=== PATIENT | female | born 1980 | race African-American/Black ===

== ENCOUNTER 2016-09-30 18:26 | Emergency (ER) | payer BC ==
[2016-09-30 18:30] VITALS: BP 129/83; BMI 35.6
--- NOTE | 2016-09-30 19:59 | DR.GENAD ---
HPI - PCP Primary Care Physician: LORI Cuenca HPI Comment HPI Comment: RIGHT 3RD MOLAR. PAIN WORSE TODAY. NO FEVER. - Complaint/Symptoms Chief Complaint Doctors Comments: TOOTH ACHE TIMES ONE DAY. Chief Complaint:: EAR AND TOOTHACHE THAT STARTED YESTERDAY - Nurses notes reviewed Nurses Notes Review: Yes - Source History Provided: Patient - Mode of Arrival Mode of Arrival: Ambulatory - Timing Onset of Chief Complaint: 09/29/16 Came on: Suddenly - Duration Duration: Constant Duration: Days - Severity Severity: Moderate PMH - PMH Past Medical History: Yes Past Medical History: Anemia, Diabetes, Hypertension Past Surgical History: Yes Surgical History: Cholecystectomy - Family History History of Family Medical Conditions: Yes Family Medical History: Diabetes Mellitus, Hypertension - Social History Does patient currently use any type of tobacco product: No Have you used tobacco products in the last 12 months: No Type of Tobacco Use: None Does any household member use tobacco: No Alcohol Use: None Do you use any recreational Drugs:: No Lives With: Family Lives Where: Home - infectious screening In the last 2 months have you had wt loss of >10#?: NO Have you had fever, night sweats or hemotysis?: No Have you traveled outside the country in the last 6 months?: No Isolation: Standard ROS - Review of Systems Constitutional: negative: Chills, Fever, Weakness, Fatigue Eyes: No Symptoms Reported. negative: Eye Pain, Discharge ENTM: Mouth Swelling. negative: Ear Pain, Nose Discharge, Nose Congestion, Loose Teeth (PAIN RIGHT LOWER 3RD MOLAR.), Throat Pain Respiratoy: No Symptoms Reported. negative: Productive Cough, Non-Productive Cough, Short of Breath, Wheezing, Hemoptysis Cardiovascular: No Symptoms Reported. negative: Chest Pain Gastrointestinal/Abdominal: negative: Nausea Genitourinary: No Symptoms Reported Neurological: No Symptoms Reported Musculoskeletal: Back Pain Integumentary: No Symptoms Reported Hematologic/Lymphatic: No Symptoms Reported Endocrine: No Symptoms Reported All Other Systems: Reviewed and Negative PE - Vital Signs Vitals: Temperature 98.0 F Pulse Rate 106 Respiratory Rate 20 Blood Pressure [Right Arm] 136/81 Blood Pressure [Left Arm] 147/83 Blood Pressure 129/83 O2 Sat by Pulse Oximetry 100 - General Limitations: No Limitations General Appearance: Alert - Head Head Exam: Normal Inspection - Eyes Eye exam: Normal Appearance - ENT ENT Exam: Normal External Ear Exam Mouth Exam: Normal Inspection (3RD LOWER MOLAR INFLAME.GUM SWOLLEN AND TENDER.) , Other Throat Exam: Normal Inspection - Neck Neck Exam: Normal Inspection - Chest Chest Inspection: Symmetric Chest Wall Rise - Respiratory Respiratory Exam: Bilateral Clear to Auscultation - Cardiovascular Cardiovascular Exam: Regular Rate, Normal Rhythm, Normal Heart Sounds - Abdominal Exam Abdominal Exam: Normal Inspection - Extremities Extremities Exam: Normal Inspection - Back Back Exam: Normal Inspection - Neurologic Neurological Exam: Alert, Oriented X3 - Psychiatric Psychiatric Exam: Normal Affect, Normal Mood - Skin Skin Exam: Normal Color MDM - Differential Diagnosis Differential Diagnosis: TOOTHACHE, GINGIVITIS Course - Education/Counseling Education/Counseling: Patient, Education Educated On: Diagnosis, Needs for Follow Up - Diagnosis Discharge Problem: Gingivitis, Pain, dental - Discharge Plan Disposition: 01 HOME, SELF-CARE Condition: Stable Prescriptions: Acetaminophen/Codeine Tab [TYLENOL w/CODEINE #3 (300 MG/30 MG) *] 1 tab PO Q4- 6H PRN #20 tab PRN Reason: Pain Amoxicillin [Amoxil 875 mg] 875 mg PO BID #20 tab Ibuprofen [MOTRIN TAB 600 MG *] 600 mg PO TID PRN #20 tab PRN Reason: Pain/Inflammation - Follow ups/Referrals Follow ups/Referrals: Cornelius SANDOVAL [Primary Care Provider] - 3 days - Instructions Instructions: Gingivitis, Dental Pain Additional Instructions: RETURN TO ED IF WORSE. SEE DENTIST OF YOUR CHOICE THIS WEEK.
[2016-09-30] MEDS ORDERED: AMOXIL CAP 500 MG PO ONE ×2 (20:05→20:10)
[2016-09-30] MEDS ORDERED: MOTRIN TAB 600 MG PO ONE ×2 (20:06→20:10)
[2016-09-30] MEDS ORDERED: TYLENOL #3 TAB (W/CODEINE) PO ONE ×2 (20:06→20:10)
== END 2016-09-30 20:16 | disposition home or self-care (01) ==
LOC: ER 18:34
DX: K05.10 Chronic gingivitis, plaque induced (principal); K08.89 Other specified disorders of teeth and supporting structures
CPT/HCPCS: 99282

== ENCOUNTER 2016-10-26 16:07 | Emergency (ER) | payer BC ==
[2016-10-26 16:11] VITALS: BP 130/82; BMI 38.0
--- NOTE | 2016-10-26 16:32 | DR.EXTPAIN ---
HPI - Time seen Time seen: 16:28 - PCP Primary Care Physician: LORI - HPI Comment HPI Comment: PATIENT HAVE PAIN AND SWELLING IN HER LEFT LEG FOR 5 DAYS. WORSE TODAY. NO FEVER. DENIES TRAUMA. - Complaint/Symptoms Chief Complaint Doctor Comments: PAIN LEFT LEG WITH SWELLING. Chief Complaint:: PT. C/O LEFT LEG PAIN AND SWELLING FROM FOOT UP TO KNEE. - Nurses notes reviewed Nurses Notes Review: Yes - Source History Provided: Patient - Mode of arrival Mode of Arrival: Ambulatory - Timing Onset of Chief Complaint: 10/21/16 - Context History of: None - Associated signs and symptoms Associated Signs and Symptoms: Pain, Swelling PMH - PMH Past Medical History: Yes Past Medical History: Anemia, Diabetes, Hypertension Past Surgical History: Yes Surgical History: Cholecystectomy - Family History History of Family Medical Conditions: Yes Family Medical History: Diabetes Mellitus, Hypertension - Social History Does patient currently use any type of tobacco product: No Have you used tobacco products in the last 12 months: No Type of Tobacco Use: None Does any household member use tobacco: No Alcohol Use: None Do you use any recreational Drugs:: No Lives With: Alone Lives Where: Home - infectious screening In the last 2 months have you had wt loss of >10#?: NO Have you had fever, night sweats or hemotysis?: No Have you traveled outside the country in the last 6 months?: No Isolation: Standard ROS - Review of Systems Constitutional: negative: Chills, Fever, Weakness, Fatigue, Loss of Appetite Eyes: No Symptoms Reported. negative: Eye Pain, Discharge ENTM: Nose Discharge, Nose Congestion. negative: Ear Pain, Throat Pain Respiratoy: No Symptoms Reported. negative: Productive Cough, Short of Breath, Wheezing, Hemoptysis Cardiovascular: Edema. negative: Chest Pain, Palpitations, Syncope Gastrointestinal/Abdominal: No Symptoms Reported. negative: Abdominal Pain, Constipation, Diarrhea, Nausea, Vomiting Genitourinary: No Symptoms Reported. negative: Discharge, Dysuria, Frequency, Hematuria Neurological: Headache. negative: Weakness, Dizziness Musculoskeletal: Back Pain, Left, Leg, Knee Integumentary: Other (SWELLING LEFT LEG.) Hematologic/Lymphatic: negative: Blood Clots, Swollen Glands, Lymphadenopathy Endocrine: No Symptoms Reported All Other Systems: Reviewed and Negative PE - Vital Signs Vitals: Temperature 98.8 F Pulse Rate 113 Respiratory Rate 17 Blood Pressure [Right Arm] 136/81 Blood Pressure [Left Arm] 147/83 Blood Pressure 130/82 O2 Sat by Pulse Oximetry 100 - General Limitations: No Limitations General Appearance: Alert - Head Head Exam: Normal Inspection - Eyes Eye exam: Normal Appearance - ENT ENT Exam: Normal External Ear Exam - Neck Neck Exam: Trachea Midline. negative: Tenderness, Meningismus, Lymphadenopathy - Chest Chest Inspection: Symmetric Chest Wall Rise - Respiratory Respiratory Exam: Normal Lung Sounds Bilat Respiratory Exam: Bilateral Clear to Auscultation - Cardiovascular Cardiovascular Exam: Regular Rate, Normal Rhythm, Normal Heart Sounds - Abdominal Exam Abdominal Exam: Normal Bowel Sounds, Soft. negative: Tenderness - Extremities Extremities Exam: Tenderness (LEFT LEG), Joint Swelling (LEFT KNEE) - Lower Extremities Gait Exam: Observed and Normal - Back Back Exam: Normal Inspection - Neurological Neurological Exam: Alert, Oriented X3 - Psychiatric Psychiatric Exam: Normal Affect, Normal Mood - Skin Skin Exam: Normal Color MDM - Differential Diagnosis Differential Diagnosis: Contusion, Fracture, Sprain, Other (NEUROPATHIC PAIN, MUSCLE STRAIN. KNEE PAIN,LEFT. DVT) Course - Treatment Treatment: SEE ORDERS. IM PAIN MED IN ED. - Reevaluation 1st: Improved - Education/Counseling Education/Counseling: Patient, Education Educated On: Treatment, Diagnosis, Needs for Follow Up ROR - Labs Reviewed Laboratory Results Reviewed?: Yes Laboratory: D-Dimer < 100 ng/mL (0-400) 10/26/16 17:48 - XRAY XRAY Interpreted by: Radiologist XRAY Findings: REPORT DISCUSS WITH PATIENT. - Diagnosis Discharge Problem: Neuropathic pain, Muscle strain Knee pain Qualifiers: Laterality: left Chronicity: acute Qualified Code(s): M25.562 - Pain in left knee - Discharge Plan Disposition: 01 HOME, SELF-CARE Condition: Stable Prescriptions: Acetaminophen W/ Codeine [Tylenol/Codeine #3 300-30 mg] 1 tab PO Q4-6H PRN #15 tab PRN Reason: Pain Ibuprofen [MOTRIN TAB 600 MG *] 600 mg PO TID PRN #20 tab PRN Reason: Pain/Inflammation - Follow ups/Referrals Follow ups/Referrals: Cornelius SANDOVAL [Primary Care Provider] - 3 days - Instructions Instructions: Knee Pain, Muscle Strain, [id number], Neuropathic Pain Additional Instructions: RETURN TO ED IF WORSE.
[2016-10-26] MEDS ORDERED: TORADOL 60 MG VIAL IM ONE (16:34)
[2016-10-26] MEDS ORDERED: TORADOL 60 MG VIAL ONE (16:53)
--- NOTE | 2016-10-26 18:10 | RAD ---
Three views of the left ankle Indication: Left ankle and knee pain without trauma. Findings: No fracture or dislocation within the left ankle. No localizing soft tissue swelling. Ankl e mortise is symmetric. No osteochondral abnormality within talar dome. Mild enthesopathic change of the plantar fascia. Impression: 1. No acute radiographic abnormality within the left ankle. 2. Mild plantar fascia enthesopathic change. Reported By:
--- NOTE | 2016-10-26 18:14 | RAD ---
HISTORY: Left knee and ankle pain. Swelling. Study: Left knee three views Comparison: None. Findings: There is no evidence for acute cortical disruption or dislocation. The medial and lateral tibiofemo ral compartments are unremarkable without significant joint space narrowing. The lateral radiograph fails to demonstrate significant joint effusion. Patellofemoral compartment is normal in appearanc e. IMPRESSION: 1. Negative exam. Reported By:
[2016-10-26] MEDS ORDERED: TYLENOL #3 TAB (W/CODEINE) PO ONE ×2 (18:47→18:53)
== END 2016-10-26 18:59 | disposition home or self-care (01) ==
LOC: ER 16:14
DX: S39.012A Strain of muscle, fascia and tendon of lower back, initial encounter (principal); M79.2 Neuralgia and neuritis, unspecified; M25.562 Pain in left knee; M72.2 Plantar fascial fibromatosis; Y33.XXXA Other specified events, undetermined intent, initial encounter; Y92.9 Unspecified place or not applicable
CPT/HCPCS: 36415; 73564; 73610; 85378; 96372; 99282; 99283; J1885

== ENCOUNTER 2016-11-02 13:48 | Emergency (ER) | payer BC ==
[2016-11-02 13:52] VITALS: BP 146/109; BMI 38.0
--- NOTE | 2016-11-02 15:17 | DR.GENAD ---
HPI - PCP Primary Care Physician: dr. sandoval - HPI Comment HPI Comment: PATIENT DENIES NICE. NO CHEST PAIN. HAVE COPD, TOOK NEB TREATMENT BEFORE COMING. SOB IS BETTER. - Complaint/Symptoms Chief Complaint Doctors Comments: LOWER EXTREMITY EDEMA WITH PAIN. Chief Complaint:: PATIENT STATED THAT HER FEET ARE SWELLING AND HURTING. - Nurses notes reviewed Nurses Notes Review: Yes - Source History Provided: Patient - Mode of Arrival Mode of Arrival: Ambulatory - Timing Onset of Chief Complaint: 10/26/16 Came on: Suddenly - Duration Duration: Constant Duration: Days - Severity Severity: Moderate PMH - PMH Past Medical History: Yes Past Medical History: Anemia, Diabetes, Hypertension Past Surgical History: Yes Surgical History: Cholecystectomy - Family History History of Family Medical Conditions: Yes Family Medical History: Diabetes Mellitus, Hypertension - Social History Does patient currently use any type of tobacco product: No Have you used tobacco products in the last 12 months: No Type of Tobacco Use: None Does any household member use tobacco: No Alcohol Use: None Do you use any recreational Drugs:: No Lives With: Family Lives Where: Home - infectious screening In the last 2 months have you had wt loss of >10#?: NO Have you had fever, night sweats or hemotysis?: No Have you traveled outside the country in the last 6 months?: No Isolation: Standard ROS - Review of Systems Constitutional: No Symptoms Reported Eyes: No Symptoms Reported. negative: Eye Pain, Discharge ENTM: Nose Congestion. negative: Ear Pain, Nose Discharge, Throat Pain Respiratoy: Non-Productive Cough. negative: Short of Breath, Wheezing, Hemoptysis Cardiovascular: Edema (ANKLE AND LEG). negative: Chest Pain Gastrointestinal/Abdominal: negative: Abdominal Pain, Constipation, Diarrhea, Nausea, Vomiting Genitourinary: No Symptoms Reported. negative: Dysuria, Frequency, Hematuria Neurological: No Symptoms Reported. negative: Headache, Weakness, Dizziness Musculoskeletal: Muscle Pain Integumentary: No Symptoms Reported Hematologic/Lymphatic: No Symptoms Reported Endocrine: No Symptoms Reported All Other Systems: Reviewed and Negative PE - Vital Signs Vitals: Temperature 97.4 F Pulse Rate 105 Respiratory Rate 20 Blood Pressure [Right Arm] 136/81 Blood Pressure [Left Arm] 147/83 Blood Pressure 146/109 O2 Sat by Pulse Oximetry 100 - General Limitations: No Limitations General Appearance: Alert - Head Head Exam: Normal Inspection - Eyes Eye exam: Normal Appearance - ENT ENT Exam: Normal External Ear Exam External Ear Exam: Normal External Inspection TM/Canal Exam: Bilateral Normal Nose Exam: Normal Nose Exam Mouth Exam: Normal Inspection Throat Exam: Normal Inspection - Neck Neck Exam: Trachea Midline. negative: Tenderness, Meningismus, Lymphadenopathy - Chest Chest Inspection: Symmetric Chest Wall Rise - Respiratory Respiratory Exam: Normal Lung Sounds Bilat Respiratory Exam: Bilateral Rhonchi, Lower Rhonchi - Cardiovascular Cardiovascular Exam: Regular Rate, Normal Rhythm, Normal Heart Sounds - Abdominal Exam Abdominal Exam: Normal Bowel Sounds, Soft. negative: Tenderness - Extremities Extremities Exam: Edema (LEG AND ANKLE) - Back Back Exam: Normal Inspection - Neurologic Neurological Exam: Alert, Oriented X3 - Psychiatric Psychiatric Exam: Normal Affect, Normal Mood - Skin Skin Exam: Normal Color MDM - Differential Diagnosis Differential Diagnosis: LOWER EXTREMITY EDEMA, ANKLE PAIN Course - Treatment Treatment: SEE ORDERS - Consultation Consultation Comments: DISCUSS PATIENT WITH DR. SANDOVAL, PCP. HE WANT PATIENT PRESCRIBE LASIX 20MG DAILY AND TO SEE HIM IN THE OFFICE THIS WEEK. - Education/Counseling Education/Counseling: Patient, Family, Education Educated On: Diagnosis, Needs for Follow Up ROR - Labs Reviewed Laboratory Results Reviewed?: Yes Result Diagrams: 11/02/16 15:26 11/02/16 15: Laboratory: WBC 5.4 X10^3/uL (3.6-10.0) 11/02/16 15: RBC 4.49 X10^6/uL (3.5-5.4) 11/02/16 15: Hgb 11.8 g/dL (12.0-16.0) L 11/02/16 15: Hct 36.4 % (36.0-47.0) 11/02/16 15: MCV 81.0 fL (80.0-100.0) 11/02/16 15: MCH 26.3 pg (27.0-34.0) L 11/02/16 15: MCHC 32.4 g/dL (33.0-35.0) L 11/02/16 15: RDW 16.1 % (11.6-16.5) 11/02/16 15: Plt Count 312 X10^3/uL (150.0-450.0) 11/02/16 15: MPV 8.5 fL (7.4-11.0) 11/02/16 15: Neut % 49.1 % (42.0-75.0) 11/02/16 15: Lymph % 37.8 % (21.0-51.0) 11/02/16 15:26 Leslie % 7.2 % (0.0-13.0) 11/02/16 15:26 Eos % 5.2 % (0.9-2.9) H 11/02/16 15:26 Baso % 0.7 % (0.2-1.0) 11/02/16 15: Neut # 2.7 x10^3/uL (2.2-4.8) 11/02/16 15: Lymph # 2.1 X10^3/uL (1.3-2.9) 11/02/16 15: Leslie # 0.4 x10^3/uL (0.3-0.8) 11/02/16 15: Eos # 0.3 x10^3/uL (0.0-0.2) H 11/02/16 15:26 Baso # 0.0 X10^3/uL (0.0-0.1) 11/02/16 15: Absolute Nucleated RBC 0.0 /100WBC 11/02/16 15:26 Sodium 141 mmol/L (136-145) 11/02/16 15:26 Corrected Sodium 143 mmol/L (136-145) 11/02/16 15:26 Potassium 4.3 mmol/L (3.5-5.1) 11/02/16 15:26 Chloride 106 mmol/L (98-107) 11/02/16 15:26 Carbon Dioxide 27.5 mmol/L (21-32) 11/02/16 15:26 BUN 9 mg/dL (7-18) 11/02/16 15:26 Creatinine 0.88 mg/dL (0.55-1.02) 11/02/16 15:26 Est GFR (MDRD) Af Amer > 60 (>60) 11/02/16 15:26 Est GFR (MDRD) Non-Af > 60 (>60) 11/02/16 15:26 Glucose 199 mg/dL (65-99) H 11/02/16 15:26 Calcium 8.7 mg/dL (8.5-10.1) 11/02/16 15:26 Corrected Calcium TNP 11/02/16 15:26 Total Bilirubin 0.20 mg/dL (0.2-1.0) 11/02/16 15:26 AST 16 Units/L (15-37) 11/02/16 15: ALT 32 Units/L (12-78) 11/02/16 15:26 Alkaline Phosphatase 74 Units/L (46-116) 11/02/16 15: Total Protein 7.6 g/dL (6.4-8.2) 11/02/16 15: Albumin 3.5 g/dL (3.4-5.0) 11/02/16 15: Globulin 4.1 g/dL (2.5-4.5) 11/02/16 15: Albumin/Globulin Ratio 0.9 Ratio (1.1-2.1) L 11/02/16 15:26 Specimen Type Clean catch urine 11/02/16 15:26 Urine Color Pale yellow (YELLOW) 11/02/16 15:26 Urine Appearance Clear (CLEAR) 11/02/16 15:26 Urine pH 6.0 (5.0 - 8.0) 11/02/16 15:26 Ur Specific Mays 1.010 (1.000-1.030) 11/02/16 15:26 Urine Protein Negative (NEGATIVE) 11/02/16 15:26 Urine Glucose (UA) 1+ (NEGATIVE) 11/02/16 15:26 Urine Ketones Negative (NEGATIVE) 11/02/16 15: Urine Occult Blood Negative (NEGATIVE) 11/02/16 15: Urine Nitrite Positive (NEGATIVE) 11/02/16 15:26 Urine Bilirubin Negative (NEGATIVE) 11/02/16 15:26 Urine Urobilinogen Normal (NORMAL) 11/02/16 15:26 Ur Leukocyte Esterase 2+ (NEGATIVE) 11/02/16 15:26 Urine RBC None seen /HPF (NEGATIVE) 11/02/16 15:26 Urine WBC 6-10 /HPF (NEGATIVE) 11/02/16 15:26 Ur Squamous Epith Cells Moderate /HPF (NEGATIVE) 11/02/16 15:26 Urine Bacteria 3+ /HPF (NEGATIVE) 11/02/16 15:26 Urine Trichomonas Few /HPF (NEGATIVE) 11/02/16 15:26 Ur Culture Indicated? Yes/culture set up 11/02/16 15:26 - XRAY XRAY Interpreted by: Radiologist XRAY Findings: REPORT DISCUSS WITH PATIENT. - Diagnosis Discharge Problem: Edema Qualifiers: Edema type: generalized Qualified Code(s): R60.1 - Generalized edema - Discharge Plan Disposition: HOME, SELF-CARE Condition: Stable Prescriptions: Furosemide [Lasix] 20 mg PO QAM #30 tab Sulfamethoxazole-Trimethoprim [BACTRIM DS TAB 800/160 MG *] 1 tab PO BID #20 tab - Follow ups/Referrals Follow ups/Referrals: Cornelius SANDOVAL [Primary Care Provider] - 3 days - Instructions Instructions: Edema, [id number], Urinary Tract Infection, [id number] Additional Instructions: RETURN TO ED IF WORSE.
[2016-11-02 15:37] LABS: BASOPHILS % (AUTO) 0.7 % (0.2-1.0); EOSINOPHILS # (AUTO) 0.3 x10^3/uL (0.0-0.2); EOSINOPHILS % (AUTO) 5.2 % (0.9-2.9); HEMATOCRIT 36.4 % (36.0-47.0); HEMOGLOBIN 11.8 g/dL (12.0-16.0); LYMPHOCYTES # (AUTO) 2.1 X10^3/uL (1.3-2.9); LYMPHOCYTES % (AUTO) 37.8 % (21.0-51.0); MEAN CORPUSCULAR HEMOGLOBIN 26.3 pg (27.0-34.0); MEAN CORPUSCULAR HGB CONC 32.4 g/dL (33.0-35.0); MEAN PLATELET VOLUME 8.5 fL (7.4-11.0); MONOCYTES # (AUTO) 0.4 x10^3/uL (0.3-0.8); MONOCYTES % (AUTO) 7.2 % (0.0-13.0); NEUTROPHILS # (AUTO) 2.7 x10^3/uL (2.2-4.8); NEUTROPHILS % (AUTO) 49.1 % (42.0-75.0); PLATELET COUNT 312 X10^3/uL (150.0-450.0); RED BLOOD COUNT 4.49 X10^6/uL (3.5-5.4); RED CELL DISTRIBUTION WIDTH 16.1 % (11.6-16.5); WHITE BLOOD COUNT 5.4 X10^3/uL (3.6-10.0)
--- NOTE | 2016-11-02 15:41 | RAD ---
HISTORY: Chest pain Study: Chest one view Comparison: July 28, 2016 Findings: The trachea is midline. The cardiac silhouette is unremarkable. The lungs are clear without focal infiltrate or effusion. The bony thorax is unremarkable. IMPRESSION: 1. No acute cardiopulmonary disease. Reported By:
[2016-11-02 15:47] LABS: ALANINE AMINOTRANSFERASE 32 Units/L (12-78); ALBUMIN 3.5 g/dL (3.4-5.0); ALKALINE PHOSPHATASE 74 Units/L (46-116); ASPARTATE AMINO TRANSFERASE 16 Units/L (15-37); BLOOD UREA NITROGEN 9 mg/dL (7-18); CALCIUM 8.7 mg/dL (8.5-10.1); CARBON DIOXIDE 27.5 mmol/L (21-32); CHLORIDE 106 mmol/L (98-107); COR NA(FOR HYPERGLY) 143 mmol/L (136-145); CREATININE 0.88 mg/dL (0.55-1.02); GLUCOSE 199 mg/dL (65-99); SODIUM 141 mmol/L (136-145); TOTAL PROTEIN 7.6 g/dL (6.4-8.2); eGFR BLACK RACES > 60 (>60); eGFR NON BLACK RACES > 60 (>60)
[2016-11-02 15:58] LABS: APPEARANCE,URINE CLEAR (CLEAR); BACTERIA,URINE 3+ /HPF (NEGATIVE); BILIRUBIN,URINE NEGATIVE (NEGATIVE); BLOOD/HEMOGLOBIN,URINE NEGATIVE (NEGATIVE); COLOR,URINE PALE YELLOW (YELLOW); GLUCOSE, URINE 1+ (NEGATIVE); KETONES,URINE NEGATIVE (NEGATIVE); LEUKOCYTE ESTERASE ,URINE 2+ (NEGATIVE); NITRITES,URINE POSITIVE (NEGATIVE); PROTEIN,URINE NEGATIVE (NEGATIVE); RBC,URINE NONE SEEN /HPF (NEGATIVE); SQUAMOUS EPITHELIAL CELL,UR MODERATE /HPF (NEGATIVE); TRICHOMONAS,URINE FEW /HPF (NEGATIVE); UROBILINOGEN,URINE NORMAL (NORMAL)
[2016-11-02] MEDS ORDERED: LASIX IVP ONE (16:25)
[2016-11-02] MEDS ORDERED: LASIX ONE (16:29)
[2016-11-03] MEDS ORDERED: LASIX PO ONE (16:28)
== END 2016-11-02 16:42 | disposition home or self-care (01) ==
LOC: ER 13:55
DX: R60.1 Generalized edema (principal); B96.29 Other Escherichia coli [E. coli] as the cause of diseases classified elsewhere
CPT/HCPCS: 36415; 71010; 80053; 81001; 85025; 87086; 87088; 87186; 99282; 99283

== ENCOUNTER 2017-01-20 13:31 | Emergency (ER) | payer BC ==
[2017-01-20 13:34] VITALS: BP 142/82; BMI 38.7
--- NOTE | 2017-01-20 14:18 | DR.GENAD ---
HPI - PCP Primary Care Physician: DR. SANDOVAL - HPI Comment HPI Comment: WORSE TODAY. NO FEVER, DYSURIA, NAUSEA OR VOMITING. - Complaint/Symptoms Chief Complaint Doctors Comments: LOWER ABDOMINAL PAIN, BACK PAIN TIMES ONE DAY. Chief Complaint:: PATIENT STATED HER STOMACH AND BACK IS BOTHING HER. - Nurses notes reviewed Nurses Notes Review: Yes - Source History Provided: Patient - Mode of Arrival Mode of Arrival: Ambulatory - Timing Onset of Chief Complaint: 01/19/17 Came on: Suddenly - Duration Duration: Constant Duration: Days - Severity Severity: Moderate PMH - PMH Past Medical History: Yes Past Medical History: Anemia, Diabetes, Hypertension Past Surgical History: Yes Surgical History: Cholecystectomy - Family History History of Family Medical Conditions: Yes Family Medical History: Diabetes Mellitus, Hypertension - Social History Does patient currently use any type of tobacco product: No Have you used tobacco products in the last 12 months: No Type of Tobacco Use: None Does any household member use tobacco: No Alcohol Use: None Do you use any recreational Drugs:: No Lives With: Family Lives Where: Home - infectious screening In the last 2 months have you had wt loss of >10#?: NO Have you had fever, night sweats or hemotysis?: No Have you traveled outside the country in the last 6 months?: No Isolation: Standard ROS - Review of Systems Constitutional: No Symptoms Reported. negative: Chills, Fever, Weakness, Fatigue Eyes: No Symptoms Reported. negative: Eye Pain, Discharge ENTM: No Symptoms Reported. negative: Ear Pain, Nose Discharge, Nose Congestion , Throat Pain Respiratoy: No Symptoms Reported. negative: Productive Cough, Non-Productive Cough, Short of Breath, Wheezing, Hemoptysis Cardiovascular: negative: Chest Pain, Edema, Palpitations Gastrointestinal/Abdominal: Abdominal Pain, Nausea. negative: Diarrhea, Vomiting Genitourinary: No Symptoms Reported. negative: Dysuria, Frequency, Hematuria Neurological: negative: Headache, Weakness, Dizziness Musculoskeletal: Back Pain, Muscle Pain Integumentary: No Symptoms Reported Hematologic/Lymphatic: No Symptoms Reported Endocrine: No Symptoms Reported All Other Systems: Reviewed and Negative PE - Vital Signs Vitals: Pulse Rate 100 Respiratory Rate 20 Blood Pressure [Right Arm] 136/81 Blood Pressure [Left Arm] 147/83 Blood Pressure 142/82 O2 Sat by Pulse Oximetry 100 - General Limitations: No Limitations General Appearance: Alert - Head Head Exam: Normal Inspection - Eyes Eye exam: Normal Appearance - ENT ENT Exam: Normal External Ear Exam TM/Canal Exam: Bilateral Normal Nose Exam: Normal Nose Exam Mouth Exam: Normal Inspection Throat Exam: Normal Inspection - Neck Neck Exam: Trachea Midline - Chest Chest Inspection: Symmetric Chest Wall Rise - Respiratory Respiratory Exam: Normal Lung Sounds Bilat Respiratory Exam: Bilateral Clear to Auscultation - Cardiovascular Cardiovascular Exam: Regular Rate, Normal Rhythm, Normal Heart Sounds - Abdominal Exam Abdominal Exam: Normal Bowel Sounds, Soft, Tenderness Abdominal Tenderness: Diffuse, Moderate - Extremities Extremities Exam: Normal Inspection - Back Back Exam: Normal Inspection, Paraspinal Tenderness - Neurologic Neurological Exam: Alert, Oriented X3, CN II-XII Intact - Psychiatric Psychiatric Exam: Normal Affect, Normal Mood - Skin Skin Exam: Normal Color MDM - Differential Diagnosis Differential Diagnosis: ABDOMINAL PAIN, BACK PAIN Course - Treatment Treatment: SEE ORDERS - Education/Counseling Education/Counseling: Patient, Education Educated On: Diagnosis ROR - Labs Reviewed Laboratory Results Reviewed?: Yes Result Diagrams: 01/20/17 14:51 01/20/17 14:51 Laboratory: WBC 5.7 X10^3/uL (3.6-10.0) 01/20/17 14:51 RBC 4.47 X10^6/uL (3.5-5.4) 01/20/17 14:51 Hgb 11.8 g/dL (12.0-16.0) L 01/20/17 14:51 Hct 36.2 % (36.0-47.0) 01/20/17 14:51 MCV 81.0 fL (80.0-100.0) 01/20/17 14:51 MCH 26.4 pg (27.0-34.0) L 01/20/17 14:51 MCHC 32.6 g/dL (33.0-35.0) L 01/20/17 14:51 RDW 16.2 % (11.6-16.5) 01/20/17 14:51 Plt Count 322 X10^3/uL (150.0-450.0) 01/20/17 14:51 MPV 8.8 fL (7.4-11.0) 01/20/17 14:51 Neut % 44.8 % (42.0-75.0) 01/20/17 14:51 Lymph % 33.5 % (21.0-51.0) 01/20/17 14:51 [place] % 9.4 % (0.0-13.0) 01/20/17 14:51 Eos % 10.5 % (0.9-2.9) H 01/20/17 14:51 Baso % 1.8 % (0.2-1.0) H 01/20/17 14:51 Neut # 2.6 x10^3/uL (2.2-4.8) 01/20/17 14:51 Lymph # 1.9 X10^3/uL (1.3-2.9) 01/20/17 14:51 [place] # 0.5 x10^3/uL (0.3-0.8) 01/20/17 14:51 Eos # 0.6 x10^3/uL (0.0-0.2) H 01/20/17 14:51 Baso # 0.1 X10^3/uL (0.0-0.1) 01/20/17 14:51 Absolute Nucleated RBC 0.0 /100WBC 01/20/17 14:51 Sodium 142 mmol/L (136-145) 01/20/17 14:51 Corrected Sodium 143 mmol/L (136-145) 01/20/17 14:51 Potassium 3.2 mmol/L (3.5-5.1) L 01/20/17 14:51 Chloride 105 mmol/L (98-107) 01/20/17 14:51 Carbon Dioxide 33.8 mmol/L (21-32) H 01/20/17 14:51 BUN 3 mg/dL (7-18) L 01/20/17 14:51 Creatinine 0.85 mg/dL (0.55-1.02) 01/20/17 14:51 Est GFR (MDRD) Af Amer > 60 (>60) 01/20/17 14:51 Est GFR (MDRD) Non-Af > 60 (>60) 01/20/17 14:51 Glucose 153 mg/dL (65-99) H 01/20/17 14:51 Calcium 8.6 mg/dL (8.5-10.1) 01/20/17 14:51 Corrected Calcium TNP 01/20/17 14:51 Total Bilirubin 0.30 mg/dL (0.2-1.0) 01/20/17 14:51 AST 24 Units/L (15-37) 01/20/17 14:51 ALT 38 Units/L (12-78) 01/20/17 14:51 Alkaline Phosphatase 79 Units/L (46-116) 01/20/17 14:51 Total Protein 8.1 g/dL (6.4-8.2) 01/20/17 14:51 Albumin 3.7 g/dL (3.4-5.0) 01/20/17 14:51 Globulin 4.4 g/dL (2.5-4.5) 01/20/17 14:51 Albumin/Globulin Ratio 0.8 Ratio (1.1-2.1) L 01/20/17 14:51 Specimen Type Clean catch urine 01/20/17 15:12 Urine Color Yellow (YELLOW) 01/20/17 15:12 Urine Appearance Cloudy (CLEAR) 01/20/17 15:12 Urine pH 6.5 (5.0 - 8.0) 01/20/17 15:12 Ur Specific [place] 1.010 (1.000-1.030) 01/20/17 15:12 Urine Protein Negative (NEGATIVE) 01/20/17 15:12 Urine Glucose (UA) Negative (NEGATIVE) 01/20/17 15:12 Urine Ketones Negative (NEGATIVE) 01/20/17 15:12 Urine Occult Blood Negative (NEGATIVE) 01/20/17 15:12 Urine Nitrite Negative (NEGATIVE) 01/20/17 15:12 Urine Bilirubin Negative (NEGATIVE) 01/20/17 15:12 Urine Urobilinogen Normal (NORMAL) 01/20/17 15:12 Ur Leukocyte Esterase 3+ (NEGATIVE) 01/20/17 15:12 Urine RBC 0-1 /HPF (NEGATIVE) 01/20/17 15:12 Urine WBC 3-4 /HPF (NEGATIVE) 01/20/17 15:12 Ur Squamous Epith Cells Many /HPF (NEGATIVE) 01/20/17 15:12 Urine Bacteria 1+ /HPF (NEGATIVE) 01/20/17 15:12 Urine Trichomonas Moderate /HPF (NEGATIVE) 01/20/17 15:12 Ur Culture Indicated? No/not indicated 01/20/17 15:12 - XRAY XRAY Interpreted by: Radiologist - Diagnosis Discharge Problem: Abdominal pain, Back pain, Trichomoniasis - Discharge Plan Disposition: 01 HOME, SELF-CARE Condition: Stable Prescriptions: Ketorolac Tromethamine [Toradol Tab] 10 mg PO BID PRN #15 tab PRN Reason: Pain Metronidazole [Flagyl Tab 500 mg] 500 mg PO TID #21 tab Ranitidine HCl [ZANTAC TAB 150 MG *] 150 mg PO BID #30 tab - Follow ups/Referrals Follow ups/Referrals: Cornelius SANDOVAL [Primary Care Provider] - 2 days - Instructions Instructions: Abdominal Pain, Adult, [id number], Back Pain, Adult, Easy-to- Read, Trichomoniasis Additional Instructions: RETURN TO ED IF WORSE.
[2017-01-20 14:58] LABS: BASOPHILS # (AUTO) 0.1 X10^3/uL (0.0-0.1); BASOPHILS % (AUTO) 1.8 % (0.2-1.0); EOSINOPHILS # (AUTO) 0.6 x10^3/uL (0.0-0.2); EOSINOPHILS % (AUTO) 10.5 % (0.9-2.9); HEMATOCRIT 36.2 % (36.0-47.0); HEMOGLOBIN 11.8 g/dL (12.0-16.0); LYMPHOCYTES # (AUTO) 1.9 X10^3/uL (1.3-2.9); LYMPHOCYTES % (AUTO) 33.5 % (21.0-51.0); MEAN CORPUSCULAR HEMOGLOBIN 26.4 pg (27.0-34.0); MEAN CORPUSCULAR HGB CONC 32.6 g/dL (33.0-35.0); MEAN PLATELET VOLUME 8.8 fL (7.4-11.0); MONOCYTES # (AUTO) 0.5 x10^3/uL (0.3-0.8); MONOCYTES % (AUTO) 9.4 % (0.0-13.0); NEUTROPHILS # (AUTO) 2.6 x10^3/uL (2.2-4.8); NEUTROPHILS % (AUTO) 44.8 % (42.0-75.0); PLATELET COUNT 322 X10^3/uL (150.0-450.0); RED BLOOD COUNT 4.47 X10^6/uL (3.5-5.4); RED CELL DISTRIBUTION WIDTH 16.2 % (11.6-16.5); WHITE BLOOD COUNT 5.7 X10^3/uL (3.6-10.0)
[2017-01-20 15:17] LABS: ALANINE AMINOTRANSFERASE 38 Units/L (12-78); ALBUMIN 3.7 g/dL (3.4-5.0); ALKALINE PHOSPHATASE 79 Units/L (46-116); ASPARTATE AMINO TRANSFERASE 24 Units/L (15-37); BLOOD UREA NITROGEN 3 mg/dL (7-18); CALCIUM 8.6 mg/dL (8.5-10.1); CARBON DIOXIDE 33.8 mmol/L (21-32); CHLORIDE 105 mmol/L (98-107); COR NA(FOR HYPERGLY) 143 mmol/L (136-145); CREATININE 0.85 mg/dL (0.55-1.02); GLUCOSE 153 mg/dL (65-99); SODIUM 142 mmol/L (136-145); TOTAL PROTEIN 8.1 g/dL (6.4-8.2); eGFR BLACK RACES > 60 (>60); eGFR NON BLACK RACES > 60 (>60)
[2017-01-20 15:50] LABS: BILIRUBIN,URINE NEGATIVE (NEGATIVE); BLOOD/HEMOGLOBIN,URINE NEGATIVE (NEGATIVE); GLUCOSE, URINE NEGATIVE (NEGATIVE); KETONES,URINE NEGATIVE (NEGATIVE); LEUKOCYTE ESTERASE ,URINE 3+ (NEGATIVE); NITRITES,URINE NEGATIVE (NEGATIVE); PH,URINE 6.5 (5.0 - 8.0); PROTEIN,URINE NEGATIVE (NEGATIVE); UROBILINOGEN,URINE NORMAL (NORMAL)
[2017-01-20 16:16] LABS: APPEARANCE,URINE CLOUDY (CLEAR); COLOR,URINE YELLOW (YELLOW); RBC,URINE 0-1 /HPF (NEGATIVE); SQUAMOUS EPITHELIAL CELL,UR MANY /HPF (NEGATIVE)
[2017-01-20 16:17] LABS: BACTERIA,URINE 1+ /HPF (NEGATIVE); TRICHOMONAS,URINE MODERATE /HPF (NEGATIVE)
[2017-01-20] MEDS ORDERED: POTASSIUM CHLORIDE LIQ 20 MEQ UDC PO ONE (16:31)
[2017-01-20] MEDS ORDERED: POTASSIUM CHLORIDE LIQ 20 MEQ UDC ONE (17:00)
== END 2017-01-20 17:04 | disposition home or self-care (01) ==
LOC: ER 13:46
DX: R10.84 Generalized abdominal pain (principal); M54.89 Other dorsalgia; A59.9 Trichomoniasis, unspecified
CPT/HCPCS: 36415; 80053; 81001; 85025; 99282; 99283

== ENCOUNTER 2017-05-07 11:24 | Emergency (ER) | payer BC ==
[2017-05-07 11:28] VITALS: BP 142/85; BMI 39.2
--- NOTE | 2017-05-07 11:44 | DR.GENAD ---
HPI - PCP Primary Care Physician: dorothea BAJWA Comment HPI Comment: PAIN WORSE TODAY. WAS UPSET WITH FAMILY ALSO. - Complaint/Symptoms Chief Complaint Doctors Comments: HEADACHE, CHEST PAIN TIMES ONE DAY. Chief Complaint:: patient stated she has been upset since yesterday and it has caused her head and chest to hurt - Nurses notes reviewed Nurses Notes Review: Yes - Source History Provided: Patient - Mode of Arrival Mode of Arrival: Ambulatory - Timing Onset of Chief Complaint: 05/06/17 Came on: Suddenly - Duration Duration: Constant Duration: Days - Severity Severity: Severe PMH - PMH Past Medical History: Yes Past Medical History: Anemia, Diabetes, Hypertension Past Surgical History: Yes Surgical History: Cholecystectomy - Family History History of Family Medical Conditions: Yes Family Medical History: Diabetes Mellitus, Hypertension - Social History Does patient currently use any type of tobacco product: No Have you used tobacco products in the last 12 months: No Type of Tobacco Use: None Does any household member use tobacco: No Alcohol Use: None Do you use any recreational Drugs:: No Lives With: Family Lives Where: Home - infectious screening In the last 2 months have you had wt loss of >10#?: NO Have you had fever, night sweats or hemotysis?: No Have you traveled outside the country in the last 6 months?: No Isolation: Standard ROS - Review of Systems Constitutional: No Symptoms Reported Eyes: No Symptoms Reported ENTM: No Symptoms Reported Respiratoy: No Symptoms Reported Gastrointestinal/Abdominal: No Symptoms Reported Genitourinary: No Symptoms Reported Neurological: Headache Musculoskeletal: No Symptoms Reported Integumentary: No Symptoms Reported Hematologic/Lymphatic: No Symptoms Reported All Other Systems: Reviewed and Negative PE - Vital Signs Vitals: Temperature 98.9 F Pulse Rate 101 Respiratory Rate 18 Blood Pressure [Right Arm] 136/81 Blood Pressure [Left Arm] 147/83 Blood Pressure 142/85 O2 Sat by Pulse Oximetry 99 - General Limitations: No Limitations General Appearance: Alert - Head Head Exam: Normal Inspection - Eyes Eye exam: Normal Appearance - ENT ENT Exam: Normal External Ear Exam External Ear Exam: Normal External Inspection TM/Canal Exam: Bilateral Normal Nose Exam: Normal Nose Exam Mouth Exam: Normal Inspection Throat Exam: Normal Inspection - Neck Neck Exam: Normal Inspection - Chest Chest Inspection: Symmetric Chest Wall Rise - Respiratory Respiratory Exam: Normal Lung Sounds Bilat Respiratory Exam: Bilateral Clear to Auscultation - Cardiovascular Cardiovascular Exam: Regular Rate, Normal Rhythm, Normal Heart Sounds - Abdominal Exam Abdominal Exam: Normal Bowel Sounds, Soft. negative: Tenderness - Extremities Extremities Exam: Normal Inspection - Back Back Exam: Normal Inspection - Neurologic Neurological Exam: Alert, Oriented X3, CN II-XII Intact, Normal Gait, Reflexes Normal. negative: Motor Sensory Deficit - Skin Skin Exam: Normal Color MDM - Differential Diagnosis Differential Diagnosis: HEADACHE, CHEST PAIN Course - Treatment Treatment: SEE ORDERS. IM TORADOL IN ED, PAIN IMPROVING - Education/Counseling Education/Counseling: Patient, Education Educated On: Treatment, Diagnosis, Needs for Follow Up ROR - XRAY XRAY Interpreted by: Radiologist XRAY Findings: REPORT DISCUSS WITH PATIENT. - Diagnosis Discharge Problem: Head ache Qualifiers: Headache type: tension-type Headache chronicity pattern: acute headache Intractability: intractable Qualified Code(s): G44.201 - Tension-type headache, unspecified, intractable Chest pain Qualifiers: Chest pain type: intercostal pain Qualified Code(s): R07.82 - Intercostal pain - Discharge Plan Disposition: 01 HOME, SELF-CARE Condition: Stable Prescriptions: Butalb/Acetaminophen/Caffeine [Fioricet 50-300-40 mg] 1 cap PO Q8H PRN #30 cap PRN Reason: Migraine Headache Hydroxyzine Pamoate [Vistaril] 25 mg PO TID PRN #15 cap PRN Reason: - Follow ups/Referrals Follow ups/Referrals: Cornelius SANDOVAL [Primary Care Provider] - 3 days - Instructions Instructions: Headache and Arthritis Additional Instructions: RETURN TO ED IF WORSE.
[2017-05-07] MEDS ORDERED: TORADOL 60 MG VIAL IM ONE (11:52)
[2017-05-07] MEDS ORDERED: TORADOL 60 MG VIAL ONE (12:01)
--- NOTE | 2017-05-07 12:46 | RAD ---
Examination: AP chest History: Headache and chest pain Comparison reference: 11/02/2016 Findings: Continued normal heart size with clear lungs and pleural spaces. Impression: No change; no acute disease. Reported By:
--- NOTE | 2017-05-07 12:48 | CT ---
HISTORY: Headache. Study: CT brain without contrast Comparison: None. Technique: Multiple axial images of the brain were obtained from the skull base to the vertex without administra tion of IV contrast. Findings: No acute intraparenchymal hemorrhage or mass can be identified. No extra-axial fluid collections are seen. No alteration in the attenuation of the brain parenchyma can be identified to suggest acute o r subacute ischemic change. Should the patient's clinical signs persist, then follow-up MRI outpatien t imaging of the brain is recommended. The ventricular system is symmetric and nondilated. The extra cranial structures are grossly unremarkable. IMPRESSION: No acute intracranial process can be identified. Reported By:
== END 2017-05-07 13:00 | disposition home or self-care (01) ==
LOC: ER 11:24
DX: R07.82 Intercostal pain (principal); G44.201 Tension-type headache, unspecified, intractable
CPT/HCPCS: 70450; 71010; 96372; 99282; J1885

== ENCOUNTER → 2017-05-11 | Outpatient (CLI) | payer BC ==
--- NOTE | 2017-05-11 16:16 | US ---
HISTORY: Six-month follow-up right breast nodule, chronic clear nipple discharge Right breast digital diagnostic mammography with CAD and right breast ultrasound. Comparison: October and April 2016 FINDINGS: Mammogram: CC and MLO projections of the right breast were obtained. Heterogeneously dense fibroglan dular tissue is seen to be present without significant interval change. No new or developing suspici ous architectural distortion, mass or clustered microcalcifications can be observed to suggest malign jusitn. There are stable regions of nodularity and focal asymmetry. No skin thickening or nipple retra ction is appreciated. No pathological lymphadenopathy can be identified. Benign-appearing calcifica tions are noted. Ultrasound: Multiple grayscale and color Doppler images of the 12 o'clock and subareolar right breast were obtained. At 12 o'clock approximately 2 cm from the nipple, there has been slight interval decr eased size of a horizontally oriented macro lobulated but smoothly marginated and well circumscribed 1.2 cm hypoechoic nodule with posterior acoustical enhancement and no internal Doppler flow which pre viously measured 1.4 cm most compatible with a benign fibroadenoma or complex cyst. Subareolar ductal ectasia is noted without intraluminal filling defect. No suspicious cystic or solid nodules are seen to warrant biopsy. IMPRESSION: NO RADIOGRAPHIC EVIDENCE OF MALIGNANCY. ACR CATEGORY 2 - benign findings. FOLLOW-UP EXAM 1 YEAR. Diagnostic CAD was utilized and reviewed. * 0 (ZERO) - ASSESSMENT INCOMPLETE; ADDITIONAL IMAGING IS NEEDED. * 1/ (ONE) - NEGATIVE. * 2/II (TWO) - BENIGN FINDINGS. * 3/III (THREE) - PROBABLY BENIGN FINDING; SHORT INTERVAL FOLLOW-UP SUGGESTED. * 4/IV (FOUR) - SUSPICIOUS ABNORMALITY; BIOPSY SHOULD BE CONSIDERED. * 5/V - HIGHLY SUSPICIOUS OF MALIGNANCY; BIOPSY SHOULD BE PERFORMED. A NEGATIVE X-RAY REPORT SHOULD NOT DELAY BIOPSY IF A DOMINANT OR CLINICALLY SUSPICIOUS MASS IS PRESENT; 4 TO 8 PERCENT OF CANCERS ARE NOT IDENTIFIED BY X-RAY. A NEGA TIVE REPORT MAY REINFORCE THE CLINICAL IMPRESSION. ADENOSIS AND DENSE BREASTS MAY OBSCURE AN UNDERLY ING NEOPLASM. Reported By:
== END ==
LOC: RAD 13:49
PROVIDERS: ATTEND Specialist
DX: N63.0 Unspecified lump in unspecified breast (principal)
CPT/HCPCS: 76642; 77065

== ENCOUNTER 2017-05-13 19:51 | Emergency (ER) | payer BC ==
[2017-05-13 19:58] VITALS: BMI 40.2
[2017-05-13 20:33] LABS: BILIRUBIN,URINE NEGATIVE (NEGATIVE); BLOOD/HEMOGLOBIN,URINE NEGATIVE (NEGATIVE); GLUCOSE, URINE NEGATIVE (NEGATIVE); KETONES,URINE NEGATIVE (NEGATIVE); LEUKOCYTE ESTERASE ,URINE 3+ (NEGATIVE); NITRITES,URINE NEGATIVE (NEGATIVE); PROTEIN,URINE 1+ (NEGATIVE); UROBILINOGEN,URINE NORMAL (NORMAL)
[2017-05-13 20:48] LABS: APPEARANCE,URINE SLIGHTLY HAZY (CLEAR); BACTERIA,URINE TRACE /HPF (NEGATIVE); COLOR,URINE YELLOW (YELLOW); SQUAMOUS EPITHELIAL CELL,UR NUMEROUS /HPF (NEGATIVE); YEAST,URINE FEW /HPF (NEGATIVE)
[2017-05-13] MEDS ORDERED: ANTIVERT TAB 25 MG PO ONE (20:52)
[2017-05-13] MEDS ORDERED: ANTIVERT TAB 25 MG ONE (20:58)
--- NOTE | 2017-05-13 20:58 | DR.GENAD ---
HPI - Complaint/Symptoms Chief Complaint Doctors Comments: A 36 y/o female presenting with compplain of not feeling good generally. I have been feeling light headed and my gait is off. These symptoms have been ongoing x 3 days. There is no nausea. Further conversations revealed BS ranging between 60 and low eighties in past few days which is unusual for her. She used to be mostly in the 10s. She takes Metformin 850 mg BID + Glyburide. Admittedly, she has been eating only 1 meal per day in last few days due to poor appetite but yet taking scheduled OHAs. Chief Complaint:: PT STATES THAT HER BS WAS 66 LAST NIGHT WHEN SHE CHECKED IT AND SHE HAS BEEN FEELING LIGHT HEADED AND DIZZY ALL DAY AND HAS BEEN STUMBLING AND FALLING. STATES HER BS WAS 75 TODAY ABOUT 10 MINUTES AGO. Self Treatment fo Chief Complaint: PT STATES SHE ATE SOME PEANUT BUTTER AND GINGERALE EARLIER - Nurses notes reviewed Nurses Notes Review: Yes - Source History Provided: Patient - Mode of Arrival Mode of Arrival: Ambulatory - Timing Onset of Chief Complaint: 05/13/17 Came on: Gradually - Severity Severity: Moderate - Associated Signs and Symptoms Associated Signs and Symptoms: none PMH - PMH Past Medical History: Yes Past Medical History: Anemia, Diabetes, Hypertension Past Surgical History: Yes Surgical History: Cholecystectomy - Family History History of Family Medical Conditions: Yes Family Medical History: Diabetes Mellitus, Hypertension - Social History Do you use any recreational Drugs:: No - infectious screening Have you traveled outside the country in the last 6 months?: No ROS - Review of Systems Constitutional: No Symptoms Reported Eyes: No Symptoms Reported ENTM: No Symptoms Reported Respiratoy: No Symptoms Reported Cardiovascular: No Symptoms Reported Gastrointestinal/Abdominal: No Symptoms Reported Genitourinary: No Symptoms Reported Neurological: Dizziness Musculoskeletal: No Symptoms Reported Integumentary: No Symptoms Reported Hematologic/Lymphatic: No Symptoms Reported Endocrine: Decreased Appetite Psychiatric: No Symptoms Reported All Other Systems: Reviewed and Negative PE - Vital Signs Vitals: Temperature 98.6 F Pulse Rate 108 Respiratory Rate 18 Blood Pressure [Right Arm] 136/81 Blood Pressure [Left Arm] 147/83 Blood Pressure 151/91 O2 Sat by Pulse Oximetry 98 - General Limitations: No Limitations General Appearance: Alert, In No Apparent Distress - Head Head Exam: Normal Inspection - Eyes Eye exam: Normal Appearance, PERRL, EOMI - ENT ENT Exam: Normal Exam, Normal Oropharynx, Normal External Ear Exam, Mucous Membranes Moist, TM's Normal Bilaterally Throat Exam: Normal Inspection - Neck Neck Exam: Normal Inspection, Full ROM, Trachea Midline - Chest Chest Inspection: Normal Inspection, Symmetric Chest Wall Rise - Respiratory Respiratory Exam: Normal Lung Sounds Bilat - Cardiovascular Cardiovascular Exam: Regular Rate, Normal Rhythm - Abdominal Exam Abdominal Exam: Normal Inspection, Normal Bowel Sounds, Soft - Extremities Extremities Exam: Normal Inspection, Full ROM - Back Back Exam: Normal Inspection - Neurologic Neurological Exam: Alert, Oriented X3, CN II-XII Intact - Psychiatric Psychiatric Exam: Normal Affect, Normal Mood - Skin Skin Exam: Warm, Dry, Intact, Normal Color Course - Reevaluation 1st: Improved 2nd: Improved - Education/Counseling Education/Counseling: Patient, Education (need to eat her 2 or 3 meals per day while on OHAs Cont. to monito FBS.), Counseling Educated On: Treatment, Diagnosis, Prognosis, Needs for Follow Up ROR - Labs Reviewed Result Diagrams: 05/13/17 21:00 05/13/17 21:00 Laboratory: WBC 7.4 X10^3/uL (3.6-10.0) 05/13/17 21:00 RBC 4.40 X10^6/uL (3.5-5.4) 05/13/17 21:00 Hgb 11.8 g/dL (12.0-16.0) L 05/13/17 21:00 Hct 35.5 % (36.0-47.0) L 05/13/17 21:00 MCV 80.6 fL (80.0-100.0) 05/13/17 21:00 MCH 26.8 pg (27.0-34.0) L 05/13/17 21:00 MCHC 33.2 g/dL (33.0-35.0) 05/13/17 21:00 RDW 16.1 % (11.6-16.5) 05/13/17 21:00 Plt Count 286 X10^3/uL (150.0-450.0) 05/13/17 21:00 MPV 8.9 fL (7.4-11.0) 05/13/17 21:00 Neut % 53.5 % (42.0-75.0) 05/13/17 21:00 Lymph % 31.4 % (21.0-51.0) 05/13/17 21:00 [place] % 7.4 % (0.0-13.0) 05/13/17 21:00 Eos % 7.1 % (0.9-2.9) H 05/13/17 21:00 Baso % 0.6 % (0.2-1.0) 05/13/17 21:00 Neut # 3.9 x10^3/uL (2.2-4.8) 05/13/17 21:00 Lymph # 2.3 X10^3/uL (1.3-2.9) 05/13/17 21:00 [place] # 0.5 x10^3/uL (0.3-0.8) 05/13/17 21:00 Eos # 0.5 x10^3/uL (0.0-0.2) H 05/13/17 21:00 Baso # 0.0 X10^3/uL (0.0-0.1) 05/13/17 21:00 Absolute Nucleated RBC 0.1 /100WBC 05/13/17 21:00 Sodium 141 mmol/L (136-145) 05/13/17 21:00 Corrected Sodium TNP 05/13/17 21:00 Potassium 4.0 mmol/L (3.5-5.1) 05/13/17 21:00 Chloride 106 mmol/L (98-107) 05/13/17 21:00 Carbon Dioxide 26.7 mmol/L (21-32) 05/13/17 21:00 BUN 6 mg/dL (7-18) L 05/13/17 21:00 Creatinine 0.86 mg/dL (0.55-1.02) 05/13/17 21:00 Est GFR (MDRD) Af Amer > 60 (>60) 05/13/17 21:00 Est GFR (MDRD) Non-Af > 60 (>60) 05/13/17 21:00 Glucose 110 mg/dL (65-99) H 05/13/17 21:00 POC Glucose (mg/dL) 110 mg/dL (65-99) H 05/13/17 20:24 Calcium 9.0 mg/dL (8.5-10.1) 05/13/17 21:00 Specimen Type Clean catch urine 05/13/17 20:23 Urine Color Yellow (YELLOW) 05/13/17 20:23 Urine Appearance Slightly hazy (CLEAR) 05/13/17 20:23 Urine pH 6.0 (5.0 - 8.0) 05/13/17 20:23 Ur Specific [place] 1.015 (1.000-1.030) 05/13/17 20:23 Urine Protein 1+ (NEGATIVE) 05/13/17 20:23 Urine Glucose (UA) Negative (NEGATIVE) 05/13/17 20: Urine Ketones Negative (NEGATIVE) 05/13/17 20:23 Urine Occult Blood Negative (NEGATIVE) 05/13/17 20: Urine Nitrite Negative (NEGATIVE) 05/13/17 20: Urine Bilirubin Negative (NEGATIVE) 05/13/17 20:23 Urine Urobilinogen Normal (NORMAL) 05/13/17 20:23 Ur Leukocyte Esterase 3+ (NEGATIVE) 05/13/17 20:23 Urine RBC 3-5 /HPF (NEGATIVE) 05/13/17 20:23 Urine WBC 2-4 /HPF (NEGATIVE) 05/13/17 20:23 Ur Squamous Epith Cells Numerous /HPF (NEGATIVE) 05/13/17 20:23 Urine Bacteria Trace /HPF (NEGATIVE) 05/13/17 20:23 Urine Yeast Few /HPF (NEGATIVE) 05/13/17 20:23 Ur Culture Indicated? No/not indicated 05/13/17 20:23 - Diagnosis Discharge Problem: Hypoglycemia, Light headedness, UTI (urinary tract infection) - Discharge Plan Condition: Stable - Follow ups/Referrals Follow ups/Referrals: Cornelius SANDOVAL [Primary Care Provider] - 3 days - Instructions
[2017-05-13 21:24] LABS: BLOOD UREA NITROGEN 6 mg/dL (7-18); CARBON DIOXIDE 26.7 mmol/L (21-32); CHLORIDE 106 mmol/L (98-107); CREATININE 0.86 mg/dL (0.55-1.02); SODIUM 141 mmol/L (136-145); eGFR BLACK RACES > 60 (>60); eGFR NON BLACK RACES > 60 (>60)
[2017-05-13 21:30] LABS: BASOPHILS % (AUTO) 0.6 % (0.2-1.0); EOSINOPHILS # (AUTO) 0.5 x10^3/uL (0.0-0.2); EOSINOPHILS % (AUTO) 7.1 % (0.9-2.9); HEMATOCRIT 35.5 % (36.0-47.0); HEMOGLOBIN 11.8 g/dL (12.0-16.0); LYMPHOCYTES # (AUTO) 2.3 X10^3/uL (1.3-2.9); LYMPHOCYTES % (AUTO) 31.4 % (21.0-51.0); MEAN CORPUSCULAR HEMOGLOBIN 26.8 pg (27.0-34.0); MEAN CORPUSCULAR HGB CONC 33.2 g/dL (33.0-35.0); MEAN CORPUSCULAR VOLUME 80.6 fL (80.0-100.0); MEAN PLATELET VOLUME 8.9 fL (7.4-11.0); MONOCYTES # (AUTO) 0.5 x10^3/uL (0.3-0.8); MONOCYTES % (AUTO) 7.4 % (0.0-13.0); NEUTROPHILS # (AUTO) 3.9 x10^3/uL (2.2-4.8); NEUTROPHILS % (AUTO) 53.5 % (42.0-75.0); PLATELET COUNT 286 X10^3/uL (150.0-450.0); RED CELL DISTRIBUTION WIDTH 16.1 % (11.6-16.5); WHITE BLOOD COUNT 7.4 X10^3/uL (3.6-10.0)
[2017-05-13] MEDS ORDERED: AMOXIL CAP 500 MG PO ONE ×2 (21:39→21:40)
[2017-05-13 21:52] VITALS: BP 148/90
== END 2017-05-13 21:48 | disposition home or self-care (01) ==
LOC: ER 19:54
DX: E16.2 Hypoglycemia, unspecified (principal); R42 Dizziness and giddiness; N39.0 Urinary tract infection, site not specified
CPT/HCPCS: 36415; 80048; 81001; 85025; 99282

== ENCOUNTER 2017-05-31 00:11 | Emergency (ER) | payer BC ==
--- NOTE | 2017-05-31 00:33 | DR.GENAD ---
HPI - HPI Comment HPI Comment: PATIENT SAID SHE GOT SCARED WHEN SHE RECOVER. THEN HER CHEST STARTED TO HURT. NO SOB, NAUSEA OR RADIATION OF PAIN. HAVE TACHYCARDIA AND FEEL WEAK. NO FEVER. SLIGHT CONGESTION PRESENT. - Complaint/Symptoms Chief Complaint Doctors Comments: SYNCOPAL EPISODE AT HOME. WITNESS BY AUNT. - Nurses notes reviewed Nurses Notes Review: Yes - Source History Provided: Patient - Mode of Arrival Mode of Arrival: Stretcher - Timing Came on: Suddenly - Duration Duration: Since Onset Duration: Hours - Severity Severity: Moderate PMH - PMH Past Medical History: Anemia, Diabetes, Hypertension Past Surgical History: Yes Surgical History: Cholecystectomy - Family History Family Medical History: Diabetes Mellitus, Hypertension - Social History Do you use any recreational Drugs:: No ROS - Review of Systems Constitutional: No Symptoms Reported. negative: Chills, Fever, Weakness, Fatigue, Loss of Appetite Eyes: No Symptoms Reported. negative: Eye Pain, Discharge ENTM: Nose Congestion. negative: Ear Pain, Nose Discharge, Throat Pain Respiratoy: Non-Productive Cough, Short of Breath. negative: Productive Cough, Wheezing, Hemoptysis Cardiovascular: Chest Pain. negative: Edema, Palpitations Gastrointestinal/Abdominal: negative: Abdominal Pain, Diarrhea, Nausea, Vomiting Genitourinary: negative: Dysuria, Frequency, Hematuria Neurological: No Symptoms Reported, Anxiety, Headache, Weakness, Dizziness Musculoskeletal: No Symptoms Reported Integumentary: No Symptoms Reported Hematologic/Lymphatic: No Symptoms Reported Endocrine: No Symptoms Reported All Other Systems: Reviewed and Negative PE - Vital Signs Vitals: Temperature 98.4 F Pulse Rate [Left] 112 Pulse Rate 127 Respiratory Rate 20 Blood Pressure [Right Arm] 148/90 Blood Pressure [Left Arm] 146/92 Blood Pressure 193/79 O2 Sat by Pulse Oximetry 100 - General Limitations: No Limitations General Appearance: Alert - Head Head Exam: Normal Inspection - Eyes Eye exam: Normal Appearance - ENT ENT Exam: Normal External Ear Exam External Ear Exam: Normal External Inspection TM/Canal Exam: Bilateral Normal Nose Exam: Normal Nose Exam Mouth Exam: Normal Inspection Throat Exam: Normal Inspection - Neck Neck Exam: Trachea Midline - Chest Chest Inspection: Symmetric Chest Wall Rise - Respiratory Respiratory Exam: Normal Lung Sounds Bilat Respiratory Exam: Bilateral Clear to Auscultation - Cardiovascular Cardiovascular Exam: Regular Rate, Normal Rhythm, Normal Heart Sounds - Abdominal Exam Abdominal Exam: Normal Bowel Sounds, Soft. negative: Tenderness - Extremities Extremities Exam: Normal Inspection - Back Back Exam: Normal Inspection - Neurologic Neurological Exam: Alert, Oriented X3, CN II-XII Intact. negative: Motor Sensory Deficit - Psychiatric Psychiatric Exam: Anxious - Skin Skin Exam: Normal Color MDM - Additional Information Additional Information Obtained From: Family - Differential Diagnosis Differential Diagnosis: SYNCOPAL EPISODE, CHEST PAIN, Course - Treatment Treatment: SEE ORDERS - Education/Counseling Education/Counseling: Patient, Family, Education Educated On: Diagnosis, Needs for Follow Up ROR - Labs Reviewed Laboratory Results Reviewed?: Yes Result Diagrams: 05/31/17 00:43 05/31/17 00:43 Laboratory: WBC 6.7 X10^3/uL (3.6-10.0) 05/31/17 00:43 RBC 4.80 X10^6/uL (3.5-5.4) 05/31/17 00:43 Hgb 12.9 g/dL (12.0-16.0) 05/31/17 00:43 Hct 38.7 % (36.0-47.0) 05/31/17 00:43 MCV 80.6 fL (80.0-100.0) 05/31/17 00:43 MCH 26.8 pg (27.0-34.0) L 05/31/17 00:43 MCHC 33.3 g/dL (33.0-35.0) 05/31/17 00:43 RDW 15.6 % (11.6-16.5) 05/31/17 00:43 Plt Count 342 X10^3/uL (150.0-450.0) 05/31/17 00:43 MPV 8.8 fL (7.4-11.0) 05/31/17 00:43 Neut % 45.2 % (42.0-75.0) 05/31/17 00:43 Lymph % 44.2 % (21.0-51.0) 05/31/17 00:43 Cameron % 5.6 % (0.0-13.0) 05/31/17 00:43 Eos % 4.1 % (0.9-2.9) H 05/31/17 00:43 Baso % 0.9 % (0.2-1.0) 05/31/17 00:43 Neut # 3.0 x10^3/uL (2.2-4.8) 05/31/17 00:43 Lymph # 3.0 X10^3/uL (1.3-2.9) H 05/31/17 00:43 Cameron # 0.4 x10^3/uL (0.3-0.8) 05/31/17 00:43 Eos # 0.3 x10^3/uL (0.0-0.2) H 05/31/17 00:43 Baso # 0.1 X10^3/uL (0.0-0.1) 05/31/17 00:43 Absolute Nucleated RBC 0.1 /100WBC 05/31/17 00:43 Sodium 142 mmol/L (136-145) 05/31/17 00:43 Corrected Sodium TNP 05/31/17 00:43 Potassium 3.8 mmol/L (3.5-5.1) 05/31/17 00:43 Chloride 104 mmol/L (98-107) 05/31/17 00:43 Carbon Dioxide 26.7 mmol/L (21-32) 05/31/17 00:43 BUN 11 mg/dL (7-18) 05/31/17 00:43 Creatinine 0.82 mg/dL (0.55-1.02) 05/31/17 00:43 Est GFR (MDRD) Af Amer > 60 (>60) 05/31/17 00:43 Est GFR (MDRD) Non-Af > 60 (>60) 05/31/17 00:43 Glucose 105 mg/dL (65-99) H 05/31/17 00:43 Calcium 9.6 mg/dL (8.5-10.1) 05/31/17 00:43 Corrected Calcium TNP 05/31/17 00:43 Total Bilirubin 0.30 mg/dL (0.2-1.0) 05/31/17 00:43 AST 17 Units/L (15-37) 05/31/17 00:43 ALT 32 Units/L (12-78) 05/31/17 00:43 Alkaline Phosphatase 74 Units/L (46-116) 05/31/17 00:43 Creatine Kinase 116 Units/L (26-192) 05/31/17 00:43 CK-MB (CK-2) < 1.0 ng/mL (0-4.0) 05/31/17 00:43 CK/CKMB % Calc 0.9 % (<4) 05/31/17 00:43 Troponin I < 0.02 ng/mL (0-1.5) 05/31/17 00:43 Total Protein 8.2 g/dL (6.4-8.2) 05/31/17 00:43 Albumin 4.1 g/dL (3.4-5.0) 05/31/17 00:43 Globulin 4.1 g/dL (2.5-4.5) 05/31/17 00:43 Albumin/Globulin Ratio 1.0 Ratio (1.1-2.1) L 05/31/17 00:43 - XRAY XRAY Interpreted by: Radiologist XRAY Findings: REPORT DISCUSS WITH PATIENT. - EKG Rhythm: NSR - Diagnosis Discharge Problem: Episode of syncope Qualifiers: Syncope type: unspecified Qualified Code(s): R55 - Syncope and collapse Chest pain Qualifiers: Chest pain type: precordial pain Qualified Code(s): R07.2 - Precordial pain - Discharge Plan Disposition: 01 HOME, SELF-CARE Condition: Stable - Follow ups/Referrals Follow ups/Referrals: DANIELLE WINSTON [Primary Care Provider] - 06/01/17 - Instructions Instructions: Chest Pain Observation, Syncope, [id number] Additional Instructions: RETURN TO ED IF WORSE.
[2017-05-31 00:53] VITALS: BMI 35.7
[2017-05-31 00:55] LABS: BASOPHILS # (AUTO) 0.1 X10^3/uL (0.0-0.1); BASOPHILS % (AUTO) 0.9 % (0.2-1.0); EOSINOPHILS # (AUTO) 0.3 x10^3/uL (0.0-0.2); EOSINOPHILS % (AUTO) 4.1 % (0.9-2.9); HEMATOCRIT 38.7 % (36.0-47.0); HEMOGLOBIN 12.9 g/dL (12.0-16.0); LYMPHOCYTES % (AUTO) 44.2 % (21.0-51.0); MEAN CORPUSCULAR HEMOGLOBIN 26.8 pg (27.0-34.0); MEAN CORPUSCULAR HGB CONC 33.3 g/dL (33.0-35.0); MEAN CORPUSCULAR VOLUME 80.6 fL (80.0-100.0); MEAN PLATELET VOLUME 8.8 fL (7.4-11.0); MONOCYTES # (AUTO) 0.4 x10^3/uL (0.3-0.8); MONOCYTES % (AUTO) 5.6 % (0.0-13.0); NEUTROPHILS % (AUTO) 45.2 % (42.0-75.0); PLATELET COUNT 342 X10^3/uL (150.0-450.0); RED CELL DISTRIBUTION WIDTH 15.6 % (11.6-16.5); WHITE BLOOD COUNT 6.7 X10^3/uL (3.6-10.0)
--- NOTE | 2017-05-31 01:04 | CT ---
CT brain without contrast Indication: Anxiety with difficulty breathing Comparison: None available Technique: Multiple axial images of the brain were obtained from the skull base to the vertex without administra tion of IV contrast. Findings: No acute intraparenchymal hemorrhage or mass can be identified. No extra-axial fluid collections are seen. No alteration in the attenuation of the brain parenchyma can be identified to suggest acute o r subacute ischemic change. The ventricular system is symmetric and nondilated. The extracranial st ructures are grossly unremarkable. IMPRESSION: 1. No acute intracranial process is identified. Reported By:
[2017-05-31 01:08] LABS: BLOOD UREA NITROGEN 11 mg/dL (7-18); CALCIUM 9.6 mg/dL (8.5-10.1); CARBON DIOXIDE 26.7 mmol/L (21-32); CHLORIDE 104 mmol/L (98-107); CREATININE 0.82 mg/dL (0.55-1.02); SODIUM 142 mmol/L (136-145); TROPONIN I < 0.02 ng/mL (0-1.5); eGFR BLACK RACES > 60 (>60); eGFR NON BLACK RACES > 60 (>60)
[2017-05-31 01:14] LABS: ALANINE AMINOTRANSFERASE 32 Units/L (12-78); ALBUMIN 4.1 g/dL (3.4-5.0); ALKALINE PHOSPHATASE 74 Units/L (46-116); ASPARTATE AMINO TRANSFERASE 17 Units/L (15-37); CKMB % 0.9 % (<4); CREATINE KINASE 116 Units/L (26-192); CREATINE KINASE MB < 1.0 ng/mL (0-4.0); TOTAL PROTEIN 8.2 g/dL (6.4-8.2)
[2017-05-31] MEDS ORDERED: MORPHINE SULFATE INJ 4 MG IM ONE (02:03)
[2017-05-31] MEDS ORDERED: ZOFRAN INJ 4 MG VIAL IM ONE (02:03)
[2017-05-31] MEDS ORDERED: ZOFRAN INJ 4 MG VIAL ONE (02:07)
[2017-05-31] MEDS ORDERED: MORPHINE SULFATE INJ 4 MG ONE (02:08)
[2017-05-31 03:30] VITALS: BP 146/92
== END 2017-05-31 02:55 | disposition home or self-care (01) ==
LOC: ER 00:11
DX: R55 Syncope and collapse (principal); R07.2 Precordial pain
CPT/HCPCS: 36415; 70450; 71010; 80053; 82550; 82553; 84484; 85025; 93005; 93010; 96372; 99283; J2270; J2405

== ENCOUNTER 2017-07-08 08:23 | Emergency (ER) | payer BC ==
[2017-07-08 08:26] VITALS: BMI 39.9
[2017-07-08 08:32] VITALS: BP 135/79
--- NOTE | 2017-07-08 08:52 | DR.URIAD ---
HPI - Time Seen Time seen: 08:45 - PCP Primary Care Physician: LORI - HPI Comment HPI Comment: WORSE TODAY. - Complaint Chief Complaint Doctors Comments: BODYACHE, CHILLS, COUGH AND CONGESTIONS TIMES 2 DAYS. Chief Complaint:: PT. C/O BODY ACHES, CHILLS, COUGH, CHEST PAIN WHEN COUGHING, HEADACHE. - Reviewed Nurses Notes Reviewed: Yes - Source History Provided: Patient - Mode of Arrival Mode of Arrival: Ambulatory - Timing Onset of Chief Complaint: 07/06/17 - Context Recent Treated Infections: None History of Respiratory: None - Quality Quality of Cough: Productive, Yellow Rhinorrhea: Brown Shortness of Breath: Moderate - Associated Signs and Symptoms Other Signs and Symptoms: Chills, Cough, Myalgias, Sore Throat PMH - PMH Past Medical History: Yes Past Medical History: Anemia, Diabetes, Hypertension Past Surgical History: Yes Surgical History: Cholecystectomy - Family History History of Family Medical Conditions: Yes Family Medical History: Diabetes Mellitus, Hypertension - Social History Does patient currently use any type of tobacco product: No Have you used tobacco products in the last 12 months: No Type of Tobacco Use: None Does any household member use tobacco: No Alcohol Use: None Do you use any recreational Drugs:: No Lives With: Alone Lives Where: Home - infectious screening In the last 2 months have you had wt loss of >10#?: NO Have you had fever, night sweats or hemotysis?: No Have you traveled outside the country in the last 6 months?: No Isolation: Standard ROS - Review of Systems Constitutional: Chills, Weakness, Fatigue Eyes: negative: Eye Pain, Discharge ENTM: Nose Discharge, Nose Congestion, Throat Pain. negative: Ear Pain Respiratoy: Productive Cough. negative: Short of Breath, Wheezing, Hemoptysis Cardiovascular: No Symptoms Reported Gastrointestinal/Abdominal: No Symptoms Reported Genitourinary: No Symptoms Reported Neurological: Headache Musculoskeletal: Muscle Pain Integumentary: No Symptoms Reported Hematologic/Lymphatic: No Symptoms Reported Endocrine: No Symptoms Reported All Other Systems: Reviewed and Negative PE - Vital Signs Vitals: Temperature 98 F Pulse Rate 112 Respiratory Rate 18 Blood Pressure [Right Arm] 148/90 Blood Pressure [Left Arm] 146/92 Blood Pressure 135/79 O2 Sat by Pulse Oximetry 100 - General General Appearance: Alert - Head Head Exam: Normal Inspection - Eyes Eye exam: Normal Appearance - ENT ENT Exam: Normal External Ear Exam TM/Canal Exam: Bilateral Normal Nose Exam: Normal Nose Exam Mouth Exam: Normal Inspection Throat Exam: Normal Inspection, Tonsillar Erythema - Neck Neck Exam: Normal Inspection - Chest Chest Inspection: Symmetric Chest Wall Rise - Respiratory Respiratory Exam: Normal Lung Sounds Bilat Respiratory Exam: Bilateral Clear to Auscultation - Cardiovascular Cardiovascular Exam: Regular Rate, Normal Rhythm, Normal Heart Sounds - Abdominal Exam Abdominal Exam: Normal Bowel Sounds, Soft. negative: Tenderness - Extremeties Extremities Exam: Normal Inspection - Back Back Exam: Normal Inspection - Neurologic Neurological Exam: Alert, Oriented X3 - Psychiatric Psychiatric Exam: Normal Affect, Normal Mood - Skin Skin Exam: Normal Color MDM - Differential Diagnosis Differential Diagnosis: Influenza A, Influenza B, Streptococcal pharyngitis, Viral pharyngitis, Pneumonia, Sinsusitis, URI Course - Treatment Treatment: SEE ORDERS. IM TORADOL IN ED. - Reevaluation 1st: Improved (PAIN IMPROVING.) - Education/Counseling Education/Counseling: Patient, Education Educated On: Treatment, Diagnosis, Needs for Follow Up ROR - Labs Reviewed Laboratory Results Reviewed?: Yes Laboratory: Influenza Type A (PCR) Negative (NEGATIVE) 07/08/17 08:38 Influenza Type B (PCR) Positive (NEGATIVE) A 07/08/17 08:38 - Diagnosis Discharge Problem: Influenza, Bronchitis - Discharge Plan Condition: Stable Prescriptions: Acetaminophen with Codeine [Tylenol/Codeine #3 300-30 mg] 1 tab PO Q6H PRN #15 tab PRN Reason: Pain Benzonatate [TESSALON PERLES *] 200 mg PO TID PRN #30 cap PRN Reason: Cough Oseltamivir Phosphate [Tamiflu] 75 mg PO BID #10 cap - Follow ups/Referrals Follow ups/Referrals: Cornelius SANDOVAL [Primary Care Provider] - 3 days - Instructions Instructions: Influenza, Adult, [id number], Acute Bronchitis, [id number] Additional Instructions: RETURN TO ED ED IF WORSE. CONTINUE ZITHROMAX YOU HAVE AT HOME FROM DR. SANDOVAL.
[2017-07-08] MEDS ORDERED: TORADOL 60 MG VIAL IM ONE (09:04)
[2017-07-08] MEDS ORDERED: TORADOL 60 MG VIAL ONE (09:06)
== END 2017-07-08 09:58 | disposition home or self-care (01) ==
LOC: ER 08:34
DX: J11.1 Influenza due to unidentified influenza virus with other respiratory manifestations (principal); J40 Bronchitis, not specified as acute or chronic
CPT/HCPCS: 87502; 96372; 99282; J1885

== ENCOUNTER 2017-07-24 09:58 | Emergency (ER) | payer BC ==
[2017-07-24 10:05] VITALS: BP 140/90; BMI 41.5
[2017-07-24] MEDS ORDERED: ASPIRIN PO ONE (11:36)
[2017-07-24] MEDS ORDERED: LEVSIN/MAALOX/LIDOC VISC PO ONE (11:37)
[2017-07-24] MEDS ORDERED: LEVSIN/MAALOX/LIDOC VISC ONE (11:40)
[2017-07-24] MEDS ORDERED: ASPIRIN ONE (11:40)
--- NOTE | 2017-07-24 11:42 | DR.CP ---
HPI - Time Seen Time seen: 11:36 - PCP Primary Care Physician: LORI - Complaint Chief Complaint Doctor Comments: Patient is complaining of epigastric and xiphoid chest pain for the past 11 hours getting worst today. States she is having epigastric pain with the pain being 9 of 10. States she has not had any aspirins but had a prevacid earlier today. Patient told nurse onset of pain after eating rice. States she is a patient of Dr. Gonzales. she denies alcohol or tobacco usage. She denies dysuria or hematuria or diarrhea. Chief Complaint:: CHEST PAIN BABY, HURTS REALLY BAD SHARP PAIN FROM THROAT TO EPIGASTRIC Self Treatment fo Chief Complaint: ACID REFLUX PILL FROM PHARMACY - Reviewed Nurses Notes Review: Yes - Source History Provided: Patient - Mode of Arrival Mode of Arrival: Ambulatory - Timing Onset of Chief Complaint: 07/23/17 Came on: Gradually Pain: Present Now - Duration Duration: Intermittent How lon Duration: Hours - Location Location of Chest Pain: Chest Chest Pain Radiation Location: None - Context Onset: At rest Cardiac Risk Factors: HTN, Diabetes PE Risk Factors: None History of: Similar pain in the past. denies: None, VA, Angina, Angioplasty, Cardiomyopathy, Aortic Disease, Valve Disease, DVT/PE, Viagra (or similar) use, Aspirin in last 24 hours, Other Prehospital Care: None - Quality Quality: Sharp. denies: Stabbing, Squeezing, Pressure like, Heavy, Crushing, Burning, Aching, Pleuritic, Other - Severity Severity: Mild - Modifying Factors Worsens: Nothing, Exertion, Coughing, Movement Impoves: Nothing - Associated Signs and Symptoms Associated Signs and Symptoms: Abdominal Pain PMH - PMH Past Medical History: Yes Past Medical History: Anxiety, Diabetes, Hypertension Past Surgical History: Yes Surgical History: Cholecystectomy - Family History History of Family Medical Conditions: Yes Family Medical History: Diabetes Mellitus, Hypertension - Social History Does patient currently use any type of tobacco product: No Have you used tobacco products in the last 12 months: No Type of Tobacco Use: None Does any household member use tobacco: No Alcohol Use: None Do you use any recreational Drugs:: No Lives With: Family Lives Where: Home - infectious screening In the last 2 months have you had wt loss of >10#?: NO Have you had fever, night sweats or hemotysis?: No Have you traveled outside the country in the last 6 months?: No Isolation: Standard ROS - Review of Systems Constitutional: No Symptoms Reported Eyes: No Symptoms Reported ENTM: No Symptoms Reported Respiratoy: No Symptoms Reported Cardiovascular: No Symptoms Reported, Chest Pain Gastrointestinal/Abdominal: Abdominal Pain Genitourinary: No Symptoms Reported, See HPI. negative: Discharge, Dysuria, Frequency, Hematuria, Pain, Bleeding, Other Neurological: No Symptoms Reported Musculoskeletal: No Symptoms Reported Integumentary: No Symptoms Reported Hematologic/Lymphatic: No Symptoms Reported Endocrine: No Symptoms Reported. negative: See HPI, Excessive Sweating, Flushing, Intolerance to Cold, Intolerance to Heat, Increased Hunger, Increased Thirst, Increased Urine, Unexplained Weight Gain, Unexplained Weight Loss, Failure to Thrive, Decreased Appetite, Other Psychiatric: No Symptoms Reported PE - Vitals Vitals: Temperature 97.8 F Pulse Rate 109 Respiratory Rate 22 Blood Pressure [Right Arm] 148/90 Blood Pressure [Left Arm] 146/92 Blood Pressure 140/90 O2 Sat by Pulse Oximetry 100 - General Limitations: No Limitations General Appearance: Alert, In Distress (slight), Obese - Head Head Exam: Normal Inspection, Atraumatic, Normocephalic - Eyes Eye exam: Normal Appearance, PERRL, EOMI. negative: Scleral Icterus, Conjunctival Injection, Nystagmus, Miosis, Mydrasis, Periorbital Swelling, Periorbital Tenderness, Other - ENT ENT Exam: Normal Exam, Normal Oropharynx, Normal External Ear Exam, Mucous Membranes Moist, TM's Normal Bilaterally - Chest Chest Inspection: Normal Inspection, Symmetric Chest Wall Rise - Respiratory Respiratory Exam: Normal Lung Sounds Bilat Respiratory Exam: Bilateral Clear to Auscultation - Cardiovascular Cardiovascular Exam: Regular Rate, Normal Rhythm, Normal Heart Sounds Pulse: Normal Edema: Normal - Abdominal Exam Abdominal Exam: Normal Inspection, Normal Bowel Sounds, Soft, Tenderness ( epigastric tenderness), Guarding, Dimnished Bowel Sounds Abdominal Tenderness: LUQ, Epigastrium, Moderate - Extremities Extremities Exam: Normal Inspection, Full ROM, Normal Capillary Refill. negative: Tenderness, Edema, Joint Swelling, Calf Tenderness, Other - Back Back Exam: Normal Inspection, Full ROM. negative: Tenderness, (R) CVA Tenderness, (L) CVA Tenderness, Muscle Spasm, Paraspinal Tenderness, Vertebral Tenderness, Rashes, (R) Sciatic Notch Tenderness, (L) Sciatic Notch Tendern, (R ) Straight Leg Raise, (L) Straight Leg Raise, Other - Neurologic Neurological Exam: Alert, Oriented X3, CN II-XII Intact, Reflexes Normal (gait not tested). negative: Normal Gait - Psychiatric Psychiatric Exam: Normal Affect, Normal Mood - Skin Skin Exam: Warm, Dry, Intact, Normal Color ROR - Labs Reviewed Laboratory Results Reviewed?: Yes (all labs and xx-ray results reviewed and discussed with patient) Result Diagrams: 07/24/17 11:45 07/24/17 11:45 Laboratory: WBC 5.2 X10^3/uL (3.6-10.0) 07/24/17 11:45 RBC 4.82 X10^6/uL (3.5-5.4) 07/24/17 11:45 Hgb 13.1 g/dL (12.0-16.0) 07/24/17 11:45 Hct 38.8 % (36.0-47.0) 07/24/17 11:45 MCV 80.5 fL (80.0-100.0) 07/24/17 11:45 MCH 27.1 pg (27.0-34.0) 07/24/17 11:45 MCHC 33.7 g/dL (33.0-35.0) 07/24/17 11:45 RDW 15.0 % (11.6-16.5) 07/24/17 11:45 Plt Count 317 X10^3/uL (150.0-450.0) 07/24/17 11:45 MPV 9.1 fL (7.4-11.0) 07/24/17 11:45 Neut % 45.7 % (42.0-75.0) 07/24/17 11:45 Lymph % 40.2 % (21.0-51.0) 07/24/17 11:45 Bradley % 7.9 % (0.0-13.0) 07/24/17 11:45 Eos % 3.1 % (0.9-2.9) H 07/24/17 11:45 Baso % 3.1 % (0.2-1.0) H 07/24/17 11:45 Neut # 2.4 x10^3/uL (2.2-4.8) 07/24/17 11:45 Lymph # 2.1 X10^3/uL (1.3-2.9) 07/24/17 11:45 Bradley # 0.4 x10^3/uL (0.3-0.8) 07/24/17 11:45 Eos # 0.2 x10^3/uL (0.0-0.2) 07/24/17 11:45 Baso # 0.2 X10^3/uL (0.0-0.1) H 07/24/17 11:45 Absolute Nucleated RBC 0.1 /100WBC 07/24/17 11:45 INR Target Range - 07/24/17 11:45 INR 1.04 (0.8-1.3) 07/24/17 11:45 PTT 24.7 SECONDS (22.9-36.5) 07/24/17 11:45 PTT Comment - 07/24/17 11:45 D-Dimer < 100 ng/mL (0-400) 07/24/17 11:45 Sodium 138 mmol/L (136-145) 07/24/17 11:45 Corrected Sodium 140 mmol/L (136-145) 07/24/17 11:45 Potassium 3.3 mmol/L (3.5-5.1) L 07/24/17 11:45 Chloride 101 mmol/L (98-107) 07/24/17 11:45 Carbon Dioxide 28.7 mmol/L (21-32) 07/24/17 11:45 BUN 5 mg/dL (7-18) L 07/24/17 11:45 Creatinine 0.94 mg/dL (0.55-1.02) 07/24/17 11:45 Est GFR (MDRD) Af Amer > 60 (>60) 07/24/17 11:45 Est GFR (MDRD) Non-Af > 60 (>60) 07/24/17 11:45 Glucose 168 mg/dL (65-99) H 07/24/17 11:45 Calcium 9.2 mg/dL (8.5-10.1) 07/24/17 11:45 Corrected Calcium TNP 07/24/17 11:45 Magnesium 1.9 mg/dL (1.7-2.9) 07/24/17 11:45 Total Bilirubin 0.30 mg/dL (0.2-1.0) 07/24/17 11:45 AST 14 Units/L (15-37) L 07/24/17 11:45 ALT 28 Units/L (12-78) 07/24/17 11:45 Alkaline Phosphatase 82 Units/L (46-116) 07/24/17 11:45 Creatine Kinase 102 Units/L (26-192) 07/24/17 11:45 CK-MB (CK-2) < 1.0 ng/mL (0-4.0) 07/24/17 11:45 CK/CKMB % Calc 1.0 % (<4) 07/24/17 11:45 Troponin I < 0.02 ng/mL (0-1.5) 07/24/17 11:45 Total Protein 8.3 g/dL (6.4-8.2) H 07/24/17 11:45 Albumin 3.9 g/dL (3.4-5.0) 07/24/17 11:45 Globulin 4.4 g/dL (2.5-4.5) 07/24/17 11:45 Albumin/Globulin Ratio 0.9 Ratio (1.1-2.1) L 07/24/17 11:45 Amylase 75 Units/L (25-115) 07/24/17 11:45 Lipase 160 Units/L (73-393) 07/24/17 11:45 HCG, Qual Negative <10 mIU/mL 07/24/17 11:45 H. pylori IgG Antibody Positive (NEGATIVE) A 07/24/17 11:45 - XRAY XRAY Interpreted by: Radiologist (CXR: Normal PA chest) - EKG Rate: 108 Remington: Normal Rhythm: ST Block: None Hypertrophy: None ST: Nonsp - Diagnosis Discharge Problem: Helicobacter positive gastritis, Hypokalemia, Chest pain Diabetes mellitus Qualifiers: Diabetes mellitus type: type 2 - Discharge Plan Disposition: 01 HOME, SELF-CARE Condition: Stable Prescriptions: Lansoprazole/Amoxiciln/Clarith [PrevPac 14-day pack] 1 dose PO BID #1 pkg - Follow ups/Referrals Follow ups/Referrals: Cornelius SANDOVAL [Primary Care Provider] - 3 days - Instructions Instructions: Helicobacter Pylori Antibodies Test, Duodenitis, Hypokalemia, Potassium Content of Foods
[2017-07-24 12:01] LABS: BASOPHILS # (AUTO) 0.2 X10^3/uL (0.0-0.1); BASOPHILS % (AUTO) 3.1 % (0.2-1.0); EOSINOPHILS # (AUTO) 0.2 x10^3/uL (0.0-0.2); EOSINOPHILS % (AUTO) 3.1 % (0.9-2.9); HEMATOCRIT 38.8 % (36.0-47.0); HEMOGLOBIN 13.1 g/dL (12.0-16.0); LYMPHOCYTES # (AUTO) 2.1 X10^3/uL (1.3-2.9); LYMPHOCYTES % (AUTO) 40.2 % (21.0-51.0); MEAN CORPUSCULAR HEMOGLOBIN 27.1 pg (27.0-34.0); MEAN CORPUSCULAR HGB CONC 33.7 g/dL (33.0-35.0); MEAN CORPUSCULAR VOLUME 80.5 fL (80.0-100.0); MEAN PLATELET VOLUME 9.1 fL (7.4-11.0); MONOCYTES # (AUTO) 0.4 x10^3/uL (0.3-0.8); MONOCYTES % (AUTO) 7.9 % (0.0-13.0); NEUTROPHILS # (AUTO) 2.4 x10^3/uL (2.2-4.8); NEUTROPHILS % (AUTO) 45.7 % (42.0-75.0); PLATELET COUNT 317 X10^3/uL (150.0-450.0); RED BLOOD COUNT 4.82 X10^6/uL (3.5-5.4); WHITE BLOOD COUNT 5.2 X10^3/uL (3.6-10.0)
[2017-07-24 12:21] LABS: SERUM PREGNANCY TEST, QUAL NEGATIVE <10 mIU/mL
[2017-07-24 12:37] LABS: BLOOD UREA NITROGEN 5 mg/dL (7-18); CALCIUM 9.2 mg/dL (8.5-10.1); CARBON DIOXIDE 28.7 mmol/L (21-32); CHLORIDE 101 mmol/L (98-107); COR NA(FOR HYPERGLY) 140 mmol/L (136-145); CREATININE 0.94 mg/dL (0.55-1.02); SODIUM 138 mmol/L (136-145); TROPONIN I < 0.02 ng/mL (0-1.5); eGFR BLACK RACES > 60 (>60); eGFR NON BLACK RACES > 60 (>60)
[2017-07-24 12:41] LABS: ALANINE AMINOTRANSFERASE 28 Units/L (12-78); ALBUMIN 3.9 g/dL (3.4-5.0); ALKALINE PHOSPHATASE 82 Units/L (46-116); AMYLASE 75 Units/L (25-115); ASPARTATE AMINO TRANSFERASE 14 Units/L (15-37); CREATINE KINASE 102 Units/L (26-192); CREATINE KINASE MB < 1.0 ng/mL (0-4.0); LIPASE 160 Units/L (73-393); MAGNESIUM 1.9 mg/dL (1.7-2.9); TOTAL PROTEIN 8.3 g/dL (6.4-8.2)
--- NOTE | 2017-07-24 12:47 | RAD ---
Examination: Abdomen with PA chest History: Chest pain Findings: PA chest demonstrates normal heart, lungs, pleural spaces. Supine and erect views of abdome n indicate mild gaseous distention of the proximal transverse colon. There are surgical clips in the right upper quadrant. There is no evidence for pneumatosis, intestinal perforation, ascites or pathol ogic calcification. Impression: Normal PA chest. Postsurgical findings right abdomen. Mild nonobstructive ileus. Reported By:
== END 2017-07-24 13:53 | disposition home or self-care (01) ==
LOC: ER 10:10
DX: R07.89 Other chest pain (principal); E87.6 Hypokalemia; B96.81 Helicobacter pylori [H. pylori] as the cause of diseases classified elsewhere
CPT/HCPCS: 36415; 74022; 80053; 82150; 82550; 82553; 83690; 83735; 84484; 84703; 85025; 85378; 85610; 85730; 86677; 93005; 93010; 99282; 99283

== ENCOUNTER 2017-08-06 10:47 | Emergency (ER) | payer BC ==
[2017-08-06 10:54] VITALS: BP 130/86
[2017-08-06 11:01] VITALS: BMI 37.0
--- NOTE | 2017-08-06 14:03 | DR.EXTPAIN ---
HPI - Time seen Time seen: 14:00 - PCP Primary Care Physician: LORI - Complaint/Symptoms Chief Complaint Doctor Comments: Patient states that she sha right arm and upper back pain upon awakening this morning. She denies trauma. She also admits to neck pain. Chief Complaint:: NECK AND UPPER BACK PAIN THAT RADIATES TO THE RIGHT ARM. STATES WOKE UP THIS WAY. NO INJURY NOTED Self Treatment fo Chief Complaint: TYLENOL AT 04:45 WITHOUT RELIEF. ALSO WARM COMPRESS - Source History Provided: Patient - Mode of arrival Mode of Arrival: Ambulatory - Timing Onset of Chief Complaint: 08/06/17 PMH - PMH Past Medical History: Yes Past Medical History: Diabetes, GERD, PUD, Seizures, Ventricular Tachycardia Past Surgical History: Yes Surgical History: Cholecystectomy - Family History History of Family Medical Conditions: Yes Family Medical History: Diabetes Mellitus, Hypertension - Social History Does patient currently use any type of tobacco product: No Have you used tobacco products in the last 12 months: No Type of Tobacco Use: None Alcohol Use: None Do you use any recreational Drugs:: No Lives Where: Home - infectious screening In the last 2 months have you had wt loss of >10#?: NO Have you had fever, night sweats or hemotysis?: No Have you traveled outside the country in the last 6 months?: No Isolation: Standard ROS - Review of Systems Eyes: No Symptoms Reported ENTM: No Symptoms Reported Respiratoy: No Symptoms Reported Cardiovascular: No Symptoms Reported Gastrointestinal/Abdominal: No Symptoms Reported Genitourinary: No Symptoms Reported Neurological: No Symptoms Reported Musculoskeletal: No Symptoms Reported Integumentary: No Symptoms Reported Hematologic/Lymphatic: No Symptoms Reported Endocrine: No Symptoms Reported Psychiatric: No Symptoms Reported All Other Systems: Reviewed and Negative PE - Vital Signs Vitals: Temperature 98 F Pulse Rate [Right Radial] 112 Pulse Rate 112 Respiratory Rate 18 Blood Pressure [Right Arm] 130/86 Blood Pressure [Left Arm] 146/92 Blood Pressure 130/86 O2 Sat by Pulse Oximetry 100 - General Limitations: No Limitations General Appearance: Alert, In No Apparent Distress - Head Head Exam: Normal Inspection, Atraumatic - Eyes Eye exam: Normal Appearance, PERRL, EOMI - ENT ENT Exam: Normal Exam - Neck Neck Exam: Normal Inspection, Full ROM - Chest Chest Inspection: Normal Inspection - Respiratory Respiratory Exam: Normal Lung Sounds Bilat Respiratory Exam: Bilateral Clear to Auscultation - Cardiovascular Cardiovascular Exam: Regular Rate, Normal Rhythm - Abdominal Exam Abdominal Exam: Normal Inspection Abdominal Tenderness: negative: RUQ, RLQ, LUQ, LLQ, Epigastrium, Suprapubic, Diffuse, Mild, Moderate, Severe, Other - Extremities Extremities Exam: Normal Inspection, Full ROM - Upper Extremities Shoulder Exam: Normal Inspection, Full ROM Arm Exam: Normal Inspection, Full ROM Elbow Exam: Normal Inspection Forearm Exam: Normal Inspection Hand Exam: Normal Inspection Neuromotor Exam: Normal Exam Neurosensory Exam: Normal Exam Upper Ext. Vascular Exam: Capillary Refill - Back Back Exam: Normal Inspection, Full ROM - Neurological Neurological Exam: Alert, Oriented X3, CN II-XII Intact - Psychiatric Psychiatric Exam: Normal Affect - Skin Skin Exam: Warm, Dry, Intact Type of Lesion: Rash Description: Size Course - Reevaluation 1st: Unchanged ROR - XRAY XRAY Interpreted by: Radiologist (Cervical Spine: There is mild reversal of the cervical lordosis which could be postional or related to muscle spasm. There is preservation of vertebral body height. No acute fracture or subluxation is seen. No destructive osseous lesions are identiried. There is no prevertebral soft tissue swelling. The atlantoaxial junction is ijntact. The lungs apices are clear. Impression:Mild reversal of the cervical lordosis which could be positional or realate to muscle spasm and with an otherwise unremarkable appearance of the cervical spine.) - Diagnosis Discharge Problem: Muscle spasm - Discharge Plan Condition: Stable - Follow ups/Referrals Follow ups/Referrals: Cornelius SANDOVAL [Primary Care Provider] - 3 days - Instructions
[2017-08-06] MEDS ORDERED: TORADOL 60 MG VIAL IM ONE (14:06)
[2017-08-06] MEDS ORDERED: TORADOL 60 MG VIAL ONE (14:08)
--- NOTE | 2017-08-06 14:45 | RAD ---
HISTORY: Neck pain Study: Three views cervical spine Comparison: July 17, 2015 Findings: There is mild reversal of the cervical lordosis which could be positional or related to muscle spasm. There is preservation of vertebral body height. No acute fracture or subluxation is seen. No destruc tive osseous lesions are identified. There is no prevertebral soft tissue swelling. The atlantoaxial junction is intact. The lung apices are clear. IMPRESSION: Mild reversal of the cervical lordosis which could be positional or related to muscle spasm and with an otherwise unremarkable appearance of the cervical spine. Reported By:
== END 2017-08-06 15:05 | disposition home or self-care (01) ==
LOC: ER 11:06
DX: M62.838 Other muscle spasm (principal)
CPT/HCPCS: 72040; 96372; 99282; J1885

== ENCOUNTER 2020-06-09 08:01 | Inpatient (IN) ==
[2020-06-09 08:14] VITALS: BMI 41.0
--- NOTE | 2020-06-09 08:47 | DR.NAUSEAF ---
HPI Time Seen Time Seen by Provider: 06/09/20 08:36 Primary Care Physician Primary Care Physician: DAMON HPI Comment HPI Comment: PATIENT IS 39YR OLD FEMALE IN ER WITH COUGH, CONGESTION, CHEST PAIN AND INCREASING SOB TIMES ONE WEAK. STARTED WITH NAUSEA AND VOMITING SINCE YESTERDAY. SHE IS WEAK AND TIRED. Complaints Chief Complaint Doctors Comments: COUGH, CONGESTION, CHEST PAIN, SOB AND VOMITING. STARTED ONE WEEK AGO BUT NAUSEA AND VOMITNG STARTED YESTERDAY. Chief Complaint:: PT C/O COUGHING, CHEST HURTING, AND VOMITING. PT STATES SHE HAS BEEN COUGHING FOR APPROX 1 WEEK. PT STATES IT IS ONLY GETTING WORSE. PT STATES SHE IS HAVING CHEST PAIN WHEN TAKING A DEEP BREATH AND COUGHING. PT ALSO STATES THE NAUSEA AND VOMITING STARTED YESTERDAY EVENING. COVID-19 Coronavirus risk:travel/contact w/high risk person: Yes Has patient experienced Coronavirus symptoms: Yes Coronavirus symptoms experienced: Coughing and Shortness of Breath Reviewed Nurses Notes Reviewed: Yes Source History Provided: Patient Mode of Arrival Mode of Arrival: Ambulatory Timing Onset of Chief Complaint: 06/02/20 Context Onset: Spontaneous Recent: None : No History of: Diabetes Quality Quality: Food Particles Associated Signs and Symptoms Abdominal Pain Quality: Sharp Abdominal Pain Location: Diffuse Symptoms: Abdominal Pain PMH PMH Past Medical History: Yes Past Medical History: Diabetes and Hypertension Past Surgical History: Yes Surgical History: Cholecystectomy Family History History of Family Medical Conditions: Yes Family Medical History: Diabetes Mellitus and Hypertension Social History Does any household member use tobacco: No Alcohol Use: None Do you use any recreational Drugs:: No Lives With: Family Lives Where: Home Travel Risk Coronavirus risk:travel/contact w/high risk person: Yes Has patient experienced Coronavirus symptoms: Yes Coronavirus symptoms experienced: Coughing and Shortness of Breath Infectious screening In the last 2 months have you had wt loss of >10#?: NO Have you had fever, night sweats or hemotysis?: No Have you traveled outside the country in the last 6 months?: No Isolation: Droplet ROS Review of Systems Constitutional: See HPI, Weakness and Fatigue; negative Fever Eyes: No Symptoms Reported and See HPI ENTM: See HPI, Nose Discharge and Nose Congestion Respiratoy: See HPI, Productive Cough and Short of Breath; negative Wheezing Cardiovascular: See HPI, Chest Pain and Palpitations Gastrointestinal/Abdominal: No Symptoms Reported, See HPI, Abdominal Pain, Nausea and Vomiting Genitourinary: No Symptoms Reported and See HPI; negative Dysuria and Hematuria Neurological: See HPI, Headache and Weakness Musculoskeletal: See HPI, Back Pain and Muscle Pain Integumentary: No Symptoms Reported and See HPI; negative Change in Color, Rash and Juandice Hematologic/Lymphatic: No Symptoms Reported; negative Easy Bruising and Swollen Glands Endocrine: No Symptoms Reported and See HPI; negative Increased Thirst and Increased Urine Psychiatric: No Symptoms Reported and See HPI All Other Systems: Reviewed and Negative PE Vital Signs Vitals: Temperature 97.6 F Pulse Rate 119 Respiratory Rate 26 Blood Pressure [Right Arm] 156/97 Blood Pressure 139/77 O2 Sat by Pulse Oximetry 97 General Limitations: No Limitations General Appearance: Alert and In No Apparent Distress Head Head Exam: Normal Inspection and Atraumatic Eyes Eye exam: Normal Appearance and PERRL; negative Scleral Icterus and Conjunctival Injection ENT ENT Exam: Normal External Ear Exam; negative Normal Oropharynx and TM's Normal Bilaterally Neck Neck Exam: Normal Inspection and Trachea Midline; negative Tenderness and Lymphadenopathy Chest Chest Inspection: Normal Inspection and Symmetric Chest Wall Rise; negative Tenderness Respiratory Respiratory Exam: Normal Lung Sounds Bilat; negative Accessory Muscle Use, Chest Wall Tenderness and Respiratory Distress Respiratory Exam: Bilateral: Rhonchi and Lower: Rhonchi Cardiovascular Cardiovascular Exam: Normal Rhythm, Tachycardia and Normal Heart Sounds; negative Systolic Murmur and Diastolic Murmur Abdominal Exam Abdominal Exam: Normal Bowel Sounds, Soft and Tenderness Abdominal Tenderness: Diffuse and Moderate Rectal Rectal Exam: Deferred External Exam: Female: Deferred : Speculum Exam (Female): Deferred : Bimanual Exam (female): Deferred Extremities Extremities Exam: Normal Inspection and Normal Capillary Refill; negative Tenderness, Edema and Calf Tenderness Back Back Exam: (R) Sciatic Notch Tenderness; negative (R) CVA Tenderness and (L) CVA Tenderness Neurologic Neurological Exam: Alert, Oriented X3 and CN II-XII Intact; negative Motor Sensory Deficit Psychiatric Psychiatric Exam: Normal Affect and Normal Mood Skin Skin Exam: Dry MDM Additional Information Obtained Additional Information Obtained From: Old Records Differential Diagnosis Differential Diagnosis: Considerations may Include:: Bowel Obstruction, Diabetes/DKA, Gastroenteritis, Pancreatitis, Urinary Tract Infection and Urolithiasis Differential Diagnosis Comment: PNEUMONIA, BRONCHITIS, ME, CHEST PAIN COURSE Treatment Treatment: SEE ORDERS. NS 1L IV BOLUS, TORADOL 30MG IV, TESSALON PEERLES PO AND LEVAQUIN 750MG IVPB. Consultation Consultation Comments: PATIENT DISCUSSED WITH DR. JOSE AND HE WILL ADMIT PATIENT. Education/Counseling Education/Counseling: Patient Educated On: Diagnosis ROR Labs Reviewed Laboratory Results Reviewed?: Yes Result Diagrams: 06/10/20 04:10 06/10/20 04:10 Laboratory: 06/09/20 08:30 Blood Blood Culture - Final 06/09/20 08:24 Blood Blood Culture - Final 06/09/20 11:10 Urine,Clean Catch Urine Culture - Final WBC 31.1 X10^3/uL (3.6-10.0) H* 06/09/20 09:01 RBC 4.52 X10^6/uL (3.5-5.4) 06/09/20 09:01 Hgb 12.0 g/dL (12.0-16.0) 06/09/20 09:01 Hct 37.2 % (36.0-47.0) 06/09/20 09:01 MCV 82.3 fL (80.0-100.0) 06/09/20 09:01 MCH 26.6 pg (27.0-34.0) L 06/09/20 09:01 MCHC 32.3 g/dL (33.0-35.0) L 06/09/20 09:01 RDW 14.7 % (11.6-16.5) 06/09/20 09:01 Plt Count 376 X10^3/uL (150.0-450.0) 06/09/20 09:01 Plt Count Comment Adequate (ADEQUATE) 06/09/20 09:01 MPV 8.7 fL (7.4-11.0) 06/09/20 09:01 Neut % (Auto) 92.4 % (42.0-75.0) H 06/09/20 09:01 Lymph % (Auto) 4.4 % (21.0-51.0) L 06/09/20 09:01 [place] % (Auto) 2.0 % (0.0-13.0) 06/09/20 09:01 Eos % (Auto) 0.8 % (0.9-2.9) L 06/09/20 09:01 Baso % (Auto) 0.4 % (0.2-1.0) 06/09/20 09:01 Neut # (Auto) 28.8 x10^3/uL (2.2-4.8) H 06/09/20 09:01 Lymph # (Auto) 1.4 X10^3/uL (1.3-2.9) 06/09/20 09:01 [place] # (Auto) 0.6 x10^3/uL (0.3-0.8) 06/09/20 09:01 Eos # (Auto) 0.2 x10^3/uL (0.0-0.2) 06/09/20 09:01 Baso # (Auto) 0.1 X10^3/uL (0.0-0.1) 06/09/20 09:01 Absolute Nucleated RBC 0.0 /100WBC 06/09/20 09:01 Total Counted 100 06/09/20 09:01 Neutrophils % (Manual) 89 % (39-76) H 06/09/20 09:01 Band Neutrophils % 3 % (0-10) 06/09/20 09:01 Lymphocytes % (Manual) 3 % (13-43) L 06/09/20 09:01 Monocytes % (Manual) 4 % (4-9) 06/09/20 09:01 Metamyelocytes % 1 06/09/20 09:01 Plt Morphology Comment Normal (NORMAL) 06/09/20 09:01 RBC Morphology Normal (NORMAL) 06/09/20 09:01 Sample Site Left brachial 06/09/20 08:52 ABG pH 7.420 (7.35-7.45) 06/09/20 08:52 ABG pCO2 36.0 mmHg (35.0-45.0) 06/09/20 08:52 ABG pO2 61.0 mmHg (80.0-100.0) L 06/09/20 08:52 ABG HCO3 23.4 mmol/L (22-26) 06/09/20 08:52 ABG O2 Saturation 91.0 % (90-100) 06/09/20 08:52 ABG Base Excess -0.7 mmol/L (-2.0-2.0) 06/09/20 08:52 Alvarez Test Na 06/09/20 08:52 A-a Gradient 44.0 mmHg 06/09/20 08:52 FiO2 21.0 06/09/20 08:52 Blood Gas Comments Randy well aw 06/09/20 08:52 Sodium 135 mmol/L (136-145) L 06/09/20 09:01 Corrected Sodium 140 mmol/L (136-145) 06/09/20 09:01 Potassium 3.7 mmol/L (3.5-5.1) 06/09/20 09:01 Chloride 97 mmol/L (98-107) L 06/09/20 09:01 Carbon Dioxide 22.4 mmol/L (21-32) 06/09/20 09:01 BUN 5 mg/dL (7-18) L 06/09/20 09:01 Creatinine 1.08 mg/dL (0.55-1.02) H 06/09/20 09:01 Est GFR (MDRD) Af Amer > 60 (>60) 06/09/20 09:01 Est GFR (MDRD) Non-Af > 60 (>60) 06/09/20 09:01 Glucose 289 mg/dL (65-99) H 06/09/20 09:01 Lactic Acid 5.3 mmol/L (0.4-2.0) H 06/09/20 09:01 Calcium 9.4 mg/dL (8.5-10.1) 06/09/20 09:01 Corrected Calcium TNP 06/09/20 09:01 Ferritin 31 ng/mL (8-252) 06/09/20 09:01 Total Bilirubin 0.40 mg/dL (0.2-1.0) 06/09/20 09:01 AST 15 Units/L (15-37) 06/09/20 09:01 ALT 22 Units/L (12-78) 06/09/20 09:01 Alkaline Phosphatase 64 Units/L (46-116) 06/09/20 09:01 Creatine Kinase 120 Units/L (26-192) 06/09/20 09:01 Creatine Kinase Cancelled 06/09/20 09:01 CK-MB (CK-2) < 1.0 ng/mL (0-4.0) 06/09/20 09:01 CK-MB (CK-2) Cancelled 06/09/20 09:01 CK/CKMB % Calc 0.8 % (<4) 06/09/20 09:01 CK/CKMB % Calc Cancelled 06/09/20 09:01 Troponin I < 0.02 ng/mL (0-1.5) 06/09/20 09:01 Troponin I Cancelled 06/09/20 09:01 C-Reactive Protein 40.60 mg/L (0-3.0) H 06/09/20 09:01 B-Natriuretic Peptide 13.6 pg/mL (0-79) 06/09/20 09:01 Total Protein 8.3 g/dL (6.4-8.2) H 06/09/20 09:01 Albumin 3.9 g/dL (3.4-5.0) 06/09/20 09:01 Globulin 4.4 g/dL (2.5-4.5) 06/09/20 09:01 Albumin/Globulin Ratio 0.9 Ratio (1.1-2.1) L 06/09/20 09:01 Amylase 60 Units/L (25-115) 06/09/20 09:01 Lipase 126 Units/L (73-393) 06/09/20 09:01 Specimen Type Clean catch urine 06/09/20 11:10 Urine Color Brown (YELLOW) 06/09/20 11:10 Urine Appearance Hazy (CLEAR) 06/09/20 11:10 Urine pH 6.0 (5.0 - 8.0) 06/09/20 11:10 Ur Specific [place] 1.015 (1.000-1.030) 06/09/20 11:10 Urine Protein 3+ (NEGATIVE) 06/09/20 11:10 Urine Glucose (UA) 3+ (NEGATIVE) 06/09/20 11:10 Urine Ketones 1+ (NEGATIVE) 06/09/20 11:10 Urine Occult Blood 5+ (NEGATIVE) 06/09/20 11:10 Urine Nitrite Negative (NEGATIVE) 06/09/20 11:10 Urine Bilirubin Negative (NEGATIVE) 06/09/20 11:10 Urine Urobilinogen Normal (NORMAL) 06/09/20 11:10 Ur Leukocyte Esterase 1+ (NEGATIVE) 06/09/20 11:10 Urine RBC Tntc /HPF (0-3) A 06/09/20 11:10 Urine WBC 5-10 /HPF (0-5) A 06/09/20 11:10 Ur Squamous Epith Cells Many /HPF (NEGATIVE) 06/09/20 11:10 Amorphous Sediment 1+ /HPF (NEGATIVE) 06/09/20 11:10 Urine Bacteria Trace /HPF (NEGATIVE) 06/09/20 11:10 Urine Mucus Few /HPF (NEGATIVE) 06/09/20 11:10 Ur Culture Indicated? Yes/culture set up 06/09/20 11:10 Influenza Type A (PCR) Negative (NEGATIVE) 06/09/20 09:17 Influenza Type B (PCR) Negative (NEGATIVE) 06/09/20 09:17 SARS CoV-2 RNA Rapid MARIANN Negative (NEGATIVE) 06/09/20 08:33 S. pyogenes (TEM-PCR) Not detected (NOT DETECT) 06/09/20 09:17 XRAY XRAY Interpreted by: Radiologist (REPORT NOTED AND DISCUSSED WITH PATIENT.) and Self EKG Rate: 128 [place]: Normal Rhythm: ST Block: None Hypertrophy: None ST: Old, Inf and Nonsp Opioid Opioid Risk Tool Age (Chip box if 16-45): No History of Preadolescent Sexual Abuse: No Total: 0 Total Score Risk Category: Low Risk Copyright: Rea predicting aberrant behaviors Diagnosis Discharge Problem: Bronchitis, Hypoxia, Acute hyperglycemia Sepsis Qualifiers: Sepsis type: sepsis due to unspecified organism Sepsis acute organ dysfunction status: unspecified Qualified Code(s): A41.9 - Sepsis, unspecified organism Instructions Instructions: Hyperglycemia, Rmvr-ji-Lram Hypoxia Sepsis, Adult Type 2 Diabetes Mellitus, Self Care, Adult, Xgii-lq-Orlt Urinary Tract Infection, Adult, Ezwd-rj-Aduj Acute Bronchitis, Adult, Xmgt-ss-Puzx Hypertension, Negh-sy-Ywnh Forms: Precautions for COVID19 Patient Portal Social Distancing
[2020-06-09 08:58] LABS: ABG BASE EXCESS -0.7 mmol/L (-2.0-2.0); ABG HCO3 23.4 mmol/L (22-26)
--- NOTE | 2020-06-09 09:08 | RAD ---
HISTORYCOUGHING, COVID SYMPTOMSSTUDYCHEST, 1 [id number] cardiomediastinal silhouette. No consolidation, overt pulmonary edema, sizable effusion, or visible pneumothorax. No acute osseous finding.IMPRESSIONStable nonacute chest exam.Electronically signed by: Davian Montgomery (Jun 09, 2020 09:07:24)
[2020-06-09 09:16] LABS: BASOPHILS # (AUTO) 0.1 X10^3/uL (0.0-0.1); BASOPHILS % (AUTO) 0.4 % (0.2-1.0); EOSINOPHILS # (AUTO) 0.2 x10^3/uL (0.0-0.2); EOSINOPHILS % (AUTO) 0.8 % (0.9-2.9); HEMATOCRIT 37.2 % (36.0-47.0); LYMPHOCYTES # (AUTO) 1.4 X10^3/uL (1.3-2.9); LYMPHOCYTES % (AUTO) 4.4 % (21.0-51.0); MEAN CORPUSCULAR HEMOGLOBIN 26.6 pg (27.0-34.0); MEAN CORPUSCULAR HGB CONC 32.3 g/dL (33.0-35.0); MEAN CORPUSCULAR VOLUME 82.3 fL (80.0-100.0); MEAN PLATELET VOLUME 8.7 fL (7.4-11.0); MONOCYTES # (AUTO) 0.6 x10^3/uL (0.3-0.8); NEUTROPHILS # (AUTO) 28.8 x10^3/uL (2.2-4.8); NEUTROPHILS % (AUTO) 92.4 % (42.0-75.0); PLATELET COUNT 376 X10^3/uL (150.0-450.0); RED BLOOD COUNT 4.52 X10^6/uL (3.5-5.4); RED CELL DISTRIBUTION WIDTH 14.7 % (11.6-16.5)
[2020-06-09] MEDS ORDERED: TORADOL 30 MG VIAL IVP ONE (09:18)
[2020-06-09] MEDS ORDERED: NS 1000 ML 1,000 ML IV ONE (09:18)
[2020-06-09] MEDS ORDERED: TESSALON PERLES PO ONE ×2 (09:22→09:41)
[2020-06-09 09:27] LABS: WHITE BLOOD COUNT 31.1 X10^3/uL (3.6-10.0)
[2020-06-09 09:30] LABS: LACTIC ACID 5.3 mmol/L (0.4-2.0)
[2020-06-09 09:32] LABS: BAND NEUTROPHILS % 3 % (0-10); METAMYELOCYTES % 1; PLATELET MORPHOLOGY COMMENT NORMAL (NORMAL)
[2020-06-09 09:33] LABS: BLOOD UREA NITROGEN 5 mg/dL (7-18); CALCIUM 9.4 mg/dL (8.5-10.1); CARBON DIOXIDE 22.4 mmol/L (21-32); CHLORIDE 97 mmol/L (98-107); COR NA(FOR HYPERGLY) 140 mmol/L (136-145); CREATININE 1.08 mg/dL (0.55-1.02); SODIUM 135 mmol/L (136-145); TROPONIN I < 0.02 ng/mL (0-1.5); eGFR NON BLACK RACES > 60 (>60)
[2020-06-09] MEDS ORDERED: TORADOL 30 MG VIAL ONE (09:40)
[2020-06-09 09:41] LABS: ALANINE AMINOTRANSFERASE 22 Units/L (12-78); ALBUMIN 3.9 g/dL (3.4-5.0); ALKALINE PHOSPHATASE 64 Units/L (46-116); ASPARTATE AMINO TRANSFERASE 15 Units/L (15-37); CKMB % 0.8 % (<4); CREATINE KINASE 120 Units/L (26-192); CREATINE KINASE MB < 1.0 ng/mL (0-4.0); TOTAL PROTEIN 8.3 g/dL (6.4-8.2)
[2020-06-09] MEDS ORDERED: NS 1000 ML 1,000 ML ONE (09:41)
[2020-06-09 10:13] LABS: STREP A BY PCR NOT DETECTED (NOT DETECT)
[2020-06-09] MEDS ORDERED: LEVAQUIN PREMIX IV 750 MG 750 MG/150 ML BAG IV ONE ×2 (10:50→11:27)
[2020-06-09 11:29] LABS: BILIRUBIN,URINE NEGATIVE (NEGATIVE); BLOOD/HEMOGLOBIN,URINE 5+ (NEGATIVE); GLUCOSE, URINE 3+ (NEGATIVE); KETONES,URINE 1+ (NEGATIVE); LEUKOCYTE ESTERASE ,URINE 1+ (NEGATIVE); NITRITES,URINE NEGATIVE (NEGATIVE); PROTEIN,URINE 3+ (NEGATIVE); UROBILINOGEN,URINE NORMAL (NORMAL)
[2020-06-09 11:39] LABS: APPEARANCE,URINE HAZY (CLEAR); COLOR,URINE BROWN (YELLOW)
[2020-06-09 11:40] LABS: AMORPHOUS SEDIMENT,UR 1+ /HPF (NEGATIVE); BACTERIA,URINE TRACE /HPF (NEGATIVE); MUCUS,URINE FEW /HPF (NEGATIVE); RBC,URINE TNTC /HPF (0-3); SQUAMOUS EPITHELIAL CELL,UR MANY /HPF (NEGATIVE)
[2020-06-09] MEDS ORDERED: NORCO 10/325 TAB PO PRN (14:49)
[2020-06-09] MEDS ORDERED: VENTOLIN or PROAIR HFA IN PRN (14:49)
[2020-06-09] MEDS ORDERED: ROCEPHIN VIAL 1 GRAM 1 G in NS 100 ML IV + SPIKE MINIBAG* 100 ML IV SCH (14:53)
[2020-06-09] MEDS ORDERED: XANAX PO PRN (15:03)
[2020-06-09] MEDS: VANCOMYCIN IV *PREMIX 1 G/200 ML BAG 1 G/200 ML PIGGYBACK IV SCH ×2 (16:52→20:51)
[2020-06-09] MEDS: HumuLIN R SC PRN ×2 (16:52→20:50)
[2020-06-09] MEDS: ZOSYN VIAL 3.375 GRAMS 3.375 G in NS 100 ML IV + SPIKE MINIBAG* 100 ML IV SCH ×2 (17:03→21:36)
[2020-06-09] MEDS: NS 1000 ML 1,000 ML IV SCH (17:04)
[2020-06-09] MEDS: PROVENTIL NEB TX 0.083% 2.5MG/ 3ML NEB SCH (18:00)
[2020-06-09] MEDS: PEPCID TAB 20 MG PO SCH (20:40)
[2020-06-09] MEDS: NORMODYNE TAB 100 MG PO SCH (20:40)
[2020-06-09] MEDS: NEURONTIN CAP 300 MG PO SCH (20:40)
--- NOTE | 2020-06-09 22:23 | DR.H&P ---
H&P History & Physical for Day of: H&P Date: 06/09/20 Chief Complaint Chief Complaint: Cough Dysuria Allergies Allergies Allergy/AdvReac Type Severity Reaction Status Date / Time cheese Allergy Verified 04/22/20 14:10 History of Present Illness History of Present Illness: Pt is a 39 year old female with past medical history of HTN, DMT2, presenting with cough, congestion, and dysuria for the past week. She reports symptoms were gradually worsening. In the ED, labs/imaging: Wbc 31, Hgb 12, Plt 376, Na 135, K 3.7, Cr 1.08, Glucose 289, AB.42/36/61/23/91%, CRP 40, UA:+leuks, +wbc, Urine culture pending, Blood culture pending, CXR negative. Will treat patient with marked leukocytosis, likely source of infection urinary, cystitis. Pt was started on IVF and antibiotics Vancomycin and Zosyn. Continue to monitor and follow up labs/imaging in the morning. Past Medical History Past Medical History: Diabetes and Hypertension Past Surgical History Surgical History: Cholecystectomy Family History Family Medical History: Diabetes Mellitus and Hypertension Social History Type of Tobacco Use: None Does any household member use tobacco: No Alcohol Use: None Drug Use: None Medications Home Medications: cheese Allergy (Verified 04/22/20 14:10) CONTINUE taking the following medications cinnamon bark [Cinnamon] 1,000 mg PO DAILY 06/09/20 [History] diphenhydramine HCl 25 mg PO Q6H PRN 06/09/20 [History] labetalol 100 mg PO BID 06/09/20 [History] promethazine 25 mg PO Q6H PRN 06/09/20 [History] Labs Result Diagrams: 06/10/20 04:10 06/10/20 04:10 Labs: Laboratory WBC 31.1 X10^3/uL (3.6-10.0) H* 06/09/20 09:01 RBC 4.52 X10^6/uL (3.5-5.4) 06/09/20 09:01 Hgb 12.0 g/dL (12.0-16.0) 06/09/20 09:01 Hct 37.2 % (36.0-47.0) 06/09/20 09:01 MCV 82.3 fL (80.0-100.0) 12/27/20 09:01 MCH 26.6 pg (27.0-34.0) L 06/09/20 09:01 MCHC 32.3 g/dL (33.0-35.0) L 06/09/20 09:01 RDW 14.7 % (11.6-16.5) 06/09/20 09:01 Plt Count 376 X10^3/uL (150.0-450.0) 06/09/20 09:01 Plt Count Comment Adequate (ADEQUATE) 06/09/20 09:01 MPV 8.7 fL (7.4-11.0) 06/09/20 09:01 Neut % (Auto) 92.4 % (42.0-75.0) H 06/09/20 09:01 Lymph % (Auto) 4.4 % (21.0-51.0) L 06/09/20 09:01 [place] % (Auto) 2.0 % (0.0-13.0) 06/09/20 09:01 Eos % (Auto) 0.8 % (0.9-2.9) L 06/09/20 09:01 Baso % (Auto) 0.4 % (0.2-1.0) 06/09/20 09:01 Neut # (Auto) 28.8 x10^3/uL (2.2-4.8) H 06/09/20 09:01 Lymph # (Auto) 1.4 X10^3/uL (1.3-2.9) 06/09/20 09:01 [place] # (Auto) 0.6 x10^3/uL (0.3-0.8) 06/09/20 09:01 Eos # (Auto) 0.2 x10^3/uL (0.0-0.2) 06/09/20 09:01 Baso # (Auto) 0.1 X10^3/uL (0.0-0.1) 06/09/20 09:01 Absolute Nucleated RBC 0.0 /100WBC 06/09/20 09:01 Total Counted 100 06/09/20 09:01 Neutrophils % (Manual) 89 % (39-76) H 06/09/20 09:01 Band Neutrophils % 3 % (0-10) 12/27/20 09:01 Lymphocytes % (Manual) 3 % (13-43) L 06/09/20 09:01 Monocytes % (Manual) 4 % (4-9) 06/09/20 09:01 Metamyelocytes % 1 06/09/20 09:01 Plt Morphology Comment Normal (NORMAL) 06/09/20 09:01 RBC Morphology Normal (NORMAL) 06/09/20 09:01 Sample Site Left brachial 06/09/20 08:52 ABG pH 7.420 (7.35-7.45) 06/09/20 08:52 ABG pCO2 36.0 mmHg (35.0-45.0) 06/09/20 08:52 ABG pO2 61.0 mmHg (80.0-100.0) L 06/09/20 08:52 ABG HCO3 23.4 mmol/L (22-26) 06/09/20 08:52 ABG O2 Saturation 91.0 % (90-100) 06/09/20 08:52 ABG Base Excess -0.7 mmol/L (-2.0-2.0) 06/09/20 08:52 Alvarez Test Na 06/09/20 08:52 A-a Gradient 44.0 mmHg 06/09/20 08:52 FiO2 21.0 06/09/20 08:52 Blood Gas Comments Randy well aw 06/09/20 08:52 Sodium 135 mmol/L (136-145) L 06/09/20 09:01 Corrected Sodium 140 mmol/L (136-145) 06/09/20 09:01 Potassium 3.7 mmol/L (3.5-5.1) 06/09/20 09:01 Chloride 97 mmol/L (98-107) L 06/09/20 09:01 Carbon Dioxide 22.4 mmol/L (21-32) 06/09/20 09:01 BUN 5 mg/dL (7-18) L 06/09/20 09:01 Creatinine 1.08 mg/dL (0.55-1.02) H 06/09/20 09:01 Est GFR (MDRD) Af Amer > 60 (>60) 06/09/20 09:01 Est GFR (MDRD) Non-Af > 60 (>60) 06/09/20 09:01 Glucose 289 mg/dL (65-99) H 06/09/20 09:01 POC Glucose (mg/dL) 212 mg/dL (65-99) H 06/09/20 20:22 Lactic Acid 5.3 mmol/L (0.4-2.0) H 06/09/20 09:01 Calcium 9.4 mg/dL (8.5-10.1) 06/09/20 09:01 Corrected Calcium TNP 06/09/20 09:01 Ferritin 31 ng/mL (8-252) 06/09/20 09:01 Total Bilirubin 0.40 mg/dL (0.2-1.0) 06/09/20 09:01 AST 15 Units/L (15-37) 06/09/20 09:01 ALT 22 Units/L (12-78) 06/09/20 09:01 Alkaline Phosphatase 64 Units/L (46-116) 06/09/20 09:01 Creatine Kinase 120 Units/L (26-192) 06/09/20 09:01 Creatine Kinase Cancelled 06/09/20 09:01 CK-MB (CK-2) < 1.0 ng/mL (0-4.0) 06/09/20 09:01 CK-MB (CK-2) Cancelled 06/09/20 09:01 CK/CKMB % Calc 0.8 % (<4) 06/09/20 09:01 CK/CKMB % Calc Cancelled 06/09/20 09:01 Troponin I < 0.02 ng/mL (0-1.5) 06/09/20 09:01 Troponin I Cancelled 06/09/20 09:01 C-Reactive Protein 40.60 mg/L (0-3.0) H 06/09/20 09:01 B-Natriuretic Peptide 13.6 pg/mL (0-79) 06/09/20 09:01 Total Protein 8.3 g/dL (6.4-8.2) H 06/09/20 09:01 Albumin 3.9 g/dL (3.4-5.0) 06/09/20 09:01 Globulin 4.4 g/dL (2.5-4.5) 06/09/20 09:01 Albumin/Globulin Ratio 0.9 Ratio (1.1-2.1) L 06/09/20 09:01 Amylase 60 Units/L (25-115) 06/09/20 09:01 Lipase 126 Units/L (73-393) 06/09/20 09:01 Specimen Type Clean catch urine 06/09/20 11:10 Urine Color Brown (YELLOW) 06/09/20 11:10 Urine Appearance Hazy (CLEAR) 06/09/20 11:10 Urine pH 6.0 (5.0 - 8.0) 06/09/20 11:10 Ur Specific [place] 1.015 (1.000-1.030) 06/09/20 11:10 Urine Protein 3+ (NEGATIVE) 06/09/20 11:10 Urine Glucose (UA) 3+ (NEGATIVE) 06/09/20 11:10 Urine Ketones 1+ (NEGATIVE) 06/09/20 11:10 Urine Occult Blood 5+ (NEGATIVE) 06/09/20 11:10 Urine Nitrite Negative (NEGATIVE) 06/09/20 11:10 Urine Bilirubin Negative (NEGATIVE) 06/09/20 11:10 Urine Urobilinogen Normal (NORMAL) 06/09/20 11:10 Ur Leukocyte Esterase 1+ (NEGATIVE) 06/09/20 11:10 Urine RBC Tntc /HPF (0-3) A 06/09/20 11:10 Urine WBC 5-10 /HPF (0-5) A 06/09/20 11:10 Ur Squamous Epith Cells Many /HPF (NEGATIVE) 06/09/20 11:10 Amorphous Sediment 1+ /HPF (NEGATIVE) 06/09/20 11:10 Urine Bacteria Trace /HPF (NEGATIVE) 06/09/20 11:10 Urine Mucus Few /HPF (NEGATIVE) 06/09/20 11:10 Ur Culture Indicated? Yes/culture set up 06/09/20 11:10 Influenza Type A (PCR) Negative (NEGATIVE) 06/09/20 09:17 Influenza Type B (PCR) Negative (NEGATIVE) 06/09/20 09:17 SARS CoV-2 RNA Rapid MARIANN Negative (NEGATIVE) 06/09/20 08:33 S. pyogenes (TEM-PCR) Not detected (NOT DETECT) 06/09/20 09:17 Review of Systems Constitutional: Chills and Weakness Eyes: No Symptoms Reported ENT: No Symptoms Reported Respiratory: Cough and Shortness of Breath Cardiovascular: No Symptoms Reported Gastrointestinal: No Symptoms Reported Genitourinary: Dysuria Musculoskeletal: No Symptoms Reported Skin: No Symptoms Reported Neurological: No Symptoms Reported Physical Exam Vital Signs: Temperature 100.4 F Pulse Rate [Left Radial] 118 Pulse Rate 150 Respiratory Rate 21 Blood Pressure [Right Arm] 132/88 Blood Pressure 138/85 O2 Sat by Pulse Oximetry 96 Oriented: Normal Eyes: Normal Ear: Normal Nose: Normal Throat: Normal Respiratory: Clear Throughout Cardiovascular: Normal : Dysuria Auscultation: Bowel Sounds: Normal Palpation: Normal Tenderness: Normal Skin: Normal Musculoskeletal: Normal Psychiatric: Normal Mood Description: Calm and Appropriate Affect: Normal Speech Pattern: Clear and Appropriate Assessment/Plan (1) Acute cystitis: Status: Acute Plan: Continue Vancomycin and Zosyn Follow up cultures. Review H&P Reviewed: Yes Patient was examined?: Yes
[2020-06-09] MEDS ORDERED: ROBITUSSIN DM ONE (23:24)
[2020-06-09] MEDS: ROBITUSSIN DM PO PRN (23:27)
[2020-06-10] MEDS: PROVENTIL NEB TX 0.083% 2.5MG/ 3ML NEB SCH ×2 (00:05→06:00)
[2020-06-10] MEDS: NS 1000 ML 1,000 ML IV SCH ×2 (01:38→10:01)
[2020-06-10] MEDS ORDERED: ZOSYN VIAL 3.375 GRAMS IV ONE (05:13)
[2020-06-10] MEDS ORDERED: NS 100 ML IV + SPIKE MINIBAG* 100 ML IV ONE (05:14)
[2020-06-10] MEDS: ZOSYN VIAL 3.375 GRAMS 3.375 G in NS 100 ML IV + SPIKE MINIBAG* 100 ML IV SCH (05:30)
[2020-06-10] MEDS ORDERED: NORCO 10/325 TAB ONE (05:35)
[2020-06-10] MEDS ORDERED: ROBITUSSIN DM ONE (05:35)
[2020-06-10] MEDS ORDERED: HumuLIN R ONE (05:36)
[2020-06-10] MEDS: ROBITUSSIN DM PO PRN (05:42)
[2020-06-10] MEDS: HumuLIN R SC PRN (05:44)
[2020-06-10 06:10] LABS: BASOPHILS # (AUTO) 0.1 X10^3/uL (0.0-0.1); BASOPHILS % (AUTO) 0.5 % (0.2-1.0); EOSINOPHILS # (AUTO) 0.3 x10^3/uL (0.0-0.2); EOSINOPHILS % (AUTO) 1.4 % (0.9-2.9); HEMATOCRIT 33.7 % (36.0-47.0); HEMOGLOBIN 10.9 g/dL (12.0-16.0); LYMPHOCYTES # (AUTO) 2.2 X10^3/uL (1.3-2.9); LYMPHOCYTES % (AUTO) 11.2 % (21.0-51.0); MEAN CORPUSCULAR HGB CONC 32.3 g/dL (33.0-35.0); MEAN CORPUSCULAR VOLUME 83.4 fL (80.0-100.0); MEAN PLATELET VOLUME 9.3 fL (7.4-11.0); MONOCYTES # (AUTO) 0.4 x10^3/uL (0.3-0.8); MONOCYTES % (AUTO) 2.2 % (0.0-13.0); NEUTROPHILS # (AUTO) 16.6 x10^3/uL (2.2-4.8); NEUTROPHILS % (AUTO) 84.7 % (42.0-75.0); PLATELET COUNT 331 X10^3/uL (150.0-450.0); RED BLOOD COUNT 4.04 X10^6/uL (3.5-5.4); RED CELL DISTRIBUTION WIDTH 15.2 % (11.6-16.5); WHITE BLOOD COUNT 19.6 X10^3/uL (3.6-10.0)
[2020-06-10 06:33] LABS: ALANINE AMINOTRANSFERASE 18 Units/L (12-78); ALKALINE PHOSPHATASE 59 Units/L (46-116); ASPARTATE AMINO TRANSFERASE 12 Units/L (15-37); BLOOD UREA NITROGEN 6 mg/dL (7-18); CALCIUM 8.9 mg/dL (8.5-10.1); CARBON DIOXIDE 25.6 mmol/L (21-32); CHLORIDE 100 mmol/L (98-107); COR CA(FOR HYPOALB) 9.7 mg/dL (8.5-10.1); COR NA(FOR HYPERGLY) 142 mmol/L (136-145); CREATININE 0.94 mg/dL (0.55-1.02); SODIUM 139 mmol/L (136-145); TOTAL PROTEIN 7.1 g/dL (6.4-8.2); eGFR NON BLACK RACES > 60 (>60)
[2020-06-10] MEDS ORDERED: ZOFRAN INJ 4 MG VIAL ONE (08:46)
[2020-06-10] MEDS ORDERED: ZOFRAN INJ 4 MG VIAL IVP SCH (09:00)
[2020-06-10 09:01] VITALS: BP 144/81
[2020-06-10] MEDS ORDERED: PEPCID TAB 20 MG ONE (09:05)
[2020-06-10] MEDS ORDERED: VANCOMYCIN IV *PREMIX 1 G/200 ML BAG 1 G/200 ML PIGGYBACK IV ONE (09:06)
[2020-06-10] MEDS: NEURONTIN CAP 300 MG PO SCH (10:00)
[2020-06-10] MEDS: VANCOMYCIN IV *PREMIX 1 G/200 ML BAG 1 G/200 ML PIGGYBACK IV SCH (10:00)
[2020-06-10] MEDS: NORMODYNE TAB 100 MG PO SCH (10:01)
[2020-06-10] MEDS: PEPCID TAB 20 MG PO SCH (10:01)
--- NOTE | 2020-06-10 10:32 | W.DIS.FURT ---
Summary of Discharge Discharge Summary of Date Date of Exam: 06/10/20 Admission Date Date of Admission: 06/09/20 Admission Diagnosis Hospital Course: Pt is a 39 year old female with past medical history of HTN, DMT2, admitted for acute cystitis. She was initially treated with antibiotics, Vancomycin and Zosyn. She responded well to treatments. Her leukocytosis trending down. Labs/imaging: Wbc 31>19, Hgb 10.9, Plt 331, Na 139, K 3.6, Cr 0.94, Glucose 216, UA:+leuks, +wbc, Urine culture pending, CXR negative. Rx keflex x 7 days send to pharmacy. Pt was discharged in stable condition, instructed to follow up with pcp in 3-5 days. Vital Signs: Vital Signs (72 hours) 06/09/20 08:10 06/09/20 08:17 06/09/20 08:18 Temperature 97.6 F Pulse Rate 132 H 136 H 133 H Pulse Rate [Left Radial] Respiratory Rate 24 37 H 38 H Blood Pressure 170/104 185/94 Blood Pressure [Right Arm] O2 Sat by Pulse Oximetry 96 97 95 06/09/20 08:30 06/09/20 08:38 06/09/20 08:45 Temperature Pulse Rate 129 H 128 H 132 H Pulse Rate [Left Radial] Respiratory Rate 35 H 33 H 37 H Blood Pressure 151/83 Blood Pressure [Right Arm] O2 Sat by Pulse Oximetry 97 97 97 06/09/20 09:00 06/09/20 09:15 06/09/20 09:30 Temperature Pulse Rate 130 H 128 H 125 H Pulse Rate [Left Radial] Respiratory Rate 28 H 29 H 29 H Blood Pressure Blood Pressure [Right Arm] O2 Sat by Pulse Oximetry 06/09/20 09:45 06/09/20 10:00 06/09/20 10:14 Temperature Pulse Rate 126 H 124 H Pulse Rate [Left Radial] Respiratory Rate 34 H 24 20 Blood Pressure Blood Pressure [Right Arm] O2 Sat by Pulse Oximetry 06/09/20 10:15 06/09/20 10:30 06/09/20 10:44 Temperature Pulse Rate 121 H 116 H Pulse Rate [Left Radial] Respiratory Rate 27 H 23 20 Blood Pressure Blood Pressure [Right Arm] O2 Sat by Pulse Oximetry 06/09/20 10:45 06/09/20 11:00 06/09/20 11:20 Temperature Pulse Rate 115 H 120 H 119 H Pulse Rate [Left Radial] Respiratory Rate 23 26 H Blood Pressure 147/74 129/73 142/78 Blood Pressure [Right Arm] O2 Sat by Pulse Oximetry 98 98 98 06/09/20 11:30 06/09/20 11:45 06/09/20 12:00 Temperature Pulse Rate 122 H 122 H 119 H Pulse Rate [Left Radial] Respiratory Rate Blood Pressure 130/82 139/77 Blood Pressure [Right Arm] O2 Sat by Pulse Oximetry 99 99 97 06/09/20 12:15 06/09/20 12:30 06/09/20 16:00 Temperature 98.1 F Pulse Rate 117 H 117 H Pulse Rate [Left Radial] 112 H Respiratory Rate 22 Blood Pressure 138/85 Blood Pressure [Right Arm] 135/96 O2 Sat by Pulse Oximetry 98 98 97 06/09/20 18:00 06/09/20 20:00 06/10/20 00:00 Temperature 100.4 F H 99.0 F Pulse Rate 150 H Pulse Rate [Left Radial] 118 H 113 H Respiratory Rate 21 22 Blood Pressure Blood Pressure [Right Arm] 132/88 142/70 O2 Sat by Pulse Oximetry 96 96 97 06/10/20 04:00 06/10/20 05:42 06/10/20 08:00 Temperature 99.4 F 98.1 F Pulse Rate Pulse Rate [Left Radial] 119 H 109 H Respiratory Rate 20 24 20 Blood Pressure Blood Pressure [Right Arm] 141/71 144/81 O2 Sat by Pulse Oximetry 99 98 Labs: Laboratory Last Values WBC 19.6 X10^3/uL (3.6-10.0) H D 06/10/20 04:10 RBC 4.04 X10^6/uL (3.5-5.4) 06/10/20 04:10 Hgb 10.9 g/dL (12.0-16.0) L 06/10/20 04:10 Hct 33.7 % (36.0-47.0) L 06/10/20 04:10 MCV 83.4 fL (80.0-100.0) 06/10/20 04:10 MCH 27.0 pg (27.0-34.0) 06/10/20 04:10 MCHC 32.3 g/dL (33.0-35.0) L 06/10/20 04:10 RDW 15.2 % (11.6-16.5) 06/10/20 04:10 Plt Count 331 X10^3/uL (150.0-450.0) 06/10/20 04:10 Plt Count Comment Adequate (ADEQUATE) 06/09/20 09:01 MPV 9.3 fL (7.4-11.0) 06/10/20 04:10 Neut % (Auto) 84.7 % (42.0-75.0) H 06/10/20 04:10 Lymph % (Auto) 11.2 % (21.0-51.0) L 06/10/20 04:10 [place] % (Auto) 2.2 % (0.0-13.0) 06/10/20 04:10 Eos % (Auto) 1.4 % (0.9-2.9) 06/10/20 04:10 Baso % (Auto) 0.5 % (0.2-1.0) 06/10/20 04:10 Neut # (Auto) 16.6 x10^3/uL (2.2-4.8) H 06/10/20 04:10 Lymph # (Auto) 2.2 X10^3/uL (1.3-2.9) 06/10/20 04:10 [place] # (Auto) 0.4 x10^3/uL (0.3-0.8) 06/10/20 04:10 Eos # (Auto) 0.3 x10^3/uL (0.0-0.2) H 06/10/20 04:10 Baso # (Auto) 0.1 X10^3/uL (0.0-0.1) 06/10/20 04:10 Absolute Nucleated RBC 0.0 /100WBC 06/10/20 04:10 Total Counted 100 06/09/20 09:01 Neutrophils % (Manual) 89 % (39-76) H 06/09/20 09:01 Band Neutrophils % 3 % (0-10) 06/09/20 09:01 Lymphocytes % (Manual) 3 % (13-43) L 06/09/20 09:01 Monocytes % (Manual) 4 % (4-9) 06/09/20 09:01 Metamyelocytes % 1 06/09/20 09:01 Plt Morphology Comment Normal (NORMAL) 06/09/20 09:01 RBC Morphology Normal (NORMAL) 06/09/20 09:01 Sample Site Left brachial 06/09/20 08:52 ABG pH 7.420 (7.35-7.45) 06/09/20 08:52 ABG pCO2 36.0 mmHg (35.0-45.0) 06/09/20 08:52 ABG pO2 61.0 mmHg (80.0-100.0) L 06/09/20 08:52 ABG HCO3 23.4 mmol/L (22-26) 06/09/20 08:52 ABG O2 Saturation 91.0 % (90-100) 06/09/20 08:52 ABG Base Excess -0.7 mmol/L (-2.0-2.0) 06/09/20 08:52 Alvarez Test Na 06/09/20 08:52 A-a Gradient 44.0 mmHg 06/09/20 08:52 FiO2 21.0 06/09/20 08:52 Blood Gas Comments Randy well aw 06/09/20 08:52 Sodium 139 mmol/L (136-145) 06/10/20 04:10 Corrected Sodium 142 mmol/L (136-145) 06/10/20 04:10 Potassium 3.6 mmol/L (3.5-5.1) 06/10/20 04:10 Chloride 100 mmol/L (98-107) 06/10/20 04:10 Carbon Dioxide 25.6 mmol/L (21-32) 06/10/20 04:10 BUN 6 mg/dL (7-18) L 06/10/20 04:10 Creatinine 0.94 mg/dL (0.55-1.02) 06/10/20 04:10 Est GFR (MDRD) Af Amer > 60 (>60) 06/10/20 04:10 Est GFR (MDRD) Non-Af > 60 (>60) 06/10/20 04:10 Glucose 216 mg/dL (65-99) H 06/10/20 04:10 POC Glucose (mg/dL) 218 mg/dL (65-99) H 06/10/20 05:26 Lactic Acid 5.3 mmol/L (0.4-2.0) H 06/09/20 09:01 Calcium 8.9 mg/dL (8.5-10.1) 06/10/20 04:10 Corrected Calcium 9.7 mg/dL (8.5-10.1) 06/10/20 04:10 Ferritin 31 ng/mL (8-252) 06/09/20 09:01 Total Bilirubin 0.30 mg/dL (0.2-1.0) 06/10/20 04:10 AST 12 Units/L (15-37) L 06/10/20 04:10 ALT 18 Units/L (12-78) 06/10/20 04:10 Alkaline Phosphatase 59 Units/L (46-116) 06/10/20 04:10 Creatine Kinase 120 Units/L (26-192) 06/09/20 09:01 Creatine Kinase Cancelled 06/09/20 09:01 CK-MB (CK-2) < 1.0 ng/mL (0-4.0) 06/09/20 09:01 CK-MB (CK-2) Cancelled 06/09/20 09:01 CK/CKMB % Calc 0.8 % (<4) 06/09/20 09:01 CK/CKMB % Calc Cancelled 06/09/20 09:01 Troponin I < 0.02 ng/mL (0-1.5) 06/09/20 09:01 Troponin I Cancelled 06/09/20 09:01 C-Reactive Protein 40.60 mg/L (0-3.0) H 06/09/20 09:01 B-Natriuretic Peptide 13.6 pg/mL (0-79) 06/09/20 09:01 Total Protein 7.1 g/dL (6.4-8.2) 06/10/20 04:10 Albumin 3.0 g/dL (3.4-5.0) L 06/10/20 04:10 Globulin 4.1 g/dL (2.5-4.5) 06/10/20 04:10 Albumin/Globulin Ratio 0.7 Ratio (1.1-2.1) L 06/10/20 04:10 Amylase 60 Units/L (25-115) 06/09/20 09:01 Lipase 126 Units/L (73-393) 06/09/20 09:01 Specimen Type Clean catch urine 06/09/20 11:10 Urine Color Brown (YELLOW) 06/09/20 11:10 Urine Appearance Hazy (CLEAR) 06/09/20 11:10 Urine pH 6.0 (5.0 - 8.0) 06/09/20 11:10 Ur Specific [place] 1.015 (1.000-1.030) 06/09/20 11:10 Urine Protein 3+ (NEGATIVE) 06/09/20 11:10 Urine Glucose (UA) 3+ (NEGATIVE) 06/09/20 11:10 Urine Ketones 1+ (NEGATIVE) 06/09/20 11:10 Urine Occult Blood 5+ (NEGATIVE) 06/09/20 11:10 Urine Nitrite Negative (NEGATIVE) 06/09/20 11:10 Urine Bilirubin Negative (NEGATIVE) 06/09/20 11:10 Urine Urobilinogen Normal (NORMAL) 06/09/20 11:10 Ur Leukocyte Esterase 1+ (NEGATIVE) 06/09/20 11:10 Urine RBC Tntc /HPF (0-3) A 06/09/20 11:10 Urine WBC 5-10 /HPF (0-5) A 06/09/20 11:10 Ur Squamous Epith Cells Many /HPF (NEGATIVE) 06/09/20 11:10 Amorphous Sediment 1+ /HPF (NEGATIVE) 06/09/20 11:10 Urine Bacteria Trace /HPF (NEGATIVE) 06/09/20 11:10 Urine Mucus Few /HPF (NEGATIVE) 06/09/20 11:10 Ur Culture Indicated? Yes/culture set up 06/09/20 11:10 Influenza Type A (PCR) Negative (NEGATIVE) 06/09/20 09:17 Influenza Type B (PCR) Negative (NEGATIVE) 06/09/20 09:17 SARS CoV-2 RNA Rapid MARIANN Negative (NEGATIVE) 06/09/20 08:33 S. pyogenes (TEM-PCR) Not detected (NOT DETECT) 06/09/20 09:17 Reason For Visit: SEPSIS,BRONCHITIS,HYPOXIA,HYPERGLYCEMIA Discharge Date Discharge Date: 06/10/20 Discharge Diagnosis All Active Problems (Updated 06/10/20 @ 10:20 by Cameron John) Acute cystitis (Acute) Toothache (Acute) Gingivitis (Acute) Abdominal pain (Acute) Diabetes mellitus type 2, uncomplicated (Acute) GERD (gastroesophageal reflux disease) (Chronic) History of anemia (Chronic) Arthritis (Chronic) UTI (urinary tract infection) (Acute) Allergic reaction (Acute) Swelling of knee joint, left (Acute) Knee pain, left (Acute) Tachycardia (Acute) Flank pain (Acute) Fall due to wet surface (Acute) Knee pain (Acute) Contusion of left knee (Acute) Muscle spasm (Acute) Menorrhagia with irregular cycle (Acute) Otitis externa (Acute) Otitis media (Acute) Vitiligo (Acute) Tinea versicolor (Acute) Right flank pain (Acute) Ovarian cyst (Acute) Acute cystitis (Acute) Acute UTI (urinary tract infection) (Acute) Ovarian cyst (Acute) Viral syndrome (Acute) Bronchitis (Acute) Sinusitis (Acute) Gingivitis (Acute) Pain, dental (Acute) Knee pain (Acute) Neuropathic pain (Acute) Muscle strain (Acute) Edema (Acute) Abdominal pain (Acute) Back pain (Acute) Trichomoniasis (Acute) Head ache (Acute) Chest pain (Acute) Hypoglycemia (Acute) Light headedness (Acute) Episode of syncope (Acute) Influenza (Acute) Helicobacter positive gastritis (Acute) Diabetes mellitus (Acute) Hypokalemia (Acute) UTI (urinary tract infection) (Acute) Chest pain (Acute) Migraine (Acute) Pharyngitis (Acute) Localized osteoarthritis of left knee (Acute) Hyperglycemia due to type 2 diabetes mellitus (Acute) Chest pain in adult (Acute) Essential hypertension (Acute) Lower extremity pain (Acute) Musculoskeletal pain (Acute) Dizzinesses (Acute) Allergic sinusitis (Acute) Shortness of breath (Acute) Headache (Acute) Acute seasonal allergic rhinitis (Acute) Allergic reaction (Acute) Sinusitis (Acute) URI (upper respiratory infection) (Acute) Headache (Acute) Hyperglycemia (Acute) Acute dehydration (Acute) Arm pain, right (Acute) Hyperglycemia, drug-induced (Acute) Plan of Treatment: Continue with present treatment and follow up plan. Pt is to keep follow up appointment as instructed and take medications as ordered. Discharge Medications Discharge Medications: cheese Allergy (Verified 04/22/20 14:10) CONTINUE taking the following medications cinnamon bark [Cinnamon] 1,000 mg PO DAILY 06/09/20 [History] diphenhydramine HCl 25 mg PO Q6H PRN 06/09/20 [History] labetalol 100 mg PO BID 06/09/20 [History] promethazine 25 mg PO Q6H PRN 06/09/20 [History] New Prescriptions cephalexin [Keflex] 500 mg PO BID 7 Days #14 cap 06/10/20 [Rx] Discharge Disposition Discharge Disposition: Home Discharge Condition: Stable Discharge Plan Discharge Plan Hospital Course: Pt is a 39 year old female with past medical history of HTN, DMT2, admitted for acute cystitis. She was initially treated with antibiotics, Vancomycin and Zosyn. She responded well to treatments. Her leukocytosis trending down. Labs/imaging: Wbc 31>19, Hgb 10.9, Plt 331, Na 139, K 3.6, Cr 0.94, Glucose 216, UA:+leuks, +wbc, Urine culture pending, CXR negative. Rx keflex x 7 days send to pharmacy. Pt was discharged in stable condition, instructed to follow up with pcp in 3-5 days. Patient Disposition: 01 HOME, SELF-CARE Condition: Stable Health Concerns: Post Hospitalization: new medications and changes needed to prevent readmission or further decline. Pt educated and given instructions on all concerns. Care Plan Goals: Problem: Infection Goal: Temperature within normal limits. Resolved infection. Instructions: Follow provided instructions. Follow up with primary physician as directed. Contact primary care physician or report to the closest Emergency Room if condition worsens. Plan of Treatment: Continue with present treatment and follow up plan. Pt is to keep follow up appointment as instructed and take medications as ordered. Prescriptions: New cephalexin [Keflex] 500 mg capsule 500 mg PO BID 7 Days Qty: 14 RF: 0 benzonatate [Tessalon Perles] 100 mg Capsule 100 mg PO TID PRN (Reason: Cough) Qty: 21 RF: 0 Continued albuterol sulfate 90 mcg/actuation HFA aerosol inhaler 2 puff IN Q6H PRN (Reason: shortness of breath or wheezing) Qty: 8.5 RF: 0 hydrocodone-acetaminophen 10-325 mg tablet 1 tab PO BID PRNRF: 0 alprazolam 0.5 mg tablet 0.5 mg PO BID PRN (Reason: Anxiety) RF: 0 famotidine 20 mg tablet 20 mg PO BID PRNRF: 0 metformin 1,000 mg tablet 1,000 mg PO BID RF: 0 glimepiride 4 mg tablet 4 mg PO BID RF: 0 gabapentin 300 mg capsule 300 mg PO BID RF: 0 furosemide 20 mg tablet 20 mg PO DAILY PRNRF: 0 cinnamon bark [Cinnamon] 500 mg Capsule 1,000 mg PO DAILY RF: 0 diphenhydramine HCl 25 mg Capsule 25 mg PO Q6H PRNRF: 0 promethazine 25 mg tablet 25 mg PO Q6H PRN (Reason: Nausea) RF: 0 labetalol 100 mg Tablet 100 mg PO BID RF: 0 Follow ups/Referrals Follow ups/Referrals: Cameron John [Primary Care Provider] - 06/18/20 3:00 pm Instructions Instructions: Hyperglycemia, [id number], Hypoxia, Sepsis, Adult, Type 2 Diabetes Mellitus, Self Care, Adult, [id number], Urinary Tract Infection, Adult, [id number], Acute Bronchitis, Adult, [id number], Hypertension, E asy-to-Read Activity Restrictions/Additional Instructions: Tomás sent to pharmacy Stand Alone Forms: Precautions for COVID19, Patient Portal, Social Distancing
== END 2020-06-10 11:31 | disposition home or self-care (01) | DRG 690 ==
LOC: ER 08:09 → OBS 12:13
PROVIDERS: ADMIT Family Medicine; ATTEND Family Medicine
DX: I10 Essential (primary) hypertension; R06.02 Shortness of breath; Z20.828 Contact with and (suspected) exposure to other viral communicable diseases; R94.4 Abnormal results of kidney function studies; E11.65 Type 2 diabetes mellitus with hyperglycemia; R79.82 Elevated C-reactive protein (CRP); N30.00 Acute cystitis without hematuria; R79.89 Other specified abnormal findings of blood chemistry; R07.89 Other chest pain

== ENCOUNTER 2021-06-26 14:01 | Observation (INO) ==
--- NOTE | 2021-06-26 14:38 | RAD ---
HISTORYCOUGH Relevant Clinical InformationSTUDYCHEST, PA/LAT ADULTCOMPARISONFI ONE-VIEW CHEST JUNE 24, 2021 NDINGSThe trachea is midline. The cardiac silhouette is unremarkable. The lungs are hypoinflated with the diaphragm at the 7th interspace. Bibasilar linear densities have developed which are probably atelectasis however early pneumonia could not be excluded. Clear without focal infiltrate or effusion. The bony thorax is unremarkable.IMPRESSIONLow lung volumes with new bibasilar linear densities probably atelectasis due to the low lung volumes but early pneumonia cannot be excluded. Recommend radiographic follow-up with attempt at better inspiration on follow-up.Electronically signed by: JASWANT QUINTANILLA (Jun 26, 2021 14:36:45)
[2021-06-26 15:14] LABS: BASOPHILS # (AUTO) 0.1 X10^3/uL (0.0-0.1); BASOPHILS % (AUTO) 0.8 % (0.2-1.0); HEMATOCRIT 43.9 % (36.0-47.0); LYMPHOCYTES # (AUTO) 0.8 X10^3/uL (1.3-2.9); LYMPHOCYTES % (AUTO) 10.4 % (21.0-51.0); MEAN CORPUSCULAR HEMOGLOBIN 27.6 pg (27.0-34.0); MEAN CORPUSCULAR HGB CONC 34.1 g/dL (33.0-35.0); MEAN CORPUSCULAR VOLUME 81.1 fL (80.0-100.0); MEAN PLATELET VOLUME 9.2 fL (7.4-11.0); MONOCYTES # (AUTO) 0.4 x10^3/uL (0.3-0.8); MONOCYTES % (AUTO) 4.8 % (0.0-13.0); NEUTROPHILS # (AUTO) 6.2 x10^3/uL (2.2-4.8); PLATELET COUNT 224 X10^3/uL (150.0-450.0); RED BLOOD COUNT 5.41 X10^6/uL (3.5-5.4); WHITE BLOOD COUNT 7.4 X10^3/uL (3.6-10.0)
[2021-06-26 15:28] LABS: ALANINE AMINOTRANSFERASE 24 Units/L (12-78); ALBUMIN 3.4 g/dL (3.4-5.0); ALKALINE PHOSPHATASE 88 Units/L (46-116); ASPARTATE AMINO TRANSFERASE 18 Units/L (15-37); BLOOD UREA NITROGEN 11 mg/dL (7-18); CALCIUM 9.5 mg/dL (8.5-10.1); CARBON DIOXIDE 20.9 mmol/L (21-32); CHLORIDE 91 mmol/L (98-107); COR NA(FOR HYPERGLY) 139 mmol/L (136-145); CREATININE 1.19 mg/dL (0.55-1.02); SODIUM 129 mmol/L (136-145); TOTAL PROTEIN 9.2 g/dL (6.4-8.2); eGFR NON BLACK RACES 53 (>60)
[2021-06-26] MEDS ORDERED: NS 1,000 ML IV 1,000 ML IV ONE (15:37)
[2021-06-26] MEDS ORDERED: ACTEMRA 400 MG in NS 100 ML IV 80 ML IV ONE (15:44)
[2021-06-26] MEDS ORDERED: REMDESIVIR 200 MG in NS 100 ML IV 140 ML IV NR (15:50)
[2021-06-26 16:25] VITALS: BMI 37.4
[2021-06-26 16:50] LABS: ABG ALLEN TEST POS; ABG BASE EXCESS -2.2 mmol/L (-2.0-2.0); ABG HCO3 20.6 mmol/L (22-26)
[2021-06-26] MEDS: LOVENOX INJ 30 MG SYR SC SCH ×2 (17:43→20:01)
[2021-06-26] MEDS: NS 1,000 ML IV 1,000 ML IV SCH ×2 (17:44→18:57)
[2021-06-26] MEDS: TUSSIONEX PENNKINETIC SUSP PO PRN (17:52)
[2021-06-26] MEDS: NovoLIN R (or HumuLIN R) SC PRN ×2 (18:09→20:35)
[2021-06-26] MEDS ORDERED: MORPHINE SULFATE INJ 2 MG INJ ONE (19:37)
[2021-06-26] MEDS ORDERED: PEPCID TAB 40 MG ONE (19:38)
[2021-06-26] MEDS ORDERED: ZINC SULFATE ONE (19:38)
[2021-06-26] MEDS: PEPCID TAB 40 MG PO SCH (19:59)
[2021-06-26] MEDS: ZINC SULFATE PO SCH (20:01)
[2021-06-26] MEDS: MORPHINE SULFATE INJ 2 MG INJ IVP PRN (20:02)
[2021-06-26] MEDS ORDERED: ZOFRAN INJ 4 MG VIAL ONE (20:13)
[2021-06-26] MEDS: ZOFRAN INJ 4 MG VIAL IVP PRN (20:19)
[2021-06-26] MEDS: PULMICORT NEB TX 0.5 MG NEB SCH (20:23)
[2021-06-26] MEDS: BROVANA IN SCH (20:23)
[2021-06-27] MEDS: MORPHINE SULFATE INJ 2 MG INJ IVP PRN ×2 (00:30→05:35)
[2021-06-27 05:12] LABS: BASOPHILS % (AUTO) 0.6 % (0.2-1.0); EOSINOPHILS % (AUTO) 0.2 % (0.9-2.9); HEMATOCRIT 36.5 % (36.0-47.0); HEMOGLOBIN 12.3 g/dL (12.0-16.0); LYMPHOCYTES % (AUTO) 32.1 % (21.0-51.0); MEAN CORPUSCULAR HEMOGLOBIN 26.9 pg (27.0-34.0); MEAN CORPUSCULAR HGB CONC 33.7 g/dL (33.0-35.0); MEAN CORPUSCULAR VOLUME 79.8 fL (80.0-100.0); MEAN PLATELET VOLUME 9.6 fL (7.4-11.0); MONOCYTES # (AUTO) 0.2 x10^3/uL (0.3-0.8); MONOCYTES % (AUTO) 5.9 % (0.0-13.0); NEUTROPHILS # (AUTO) 1.8 x10^3/uL (2.2-4.8); NEUTROPHILS % (AUTO) 61.2 % (42.0-75.0); PLATELET COUNT 199 X10^3/uL (150.0-450.0); RED BLOOD COUNT 4.57 X10^6/uL (3.5-5.4); RED CELL DISTRIBUTION WIDTH 13.9 % (11.6-16.5)
[2021-06-27 05:23] LABS: ALANINE AMINOTRANSFERASE 20 Units/L (12-78); ALBUMIN 2.6 g/dL (3.4-5.0); ALKALINE PHOSPHATASE 68 Units/L (46-116); ASPARTATE AMINO TRANSFERASE 31 Units/L (15-37); BLOOD UREA NITROGEN 6 mg/dL (7-18); CALCIUM 8.2 mg/dL (8.5-10.1); CARBON DIOXIDE 24.4 mmol/L (21-32); CHLORIDE 98 mmol/L (98-107); COR CA(FOR HYPOALB) 9.3 mg/dL (8.5-10.1); COR NA(FOR HYPERGLY) 137 mmol/L (136-145); CREATININE 0.82 mg/dL (0.55-1.02); SODIUM 132 mmol/L (136-145); TOTAL PROTEIN 7.4 g/dL (6.4-8.2); eGFR NON BLACK RACES > 60 (>60)
[2021-06-27] MEDS: NS 1,000 ML IV 1,000 ML IV SCH ×3 (05:35→20:48)
[2021-06-27] MEDS: TUSSIONEX PENNKINETIC SUSP PO PRN ×2 (05:36→16:01)
[2021-06-27] MEDS: NovoLIN R (or HumuLIN R) SC PRN ×3 (05:36→16:53)
[2021-06-27] MEDS: ZOFRAN INJ 4 MG VIAL IVP PRN (05:37)
[2021-06-27] MEDS ORDERED: KLOR-CON PO PRN (05:47)
[2021-06-27] MEDS ORDERED: POTASSIUM CHLORIDE LIQ 20 MEQ UDC PO PRN (05:47)
[2021-06-27] MEDS ORDERED: MAGNESIUM SULFATE 1 GRAM/100 mL PREMIX 1 G/100 ML BAG IV PRN (06:07)
[2021-06-27] MEDS ORDERED: K-DUR TAB 20 MEQ PO ONE (06:17)
[2021-06-27] MEDS: K-DUR TAB 20 MEQ PO PRN (06:21)
[2021-06-27] MEDS ORDERED: GLUCOPHAGE ONE ×2 (08:28→20:44)
[2021-06-27] MEDS: GLUCOPHAGE PO SCH ×2 (08:37→20:49)
[2021-06-27] MEDS: LOVENOX INJ 30 MG SYR SC SCH ×2 (08:38→20:50)
[2021-06-27] MEDS: AMARYL TAB 4 MG PO SCH ×2 (08:38→20:50)
[2021-06-27] MEDS: REMDESIVIR 100 MG in NS 100 ML IV + SPIKE MINIBAG* 120 ML IV SCH (08:39)
[2021-06-27] MEDS: NORMODYNE TAB 100 MG PO SCH ×2 (08:39→20:51)
[2021-06-27] MEDS: PEPCID TAB 40 MG PO SCH ×2 (08:39→20:52)
[2021-06-27] MEDS: VITAMIN C PO SCH (08:40)
[2021-06-27] MEDS: ZINC SULFATE PO SCH ×2 (08:40→20:52)
[2021-06-27] MEDS: XANAX PO PRN ×2 (08:41→20:52)
--- NOTE | 2021-06-27 08:45 | RAD ---
HISTORYCOVID PNEUMONIA FOLLOW UPSTUDYCHEST, 1 VIEWCOMPARISONJanuary 2021, June 26, 2021TECHNIQUEPortable chest radiographFINDINGSRe-demonstrated are bibasilar infiltrates consistent with pneumonia. The lungs are hypoinflated overall. There has been slight interval progression the overall density of infiltrates in the interim. Heart size and mediastinal contours are normal. The pleural spaces are clear. No free air or pneumothorax identified.IMPRESSIONBibasilar pulmonary infiltrates consistent with pneumoniaElectronically signed by: TANVIR BREWSTER (Jun 27, 2021 08:44:10)
[2021-06-27] MEDS ORDERED: LANTUS SC SCH (09:00)
[2021-06-27] MEDS: BROVANA IN SCH ×2 (09:08→20:11)
[2021-06-27] MEDS: PULMICORT NEB TX 0.5 MG NEB SCH ×2 (09:08→20:11)
[2021-06-27] MEDS: NORCO 10/325 TAB PO PRN ×2 (10:38→20:52)
--- NOTE | 2021-06-27 18:56 | DR.H&P ---
H&P History & Physical for Day of: H&P Date: 06/26/21 Chief Complaint Chief Complaint: Generalized weakness Hyperglycemia Shortness of breath Allergies Allergies Allergy/AdvReac Type Severity Reaction Status Date / Time cheese Allergy Verified 04/22/20 14:10 History of Present Illness History of Present Illness: Pt is a 40 year old female past medical history of Hypertension, DMT2, presenting with COVID-19 pneumonia, hypoxia, and dehydration. She received her positive test result and has been denied Regen-COV infusion twice due to being too ill. She was admitted for further workup and care as well as failing outpatient treatment. Labs/imaging: Wbc 7.4, Hgb 15, Plt 224, Na 139, K 4.3, Creatinine 1.19, Glucose 509, D-dimer <0.27, ABG: pH 7.46, pCO2 29, pO2 59, HCO3 20, O2sat 92% on RA. Pt was given 1L NS bolus and started on pneumonia protocol that includes: IVF NS@125ml/h, Remdesivir, scheduled Bronchodilators Xopenex and Budesonide, Famotidine 40mg BID, Tussionex prn, immune supporting supplements, supplemental O2, SSI, I/S, Lovenox 30mg BID, Phy sical therapy, Respiratory therapy consult. Ordered Actemra x 1 dose. Will hold at this time steroids due to significant hyperglycemia. Pt is currently requiring 2L supplemental oxygen. Titrate/wean as tolerated. Will restart home medications. Continue to monitor and follow up labs/imaging in the morning. Time spent on clinical assessment, reviewing labs and imaging, decision making, and documentation greater than 45 minutes. Past Medical History Past Medical History: Anemia, Diabetes and Hypertension Past Surgical History Surgical History: Cholecystectomy Family History Family Medical History: Diabetes Mellitus and Hypertension Social History Does patient currently use any type of tobacco product: No Have you used tobacco products in the last 12 months: No Type of Tobacco Use: None Does any household member use tobacco: Yes () Alcohol Use: None Drug Use: None Medications Home Medications: cheese Allergy (Verified 04/22/20 14:10) Labs Result Diagrams: 06/27/21 04:25 06/27/21 04:25 Labs: Laboratory WBC 3.0 X10^3/uL (3.6-10.0) L 06/27/21 04:25 RBC 4.57 X10^6/uL (3.5-5.4) 06/27/21 04:25 Hgb 12.3 g/dL (12.0-16.0) D 06/27/21 04:25 Hct 36.5 % (36.0-47.0) 06/27/21 04:25 MCV 79.8 fL (80.0-100.0) L 06/27/21 04:25 MCH 26.9 pg (27.0-34.0) L 06/27/21 04:25 MCHC 33.7 g/dL (33.0-35.0) 06/27/21 04:25 RDW 13.9 % (11.6-16.5) 06/27/21 04:25 Plt Count 199 X10^3/uL (150.0-450.0) 06/27/21 04:25 MPV 9.6 fL (7.4-11.0) 06/27/21 04:25 Neut % (Auto) 61.2 % (42.0-75.0) 06/27/21 04:25 Lymph % (Auto) 32.1 % (21.0-51.0) 06/27/21 04:25 [place] % (Auto) 5.9 % (0.0-13.0) 06/27/21 04:25 Eos % (Auto) 0.2 % (0.9-2.9) L 06/27/21 04:25 Baso % (Auto) 0.6 % (0.2-1.0) 06/27/21 04:25 Neut # (Auto) 1.8 x10^3/uL (2.2-4.8) L 06/27/21 04:25 Lymph # (Auto) 1.0 X10^3/uL (1.3-2.9) L 06/27/21 04:25 [place] # (Auto) 0.2 x10^3/uL (0.3-0.8) L 06/27/21 04:25 Eos # (Auto) 0.0 x10^3/uL (0.0-0.2) 06/27/21 04:25 Baso # (Auto) 0.0 X10^3/uL (0.0-0.1) 06/27/21 04:25 Absolute Nucleated RBC 0.1 /100WBC 06/27/21 04:25 D-Dimer < 0.27 ug/ml (0.0-0.57) 06/26/21 15:00 Sample Site Lra 06/26/21 16:48 ABG pH 7.460 (7.35-7.45) H 06/26/21 16:48 ABG pCO2 29.0 mmHg (35.0-45.0) L 06/26/21 16:48 ABG pO2 59.0 mmHg (80.0-100.0) L 06/26/21 16:48 ABG HCO3 20.6 mmol/L (22-26) L 06/26/21 16:48 ABG O2 Saturation 92.0 % (90-100) 06/26/21 16:48 ABG Base Excess -2.2 mmol/L (-2.0-2.0) L 06/26/21 16:48 Alvarez Test Pos 06/26/21 16:48 A-a Gradient 54.0 mmHg 06/26/21 16:48 FiO2 21.0 06/26/21 16:48 Blood Gas Comments Pt kel well eb,bee breeder 06/26/21 16:48 Sodium 132 mmol/L (136-145) L 06/27/21 04:25 Corrected Sodium 137 mmol/L (136-145) 06/27/21 04:25 Potassium 3.7 mmol/L (3.5-5.1) 06/27/21 04:25 Chloride 98 mmol/L (98-107) 06/27/21 04:25 Carbon Dioxide 24.4 mmol/L (21-32) 06/27/21 04:25 BUN 6 mg/dL (7-18) L 06/27/21 04:25 Creatinine 0.82 mg/dL (0.55-1.02) 06/27/21 04:25 Est GFR (MDRD) Af Amer > 60 (>60) 06/27/21 04:25 Est GFR (MDRD) Non-Af > 60 (>60) 06/27/21 04:25 Glucose 301 mg/dL (65-99) H 06/27/21 04:25 POC Glucose (mg/dL) 353 mg/dL (65-99) H 06/27/21 16:30 Calcium 8.2 mg/dL (8.5-10.1) L 06/27/21 04:25 Corrected Calcium 9.3 mg/dL (8.5-10.1) 06/27/21 04:25 Magnesium 2.2 mg/dL (1.7-2.9) 06/27/21 05:18 Total Bilirubin 0.40 mg/dL (0.2-1.0) 06/27/21 04:25 AST 31 Units/L (15-37) 06/27/21 04:25 ALT 20 Units/L (12-78) 06/27/21 04:25 Alkaline Phosphatase 68 Units/L (46-116) 06/27/21 04:25 C-Reactive Protein 130.10 mg/L (0-3.0) H 06/27/21 04:25 Total Protein 7.4 g/dL (6.4-8.2) 06/27/21 04:25 Albumin 2.6 g/dL (3.4-5.0) L 06/27/21 04:25 Globulin 4.8 g/dL (2.5-4.5) H 06/27/21 04:25 Albumin/Globulin Ratio 0.5 Ratio (1.1-2.1) L 06/27/21 04:25 Review of Systems Constitutional: Fever, Chills and Weakness Eyes: No Symptoms Reported ENT: No Symptoms Reported Respiratory: Cough and Shortness of Breath Cardiovascular: No Symptoms Reported Gastrointestinal: Nausea Genitourinary: No Symptoms Reported Musculoskeletal: No Symptoms Reported Skin: No Symptoms Reported Neurological: No Symptoms Reported Physical Exam Vital Signs: Temperature 98.3 F Pulse Rate [Radial] 91 Pulse Rate 98 Respiratory Rate 22 Blood Pressure [Right Arm] 123/74 O2 Sat by Pulse Oximetry 95 Oriented: Normal Eyes: Normal Ear: Normal Nose: Normal Throat: Normal Respiratory: Diminished Throughout Cardiovascular: Normal : Normal Auscultation: Bowel Sounds: Normal Palpation: Normal Tenderness: Normal Skin: Normal Musculoskeletal: Normal Psychiatric: Normal Mood Description: Calm and Appropriate Affect: Normal Speech Pattern: Clear and Appropriate Assessment/Plan (1) Pneumonia due to COVID-19 virus: Status: Acute Plan: Pneumonia protocol (2) Dehydration: Status: Acute (3) Diabetes mellitus type 2, uncomplicated: Status: Acute Review H&P Reviewed: Yes Patient was examined?: Yes
--- NOTE | 2021-06-27 19:25 | PCM.PROG ---
Progress Note Progress Note for Day of Date of Exam: 06/27/21 Subjective Subjective: Pt is a 40 year old female past medical history of Hypertension, DMT2, admitted for COVID-19 pneumonia with hypoxia and dehydration. This morning she is nauseated but she did receive morphine before I saw her. Will discontinue morphine and restart her home norco dose. Otherwise, she is gradually regaining her strength. She still has poor appetite and is requiring 2L nasal cannula supplemental oxygen. Labs/imaging: Wbc 3.0, Hgb 12.3, Plt 199, Na 137, K 3.7, Creatinine 0.82, Glucose 301. CXR was obtained this morning that revealed: Bibasilar pulmonary infiltrates consistent with pneumonia. Pt is currently on pneumonia protocol that includes: IVF NS@125ml/h, Remdesivir, scheduled Bronch odilators Xopenex and Budesonide, Famotidine 40mg BID, Tussionex prn, immune supporting supplements, supplemental O2, SSI, I/S, Lovenox 30mg BID, Physical therapy, Respiratory therapy consult. Has received Actemra x 1 dose. Will order another dose of actemra. Hold at this time steroids due to significant hyperglycemia. Increase Lantus dose and when glucose at acceptable levels can consider introduction of steroids if indicated. Titrate/wean supplemental oxygen as tolerated. Continue to monitor and follow up labs/imaging in the morning. Time spent on clinical assessment, reviewing labs and imaging, decision making, and documentation greater than 45 minutes. Past Medical Family Social History Past Med/Fam/Surg Hx: No changes since H&P Allergies: Allergies cheese Allergy (Verified 04/22/20 14:10) Review of Systems ROS: No change since H&P Vital Signs and I&O's Vital Signs: Temperature 98.3 F Pulse Rate [Radial] 91 Pulse Rate 98 Respiratory Rate 22 Blood Pressure [Right Arm] 123/74 O2 Sat by Pulse Oximetry 95 Intake and Output: Intake & Output 06/24/21 06/25/21 06/26/21 06/27/21 23:59 23:59 23:59 23:59 Intake Total 2985 / 2985 2415 / 2415 Output Total 800 / 800 Balance 2985 / 2985 1615 / 1615 Physical Exam Oriented: Normal Eyes: Normal Ear: Normal Nose: Normal Throat: Normal Respiratory: Diminished Cardiovascular: Normal : Normal Auscultation: Bowel Sounds: Normal Tenderness: Normal Skin: Normal Musculoskeletal: Normal Psychiatric: Normal Mood Description: Calm and Appropriate Affect: Normal Speech Pattern: Clear and Appropriate Laboratory and Diagnostics Result Diagrams: 06/27/21 04:25 06/27/21 04:25 Labs: Laboratory WBC 3.0 X10^3/uL (3.6-10.0) L 06/27/21 04:25 RBC 4.57 X10^6/uL (3.5-5.4) 06/27/21 04:25 Hgb 12.3 g/dL (12.0-16.0) D 06/27/21 04:25 Hct 36.5 % (36.0-47.0) 06/27/21 04:25 MCV 79.8 fL (80.0-100.0) L 06/27/21 04:25 MCH 26.9 pg (27.0-34.0) L 06/27/21 04:25 MCHC 33.7 g/dL (33.0-35.0) 06/27/21 04:25 RDW 13.9 % (11.6-16.5) 06/27/21 04:25 Plt Count 199 X10^3/uL (150.0-450.0) 06/27/21 04:25 MPV 9.6 fL (7.4-11.0) 06/27/21 04:25 Neut % (Auto) 61.2 % (42.0-75.0) 06/27/21 04:25 Lymph % (Auto) 32.1 % (21.0-51.0) 06/27/21 04:25 [place] % (Auto) 5.9 % (0.0-13.0) 06/27/21 04:25 Eos % (Auto) 0.2 % (0.9-2.9) L 06/27/21 04:25 Baso % (Auto) 0.6 % (0.2-1.0) 06/27/21 04:25 Neut # (Auto) 1.8 x10^3/uL (2.2-4.8) L 06/27/21 04:25 Lymph # (Auto) 1.0 X10^3/uL (1.3-2.9) L 06/27/21 04:25 [place] # (Auto) 0.2 x10^3/uL (0.3-0.8) L 06/27/21 04:25 Eos # (Auto) 0.0 x10^3/uL (0.0-0.2) 06/27/21 04:25 Baso # (Auto) 0.0 X10^3/uL (0.0-0.1) 06/27/21 04:25 Absolute Nucleated RBC 0.1 /100WBC 06/27/21 04:25 D-Dimer < 0.27 ug/ml (0.0-0.57) 06/26/21 15:00 Sample Site Lra 06/26/21 16:48 ABG pH 7.460 (7.35-7.45) H 06/26/21 16:48 ABG pCO2 29.0 mmHg (35.0-45.0) L 06/26/21 16:48 ABG pO2 59.0 mmHg (80.0-100.0) L 06/26/21 16:48 ABG HCO3 20.6 mmol/L (22-26) L 06/26/21 16:48 ABG O2 Saturation 92.0 % (90-100) 06/26/21 16:48 ABG Base Excess -2.2 mmol/L (-2.0-2.0) L 06/26/21 16:48 Alvarez Test Pos 06/26/21 16:48 A-a Gradient 54.0 mmHg 06/26/21 16:48 FiO2 21.0 06/26/21 16:48 Blood Gas Comments Pt kel well eb,thaw shed heater tender 06/26/21 16:48 Sodium 132 mmol/L (136-145) L 06/27/21 04:25 Corrected Sodium 137 mmol/L (136-145) 06/27/21 04:25 Potassium 3.7 mmol/L (3.5-5.1) 06/27/21 04:25 Chloride 98 mmol/L (98-107) 06/27/21 04:25 Carbon Dioxide 24.4 mmol/L (21-32) 06/27/21 04:25 BUN 6 mg/dL (7-18) L 06/27/21 04:25 Creatinine 0.82 mg/dL (0.55-1.02) 06/27/21 04:25 Est GFR (MDRD) Af Amer > 60 (>60) 06/27/21 04:25 Est GFR (MDRD) Non-Af > 60 (>60) 06/27/21 04:25 Glucose 301 mg/dL (65-99) H 06/27/21 04:25 POC Glucose (mg/dL) 353 mg/dL (65-99) H 06/27/21 16:30 Calcium 8.2 mg/dL (8.5-10.1) L 06/27/21 04:25 Corrected Calcium 9.3 mg/dL (8.5-10.1) 06/27/21 04:25 Magnesium 2.2 mg/dL (1.7-2.9) 06/27/21 05:18 Total Bilirubin 0.40 mg/dL (0.2-1.0) 06/27/21 04:25 AST 31 Units/L (15-37) 06/27/21 04:25 ALT 20 Units/L (12-78) 06/27/21 04:25 Alkaline Phosphatase 68 Units/L (46-116) 06/27/21 04:25 C-Reactive Protein 130.10 mg/L (0-3.0) H 06/27/21 04:25 Total Protein 7.4 g/dL (6.4-8.2) 06/27/21 04:25 Albumin 2.6 g/dL (3.4-5.0) L 06/27/21 04:25 Globulin 4.8 g/dL (2.5-4.5) H 06/27/21 04:25 Albumin/Globulin Ratio 0.5 Ratio (1.1-2.1) L 06/27/21 04:25 Plan (1) Pneumonia due to COVID-19 virus: Status: Acute Plan: Pneumonia protocol (2) Dehydration: Status: Acute (3) Diabetes mellitus type 2, uncomplicated: Status: Acute
[2021-06-27] MEDS ORDERED: SNACK - Diabetic Appropriate PO SCH ×2 (20:00)
[2021-06-27] MEDS: LANTUS SC SCH (20:50)
[2021-06-28] MEDS: TUSSIONEX PENNKINETIC SUSP PO PRN (04:31)
[2021-06-28 05:19] LABS: BASOPHILS % (AUTO) 0.9 % (0.2-1.0); HEMATOCRIT 37.7 % (36.0-47.0); HEMOGLOBIN 12.8 g/dL (12.0-16.0); LYMPHOCYTES # (AUTO) 1.2 X10^3/uL (1.3-2.9); LYMPHOCYTES % (AUTO) 32.4 % (21.0-51.0); MEAN CORPUSCULAR HEMOGLOBIN 27.5 pg (27.0-34.0); MEAN CORPUSCULAR HGB CONC 34.1 g/dL (33.0-35.0); MEAN CORPUSCULAR VOLUME 80.6 fL (80.0-100.0); MEAN PLATELET VOLUME 9.2 fL (7.4-11.0); MONOCYTES # (AUTO) 0.1 x10^3/uL (0.3-0.8); MONOCYTES % (AUTO) 3.8 % (0.0-13.0); NEUTROPHILS # (AUTO) 2.2 x10^3/uL (2.2-4.8); NEUTROPHILS % (AUTO) 61.9 % (42.0-75.0); PLATELET COUNT 226 X10^3/uL (150.0-450.0); RED BLOOD COUNT 4.67 X10^6/uL (3.5-5.4); RED CELL DISTRIBUTION WIDTH 13.7 % (11.6-16.5); WHITE BLOOD COUNT 3.6 X10^3/uL (3.6-10.0)
[2021-06-28 05:21] LABS: ALANINE AMINOTRANSFERASE 26 Units/L (12-78); ALBUMIN 2.6 g/dL (3.4-5.0); ALKALINE PHOSPHATASE 67 Units/L (46-116); ASPARTATE AMINO TRANSFERASE 26 Units/L (15-37); BLOOD UREA NITROGEN 4 mg/dL (7-18); CALCIUM 8.2 mg/dL (8.5-10.1); CARBON DIOXIDE 24.9 mmol/L (21-32); CHLORIDE 101 mmol/L (98-107); COR CA(FOR HYPOALB) 9.3 mg/dL (8.5-10.1); COR NA(FOR HYPERGLY) 141 mmol/L (136-145); CREATININE 0.78 mg/dL (0.55-1.02); SODIUM 137 mmol/L (136-145); eGFR NON BLACK RACES > 60 (>60)
[2021-06-28] MEDS: NovoLIN R (or HumuLIN R) SC PRN ×3 (06:01→16:55)
[2021-06-28] MEDS: K-DUR TAB 20 MEQ PO PRN ×2 (06:07→08:37)
--- NOTE | 2021-06-28 07:01 | RAD ---
HISTORYCOVID-19 pneumoniaSTUDYAP chestCOMPARISONJanuary 2021FINDINGSThere is no significant interval change. Similar appearance of normal heart size. Stable extent and distribution of bilateral airspace disease with relative sparing of the extreme upper lobes. No pneumothorax or pleural fluid identified.IMPRESSIONNo significant change in appearance of bilateral pneumonia.Electronically signed by: IDRIS ROSE (Jun 28, 2021 06:59:42)
[2021-06-28] MEDS ORDERED: GLUCOPHAGE ONE ×2 (08:28→20:03)
[2021-06-28] MEDS: REMDESIVIR 100 MG in NS 100 ML IV + SPIKE MINIBAG* 120 ML IV SCH (08:36)
[2021-06-28] MEDS: AMARYL TAB 4 MG PO SCH (08:37)
[2021-06-28] MEDS: VITAMIN D3 125 mcg (5,000 UNITS) PO SCH (08:38)
[2021-06-28] MEDS: ZINC SULFATE PO SCH ×2 (08:38→20:38)
[2021-06-28] MEDS: VITAMIN C PO SCH (08:38)
[2021-06-28] MEDS: NORMODYNE TAB 100 MG PO SCH ×2 (08:39→20:37)
[2021-06-28] MEDS: LANTUS SC SCH ×2 (08:39→20:35)
[2021-06-28] MEDS: PEPCID TAB 40 MG PO SCH ×2 (08:40→20:38)
[2021-06-28] MEDS: LOVENOX INJ 30 MG SYR SC SCH (08:40)
[2021-06-28] MEDS: NORCO 10/325 TAB PO PRN ×2 (08:41→20:50)
[2021-06-28] MEDS: GLUCOPHAGE PO SCH ×2 (08:41→20:34)
[2021-06-28] MEDS ORDERED: ACTEMRA 400 MG in NS 100 ML IV 80 ML IV ONE (09:00)
[2021-06-28] MEDS: PULMICORT NEB TX 0.5 MG NEB SCH ×2 (09:16→20:32)
[2021-06-28] MEDS: BROVANA IN SCH ×2 (09:16→20:32)
[2021-06-28] MEDS: NS 1,000 ML IV 1,000 ML IV SCH ×3 (10:53→23:00)
[2021-06-28] MEDS: LOVENOX INJ 40 MG SYR SC SCH ×2 (10:58→20:35)
[2021-06-28] MEDS: ACTOS PO SCH (11:01)
[2021-06-28] MEDS: DECADRON TAB PO SCH (11:21)
[2021-06-28] MEDS: INVOKANA PO SCH (11:22)
[2021-06-28] MEDS ORDERED: PROVENTIL NEB TX 0.083% 2.5MG/ 3ML ONE (17:11)
[2021-06-28] MEDS ORDERED: PROVENTIL NEB TX 0.083% 2.5MG/ 3ML NEB PRN (17:15)
[2021-06-28] MEDS: XANAX PO PRN (17:38)
[2021-06-29] MEDS: TUSSIONEX PENNKINETIC SUSP PO PRN ×2 (02:12→22:03)
[2021-06-29 05:29] LABS: BASOPHILS % (AUTO) 0.6 % (0.2-1.0); HEMATOCRIT 37.8 % (36.0-47.0); HEMOGLOBIN 12.9 g/dL (12.0-16.0); LYMPHOCYTES # (AUTO) 0.9 X10^3/uL (1.3-2.9); LYMPHOCYTES % (AUTO) 18.2 % (21.0-51.0); MEAN CORPUSCULAR HEMOGLOBIN 27.3 pg (27.0-34.0); MEAN CORPUSCULAR HGB CONC 34.2 g/dL (33.0-35.0); MEAN PLATELET VOLUME 9.7 fL (7.4-11.0); MONOCYTES # (AUTO) 0.2 x10^3/uL (0.3-0.8); MONOCYTES % (AUTO) 3.2 % (0.0-13.0); NEUTROPHILS # (AUTO) 3.8 x10^3/uL (2.2-4.8); PLATELET COUNT 299 X10^3/uL (150.0-450.0); RED BLOOD COUNT 4.72 X10^6/uL (3.5-5.4); RED CELL DISTRIBUTION WIDTH 13.7 % (11.6-16.5); WHITE BLOOD COUNT 4.8 X10^3/uL (3.6-10.0)
[2021-06-29 05:37] LABS: ALANINE AMINOTRANSFERASE 25 Units/L (12-78); ALBUMIN 2.8 g/dL (3.4-5.0); ALKALINE PHOSPHATASE 68 Units/L (46-116); ASPARTATE AMINO TRANSFERASE 16 Units/L (15-37); BLOOD UREA NITROGEN 9 mg/dL (7-18); CALCIUM 9.1 mg/dL (8.5-10.1); CARBON DIOXIDE 25.4 mmol/L (21-32); CHLORIDE 102 mmol/L (98-107); COR CA(FOR HYPOALB) 10.1 mg/dL (8.5-10.1); COR NA(FOR HYPERGLY) 142 mmol/L (136-145); CREATININE 0.73 mg/dL (0.55-1.02); SODIUM 139 mmol/L (136-145); TOTAL PROTEIN 7.3 g/dL (6.4-8.2); eGFR NON BLACK RACES > 60 (>60)
[2021-06-29] MEDS: NovoLIN R (or HumuLIN R) SC PRN ×3 (05:52→16:52)
[2021-06-29 06:17] LABS: GIANT PLATELET RARE; PLATELET MORPHOLOGY COMMENT ABNORMAL (NORMAL)
[2021-06-29] MEDS: PULMICORT NEB TX 0.5 MG NEB SCH ×2 (08:18→20:54)
[2021-06-29] MEDS: BROVANA IN SCH ×2 (08:18→20:54)
[2021-06-29] MEDS ORDERED: GLUCOPHAGE ONE ×2 (08:38→20:05)
[2021-06-29] MEDS: REMDESIVIR 100 MG in NS 100 ML IV + SPIKE MINIBAG* 120 ML IV SCH (08:55)
[2021-06-29] MEDS: GLUCOPHAGE PO SCH ×2 (08:56→20:20)
[2021-06-29] MEDS: INVOKANA PO SCH (08:56)
[2021-06-29] MEDS: ZINC SULFATE PO SCH ×2 (08:57→20:20)
[2021-06-29] MEDS: VITAMIN C PO SCH (08:57)
[2021-06-29] MEDS: ACTOS PO SCH (08:57)
[2021-06-29] MEDS: DECADRON TAB PO SCH (08:57)
[2021-06-29] MEDS: LOVENOX INJ 40 MG SYR SC SCH ×2 (08:58→20:39)
[2021-06-29] MEDS: NORCO 10/325 TAB PO PRN (08:58)
[2021-06-29] MEDS: PEPCID TAB 40 MG PO SCH ×2 (08:59→20:20)
[2021-06-29] MEDS: VITAMIN D3 125 mcg (5,000 UNITS) PO SCH (09:00)
[2021-06-29] MEDS: NORMODYNE TAB 100 MG PO SCH ×2 (09:00→20:20)
[2021-06-29] MEDS: LANTUS SC SCH ×2 (09:00→20:38)
[2021-06-29] MEDS: NS 1,000 ML IV 1,000 ML IV SCH (16:54)
[2021-06-29] MEDS: ZOFRAN INJ 4 MG VIAL IVP PRN (20:30)
[2021-06-30 05:22] LABS: BASOPHILS # (AUTO) 0.1 X10^3/uL (0.0-0.1); BASOPHILS % (AUTO) 0.9 % (0.2-1.0); EOSINOPHILS % (AUTO) 0.1 % (0.9-2.9); HEMATOCRIT 38.6 % (36.0-47.0); LYMPHOCYTES % (AUTO) 28.3 % (21.0-51.0); MEAN CORPUSCULAR HEMOGLOBIN 26.9 pg (27.0-34.0); MEAN CORPUSCULAR HGB CONC 33.7 g/dL (33.0-35.0); MEAN CORPUSCULAR VOLUME 79.8 fL (80.0-100.0); MONOCYTES # (AUTO) 0.5 x10^3/uL (0.3-0.8); MONOCYTES % (AUTO) 7.4 % (0.0-13.0); NEUTROPHILS # (AUTO) 4.4 x10^3/uL (2.2-4.8); NEUTROPHILS % (AUTO) 63.3 % (42.0-75.0); PLATELET COUNT 324 X10^3/uL (150.0-450.0); RED BLOOD COUNT 4.83 X10^6/uL (3.5-5.4); RED CELL DISTRIBUTION WIDTH 14.2 % (11.6-16.5); WHITE BLOOD COUNT 6.9 X10^3/uL (3.6-10.0)
[2021-06-30 05:33] LABS: ALANINE AMINOTRANSFERASE 24 Units/L (12-78); ALBUMIN 2.9 g/dL (3.4-5.0); ALKALINE PHOSPHATASE 62 Units/L (46-116); ASPARTATE AMINO TRANSFERASE 16 Units/L (15-37); BLOOD UREA NITROGEN 9 mg/dL (7-18); CARBON DIOXIDE 27.7 mmol/L (21-32); CHLORIDE 103 mmol/L (98-107); COR CA(FOR HYPOALB) 9.9 mg/dL (8.5-10.1); CREATININE 0.78 mg/dL (0.55-1.02); SODIUM 142 mmol/L (136-145); TOTAL PROTEIN 7.2 g/dL (6.4-8.2); eGFR NON BLACK RACES > 60 (>60)
[2021-06-30] MEDS ORDERED: GLUCOPHAGE ONE (08:04)
[2021-06-30 08:10] VITALS: BP 123/65
[2021-06-30] MEDS: REMDESIVIR 100 MG in NS 100 ML IV + SPIKE MINIBAG* 120 ML IV SCH (08:10)
[2021-06-30] MEDS: ACTOS PO SCH (08:10)
[2021-06-30] MEDS: INVOKANA PO SCH (08:11)
[2021-06-30] MEDS: LOVENOX INJ 40 MG SYR SC SCH (08:12)
[2021-06-30] MEDS: NORMODYNE TAB 100 MG PO SCH (08:12)
[2021-06-30] MEDS: VITAMIN C PO SCH (08:12)
[2021-06-30] MEDS: VITAMIN D3 125 mcg (5,000 UNITS) PO SCH (08:12)
[2021-06-30] MEDS: PEPCID TAB 40 MG PO SCH (08:13)
[2021-06-30] MEDS: K-DUR TAB 20 MEQ PO PRN (08:14)
[2021-06-30] MEDS: ZINC SULFATE PO SCH (08:15)
[2021-06-30] MEDS: BROVANA IN SCH (08:15)
[2021-06-30] MEDS: PULMICORT NEB TX 0.5 MG NEB SCH (08:15)
[2021-06-30] MEDS: GLUCOPHAGE PO SCH (08:18)
[2021-06-30] MEDS: LANTUS SC SCH (08:19)
[2021-06-30] MEDS ORDERED: DECADRON TAB PO SCH (09:00)
--- NOTE | 2021-06-30 09:27 | W.DIS.FURT ---
Summary of Discharge Discharge Summary of Date Date of Exam: 06/30/21 Admission Date Date of Admission: 06/26/21 Admission Diagnosis Hospital Course: Pt is a 40 year old female past medical history of Hypertension, DMT2, admitted for COVID-19 pneumonia with hypoxia and dehydration. Her hospital/treatment course included: IVF NS@125ml/h, Remdesivir, scheduled Bronchodilators Xopenex and Budesonide, Famotidine 40mg BID, Tussionex prn, immune supporting supplements, supplemental O2, SSI, I/S, Lovenox 30mg BID, Physical therapy, Respiratory therapy consult. Has received Actemra x 1 dose. Will order another dose of actemra. Hold at this time steroids due to significant hyperglycemia. Increase Lantus dose and when glucose at acceptable levels can consider introduction of steroids if indicated. Titrate/wean supplemental oxygen as shanelle ated. Continue to monitor and follow up labs/imaging in the morning. Vital Signs: Vital Signs (72 hours) 06/27/21 10:00 06/27/21 10:38 06/27/21 11:00 Temperature Pulse Rate Pulse Rate [Radial] 109 H 91 H Respiratory Rate 26 H 26 H 24 Blood Pressure Blood Pressure [Right Arm] 122/67 129/60 O2 Sat by Pulse Oximetry 90 L 96 06/27/21 11:38 06/27/21 12:00 06/27/21 13:00 Temperature 97.2 F L Pulse Rate Pulse Rate [Radial] 90 85 Respiratory Rate 21 19 17 Blood Pressure Blood Pressure [Right Arm] 116/66 121/66 O2 Sat by Pulse Oximetry 94 L 97 06/27/21 14:00 06/27/21 15:00 06/27/21 16:00 Temperature 98.3 F Pulse Rate Pulse Rate [Radial] 96 H 98 H 90 Respiratory Rate 20 24 20 Blood Pressure Blood Pressure [Right Arm] 145/74 115/78 123/75 O2 Sat by Pulse Oximetry 95 92 L 96 06/27/21 17:00 06/27/21 18:00 06/27/21 19:00 Temperature 98.0 F Pulse Rate Pulse Rate [Radial] 92 H 91 H 92 H Respiratory Rate 25 H 22 24 Blood Pressure Blood Pressure [Right Arm] 119/77 123/74 121/72 O2 Sat by Pulse Oximetry 95 95 91 L 06/27/21 20:00 06/27/21 20:11 06/27/21 20:52 Temperature 98.0 F Pulse Rate 91 H Pulse Rate [Radial] 92 H Respiratory Rate 33 H 27 H Blood Pressure Blood Pressure [Right Arm] 123/68 O2 Sat by Pulse Oximetry 99 92 L 06/27/21 21:00 06/27/21 21:52 06/27/21 22:00 Temperature Pulse Rate Pulse Rate [Radial] 98 H 94 H Respiratory Rate 27 H 19 28 H Blood Pressure Blood Pressure [Right Arm] 134/77 117/69 O2 Sat by Pulse Oximetry 98 96 06/27/21 23:00 06/28/21 00:00 06/28/21 01:00 Temperature Pulse Rate Pulse Rate [Radial] 88 86 85 Respiratory Rate 22 19 20 Blood Pressure Blood Pressure [Right Arm] 128/75 117/68 128/82 O2 Sat by Pulse Oximetry 97 92 L 98 06/28/21 02:00 06/28/21 03:00 06/28/21 03:30 Temperature Pulse Rate 84 Pulse Rate [Radial] 86 82 Respiratory Rate 22 19 21 Blood Pressure 130/79 Blood Pressure [Right Arm] 107/64 129/83 O2 Sat by Pulse Oximetry 97 98 96 06/28/21 03:45 06/28/21 04:00 06/28/21 04:03 Temperature 99.1 F Pulse Rate 93 H 111 H 108 H Pulse Rate [Radial] 89 Respiratory Rate 30 H 48 H 62 H Blood Pressure 125/83 Blood Pressure [Right Arm] 125/83 O2 Sat by Pulse Oximetry 94 L 88 L 91 L 06/28/21 04:15 06/28/21 04:30 06/28/21 04:45 Temperature Pulse Rate 87 89 91 H Pulse Rate [Radial] Respiratory Rate 22 20 21 Blood Pressure 128/74 Blood Pressure [Right Arm] O2 Sat by Pulse Oximetry 95 95 96 06/28/21 05:00 06/28/21 05:15 06/28/21 05:30 Temperature Pulse Rate 87 87 86 Pulse Rate [Radial] 90 Respiratory Rate 19 19 17 Blood Pressure 131/81 135/77 Blood Pressure [Right Arm] 131/81 O2 Sat by Pulse Oximetry 97 97 97 06/28/21 05:45 06/28/21 06:00 06/28/21 06:15 Temperature Pulse Rate 87 86 87 Pulse Rate [Radial] 89 Respiratory Rate 21 20 18 Blood Pressure 129/76 Blood Pressure [Right Arm] 129/76 O2 Sat by Pulse Oximetry 98 96 96 06/28/21 06:30 06/28/21 06:45 06/28/21 07:00 Temperature Pulse Rate 85 85 86 Pulse Rate [Radial] Respiratory Rate 21 25 H 26 H Blood Pressure 130/76 145/90 Blood Pressure [Right Arm] O2 Sat by Pulse Oximetry 96 97 95 06/28/21 07:15 06/28/21 07:30 06/28/21 07:45 Temperature Pulse Rate 96 H 98 H 98 H Pulse Rate [Radial] Respiratory Rate 27 H 30 H 29 H Blood Pressure 124/79 Blood Pressure [Right Arm] O2 Sat by Pulse Oximetry 94 L 92 L 92 L 06/28/21 08:00 06/28/21 08:15 06/28/21 08:30 Temperature 98 F Pulse Rate 92 H 97 H 92 H Pulse Rate [Radial] Respiratory Rate 23 29 H 23 Blood Pressure 120/72 125/69 Blood Pressure [Right Arm] O2 Sat by Pulse Oximetry 95 94 L 96 06/28/21 08:41 06/28/21 08:45 06/28/21 09:00 Temperature Pulse Rate 92 H 100 H Pulse Rate [Radial] Respiratory Rate 19 23 37 H Blood Pressure Blood Pressure [Right Arm] O2 Sat by Pulse Oximetry 97 94 L 06/28/21 09:01 06/28/21 09:15 06/28/21 09:16 Temperature Pulse Rate 99 H 98 H 97 H Pulse Rate [Radial] Respiratory Rate 31 H 29 H Blood Pressure 113/65 Blood Pressure [Right Arm] O2 Sat by Pulse Oximetry 94 L 95 97 06/28/21 09:30 06/28/21 09:41 06/28/21 09:45 Temperature Pulse Rate 103 H 88 Pulse Rate [Radial] Respiratory Rate 40 H 19 20 Blood Pressure 114/65 Blood Pressure [Right Arm] O2 Sat by Pulse Oximetry 88 L 97 06/28/21 10:00 06/28/21 10:15 06/28/21 10:30 Temperature Pulse Rate 86 88 86 Pulse Rate [Radial] Respiratory Rate 17 19 21 Blood Pressure 116/67 122/66 Blood Pressure [Right Arm] O2 Sat by Pulse Oximetry 96 97 97 06/28/21 10:45 06/28/21 11:00 06/28/21 11:15 Temperature Pulse Rate 84 80 88 Pulse Rate [Radial] Respiratory Rate 18 20 27 H Blood Pressure 113/65 Blood Pressure [Right Arm] O2 Sat by Pulse Oximetry 97 98 96 06/28/21 11:30 06/28/21 11:45 06/28/21 12:00 Temperature 98.2 F Pulse Rate 82 87 84 Pulse Rate [Radial] Respiratory Rate 19 29 H 19 Blood Pressure 117/73 116/71 Blood Pressure [Right Arm] O2 Sat by Pulse Oximetry 98 98 96 06/28/21 12:15 06/28/21 12:30 06/28/21 12:45 Temperature Pulse Rate 93 H 90 91 H Pulse Rate [Radial] Respiratory Rate 28 H 26 H 27 H Blood Pressure 117/71 Blood Pressure [Right Arm] O2 Sat by Pulse Oximetry 93 L 92 L 96 06/28/21 13:00 06/28/21 13:15 06/28/21 13:30 Temperature Pulse Rate 96 H 99 H 95 H Pulse Rate [Radial] Respiratory Rate 27 H 48 H 32 H Blood Pressure 114/75 117/64 Blood Pressure [Right Arm] O2 Sat by Pulse Oximetry 93 L 93 L 93 L 06/28/21 13:45 06/28/21 14:00 06/28/21 14:15 Temperature Pulse Rate 94 H 100 H 99 H Pulse Rate [Radial] Respiratory Rate 30 H 33 H 37 H Blood Pressure 118/65 Blood Pressure [Right Arm] O2 Sat by Pulse Oximetry 94 L 92 L 90 L 06/28/21 14:30 06/28/21 14:31 06/28/21 14:45 Temperature Pulse Rate 102 H 103 H 109 H Pulse Rate [Radial] Respiratory Rate 51 H 48 H 58 H Blood Pressure 117/75 Blood Pressure [Right Arm] O2 Sat by Pulse Oximetry 90 L 91 L 89 L 06/28/21 15:00 06/28/21 15:15 06/28/21 15:30 Temperature Pulse Rate 96 H 99 H 87 Pulse Rate [Radial] Respiratory Rate 35 H 33 H 22 Blood Pressure 122/82 124/76 Blood Pressure [Right Arm] O2 Sat by Pulse Oximetry 93 L 94 L 95 06/28/21 15:45 06/28/21 16:00 06/28/21 16:15 Temperature Pulse Rate 93 H 95 H 100 H Pulse Rate [Radial] Respiratory Rate 30 H 31 H 33 H Blood Pressure 125/76 Blood Pressure [Right Arm] O2 Sat by Pulse Oximetry 91 L 90 L 90 L 06/28/21 16:30 06/28/21 16:45 06/28/21 17:00 Temperature 97.8 F Pulse Rate 95 H 104 H 105 H Pulse Rate [Radial] Respiratory Rate 38 H 36 H 37 H Blood Pressure 127/74 Blood Pressure [Right Arm] O2 Sat by Pulse Oximetry 94 L 94 L 92 L 06/28/21 17:14 06/28/21 17:15 06/28/21 17:30 Temperature Pulse Rate 100 H 117 H Pulse Rate [Radial] Respiratory Rate 40 H 60 H Blood Pressure Blood Pressure [Right Arm] O2 Sat by Pulse Oximetry 94 L 97 89 L 06/28/21 17:31 06/28/21 17:35 06/28/21 17:45 Temperature Pulse Rate 115 H 102 H 97 H Pulse Rate [Radial] Respiratory Rate 56 H 54 H 28 H Blood Pressure 145/109 139/81 Blood Pressure [Right Arm] O2 Sat by Pulse Oximetry 90 L 92 L 94 L 06/28/21 18:00 06/28/21 18:15 06/28/21 18:30 Temperature Pulse Rate 94 H 99 H 95 H Pulse Rate [Radial] Respiratory Rate 29 H 34 H 30 H Blood Pressure 135/87 145/80 Blood Pressure [Right Arm] O2 Sat by Pulse Oximetry 95 96 93 L 06/28/21 18:45 06/28/21 19:00 06/28/21 19:15 Temperature Pulse Rate 101 H 97 H 100 H Pulse Rate [Radial] Respiratory Rate 35 H 26 H 28 H Blood Pressure 131/77 Blood Pressure [Right Arm] O2 Sat by Pulse Oximetry 95 95 95 06/28/21 19:30 06/28/21 19:45 06/28/21 20:00 Temperature 98.2 F Pulse Rate 109 H 107 H 104 H Pulse Rate [Radial] Respiratory Rate 21 39 H 33 H Blood Pressure 122/76 Blood Pressure [Right Arm] O2 Sat by Pulse Oximetry 94 L 93 L 95 06/28/21 20:15 06/28/21 20:30 06/28/21 20:32 Temperature Pulse Rate 101 H 103 H 115 H Pulse Rate [Radial] Respiratory Rate 29 H 35 H Blood Pressure 135/87 Blood Pressure [Right Arm] O2 Sat by Pulse Oximetry 95 95 97 06/28/21 20:45 06/28/21 20:50 06/28/21 21:00 Temperature Pulse Rate 105 H 104 H Pulse Rate [Radial] Respiratory Rate 43 H 23 34 H Blood Pressure 124/72 Blood Pressure [Right Arm] O2 Sat by Pulse Oximetry 97 94 L 06/28/21 21:15 06/28/21 21:30 06/28/21 21:45 Temperature Pulse Rate 97 H 97 H 97 H Pulse Rate [Radial] Respiratory Rate 29 H 25 H 28 H Blood Pressure 122/71 Blood Pressure [Right Arm] O2 Sat by Pulse Oximetry 97 94 L 96 06/28/21 21:50 06/28/21 22:00 06/28/21 22:15 Temperature Pulse Rate 103 H 108 H Pulse Rate [Radial] Respiratory Rate 27 H 41 H Blood Pressure 118/69 Blood Pressure [Right Arm] O2 Sat by Pulse Oximetry 94 L 92 L 06/28/21 22:30 06/28/21 22:45 06/28/21 23:00 Temperature Pulse Rate 100 H 95 H 93 H Pulse Rate [Radial] Respiratory Rate 30 H 27 H 25 H Blood Pressure 116/80 121/72 Blood Pressure [Right Arm] O2 Sat by Pulse Oximetry 93 L 96 96 06/28/21 23:15 06/28/21 23:30 06/28/21 23:45 Temperature Pulse Rate 95 H 95 H 101 H Pulse Rate [Radial] Respiratory Rate 27 H 26 H Blood Pressure 113/68 Blood Pressure [Right Arm] O2 Sat by Pulse Oximetry 96 93 L 94 L 06/29/21 00:00 06/29/21 00:07 06/29/21 00:15 Temperature 97.6 F Pulse Rate 103 H 95 H 94 H Pulse Rate [Radial] Respiratory Rate 24 35 H 31 H Blood Pressure 128/77 128/77 Blood Pressure [Right Arm] O2 Sat by Pulse Oximetry 90 L 92 L 91 L 06/29/21 00:30 06/29/21 00:45 06/29/21 01:00 Temperature Pulse Rate 93 H 96 H 96 H Pulse Rate [Radial] Respiratory Rate 30 H 26 H 30 H Blood Pressure 114/66 Blood Pressure [Right Arm] O2 Sat by Pulse Oximetry 94 L 92 L 91 L 06/29/21 01:15 06/29/21 01:30 06/29/21 01:45 Temperature Pulse Rate 92 H 90 92 H Pulse Rate [Radial] Respiratory Rate 25 H 22 26 H Blood Pressure Blood Pressure [Right Arm] O2 Sat by Pulse Oximetry 92 L 92 L 96 06/29/21 02:00 06/29/21 02:15 06/29/21 02:30 Temperature Pulse Rate 87 89 85 Pulse Rate [Radial] Respiratory Rate 24 22 20 Blood Pressure 119/76 Blood Pressure [Right Arm] O2 Sat by Pulse Oximetry 97 97 99 06/29/21 02:45 06/29/21 03:00 06/29/21 04:00 Temperature 97.7 F Pulse Rate 85 83 81 Pulse Rate [Radial] Respiratory Rate 22 19 17 Blood Pressure 150/84 150/73 Blood Pressure [Right Arm] O2 Sat by Pulse Oximetry 98 98 97 06/29/21 05:00 06/29/21 06:00 06/29/21 08:00 Temperature 98.3 F Pulse Rate 85 86 92 H Pulse Rate [Radial] Respiratory Rate 20 26 H 19 Blood Pressure 133/77 141/77 140/78 Blood Pressure [Right Arm] O2 Sat by Pulse Oximetry 97 98 94 L 06/29/21 08:18 06/29/21 08:58 06/29/21 09:58 Temperature Pulse Rate 81 Pulse Rate [Radial] Respiratory Rate 16 19 Blood Pressure Blood Pressure [Right Arm] O2 Sat by Pulse Oximetry 92 L 06/29/21 12:00 06/29/21 14:00 06/29/21 16:00 Temperature 98 F 98.1 F 98 F Pulse Rate 93 H 90 Pulse Rate [Radial] Respiratory Rate 20 20 Blood Pressure 146/83 122/70 Blood Pressure [Right Arm] O2 Sat by Pulse Oximetry 92 L 96 06/29/21 20:00 06/29/21 20:54 06/30/21 02:50 Temperature 99.0 F 97.9 F Pulse Rate 95 H 96 H 76 Pulse Rate [Radial] Respiratory Rate 24 20 Blood Pressure 122/76 136/85 Blood Pressure [Right Arm] O2 Sat by Pulse Oximetry 95 94 L 98 06/30/21 04:00 06/30/21 08:00 06/30/21 08:13 Temperature 98.1 F 97.9 F Pulse Rate 75 86 85 Pulse Rate [Radial] Respiratory Rate 19 21 Blood Pressure 154/81 123/65 Blood Pressure [Right Arm] O2 Sat by Pulse Oximetry 93 L 95 97 Labs: Laboratory Last Values WBC 6.9 X10^3/uL (3.6-10.0) 06/30/21 04:08 RBC 4.83 X10^6/uL (3.5-5.4) 06/30/21 04:08 Hgb 13.0 g/dL (12.0-16.0) 06/30/21 04:08 Hct 38.6 % (36.0-47.0) 06/30/21 04:08 MCV 79.8 fL (80.0-100.0) L 06/30/21 04:08 MCH 26.9 pg (27.0-34.0) L 06/30/21 04:08 MCHC 33.7 g/dL (33.0-35.0) 06/30/21 04:08 RDW 14.2 % (11.6-16.5) 06/30/21 04:08 Plt Count 324 X10^3/uL (150.0-450.0) 06/30/21 04:08 Plt Count Comment Adequate (ADEQUATE) 06/29/21 04:06 MPV 9.0 fL (7.4-11.0) 06/30/21 04:08 Neut % (Auto) 63.3 % (42.0-75.0) 06/30/21 04:08 Lymph % (Auto) 28.3 % (21.0-51.0) 06/30/21 04:08 Dale % (Auto) 7.4 % (0.0-13.0) 06/30/21 04:08 Eos % (Auto) 0.1 % (0.9-2.9) L 06/30/21 04:08 Baso % (Auto) 0.9 % (0.2-1.0) 06/30/21 04:08 Neut # (Auto) 4.4 x10^3/uL (2.2-4.8) 06/30/21 04:08 Lymph # (Auto) 2.0 X10^3/uL (1.3-2.9) 06/30/21 04:08 Dale # (Auto) 0.5 x10^3/uL (0.3-0.8) 06/30/21 04:08 Eos # (Auto) 0.0 x10^3/uL (0.0-0.2) 06/30/21 04:08 Baso # (Auto) 0.1 X10^3/uL (0.0-0.1) 06/30/21 04:08 Absolute Nucleated RBC 0.1 /100WBC 06/30/21 04:08 Giant Platelets Rare 06/29/21 04:06 Plt Morphology Comment Abnormal (NORMAL) A 06/29/21 04:06 RBC Morphology Normal (NORMAL) 06/29/21 04:06 D-Dimer < 0.27 ug/ml (0.0-0.57) 06/26/21 15:00 Sample Site Lra 06/26/21 16:48 ABG pH 7.460 (7.35-7.45) H 06/26/21 16:48 ABG pCO2 29.0 mmHg (35.0-45.0) L 06/26/21 16:48 ABG pO2 59.0 mmHg (80.0-100.0) L 06/26/21 16:48 ABG HCO3 20.6 mmol/L (22-26) L 06/26/21 16:48 ABG O2 Saturation 92.0 % (90-100) 06/26/21 16:48 ABG Base Excess -2.2 mmol/L (-2.0-2.0) L 06/26/21 16:48 Alvarez Test Pos 06/26/21 16:48 A-a Gradient 54.0 mmHg 06/26/21 16:48 FiO2 21.0 06/26/21 16:48 Blood Gas Comments Pt kel well eb,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/26/21 16:48 Sodium 142 mmol/L (136-145) 06/30/21 04:08 Corrected Sodium TNP 06/30/21 04:08 Potassium 3.2 mmol/L (3.5-5.1) L 06/30/21 04:08 Chloride 103 mmol/L (98-107) 06/30/21 04:08 Carbon Dioxide 27.7 mmol/L (21-32) 06/30/21 04:08 BUN 9 mg/dL (7-18) 06/30/21 04:08 Creatinine 0.78 mg/dL (0.55-1.02) 06/30/21 04:08 Est GFR (MDRD) Af Amer > 60 (>60) 06/30/21 04:08 Est GFR (MDRD) Non-Af > 60 (>60) 06/30/21 04:08 Glucose 91 mg/dL (65-99) 06/30/21 04:08 POC Glucose (mg/dL) 287 mg/dL (65-99) H 06/29/21 19:50 Calcium 9.0 mg/dL (8.5-10.1) 06/30/21 04:08 Corrected Calcium 9.9 mg/dL (8.5-10.1) 06/30/21 04:08 Magnesium 2.1 mg/dL (1.7-2.9) 06/30/21 04:08 Total Bilirubin 0.30 mg/dL (0.2-1.0) 06/30/21 04:08 AST 16 Units/L (15-37) 06/30/21 04:08 ALT 24 Units/L (12-78) 06/30/21 04:08 Alkaline Phosphatase 62 Units/L (46-116) 06/30/21 04:08 C-Reactive Protein 13.50 mg/L (0-3.0) H 06/30/21 04:08 Total Protein 7.2 g/dL (6.4-8.2) 06/30/21 04:08 Albumin 2.9 g/dL (3.4-5.0) L 06/30/21 04:08 Globulin 4.3 g/dL (2.5-4.5) 06/30/21 04:08 Albumin/Globulin Ratio 0.7 Ratio (1.1-2.1) L 06/30/21 04:08 Reason For Visit: COVID PNEUMONIA, DEHYDRATION Discharge Diagnosis All Active Problems (Updated 06/27/21 @ 19:14 by Cameron John) Dehydration (Acute) Pneumonia due to COVID-19 virus (Acute) Febrile illness, acute (Acute) Weakness (Acute) Persistent dry cough (Acute) Bronchospasm (Acute) Sepsis (Acute) Bronchitis (Acute) Hypoxia (Acute) Acute hyperglycemia (Acute) Allergic reaction (Acute) Rash (Acute) Full body hives (Acute) Acute infective pharyngitis (Acute) Acute pain of right lower extremity (Acute) Broken tooth-uncomplic (Acute) COVID-19 (Acute) COVID-19 virus infection (Acute) Acute cystitis (Acute) Toothache (Acute) Gingivitis (Acute) Abdominal pain (Acute) Diabetes mellitus type 2, uncomplicated (Acute) GERD (gastroesophageal reflux disease) (Chronic) History of anemia (Chronic) Arthritis (Chronic) UTI (urinary tract infection) (Acute) Allergic reaction (Acute) Swelling of knee joint, left (Acute) Knee pain, left (Acute) Tachycardia (Acute) Flank pain (Acute) Fall due to wet surface (Acute) Knee pain (Acute) Contusion of left knee (Acute) Muscle spasm (Acute) Menorrhagia with irregular cycle (Acute) Otitis externa (Acute) Otitis media (Acute) Vitiligo (Acute) Tinea versicolor (Acute) Right flank pain (Acute) Ovarian cyst (Acute) Acute cystitis (Acute) Acute UTI (urinary tract infection) (Acute) Ovarian cyst (Acute) Viral syndrome (Acute) Bronchitis (Acute) Sinusitis (Acute) Gingivitis (Acute) Pain, dental (Acute) Knee pain (Acute) Neuropathic pain (Acute) Muscle strain (Acute) Edema (Acute) Abdominal pain (Acute) Back pain (Acute) Trichomoniasis (Acute) Head ache (Acute) Chest pain (Acute) Hypoglycemia (Acute) Light headedness (Acute) Episode of syncope (Acute) Influenza (Acute) Helicobacter positive gastritis (Acute) Diabetes mellitus (Acute) Hypokalemia (Acute) UTI (urinary tract infection) (Acute) Chest pain (Acute) Migraine (Acute) Pharyngitis (Acute) Localized osteoarthritis of left knee (Acute) Hyperglycemia due to type 2 diabetes mellitus (Acute) Chest pain in adult (Acute) Essential hypertension (Acute) Lower extremity pain (Acute) Musculoskeletal pain (Acute) Dizzinesses (Acute) Allergic sinusitis (Acute) Shortness of breath (Acute) Headache (Acute) Acute seasonal allergic rhinitis (Acute) Allergic reaction (Acute) Sinusitis (Acute) URI (upper respiratory infection) (Acute) Headache (Acute) Hyperglycemia (Acute) Acute dehydration (Acute) Arm pain, right (Acute) Hyperglycemia, drug-induced (Acute) Plan of Treatment: Continue with present treatment and follow up plan. Pt is to keep follow up appointment as instructed and take medications as ordered. Discharge Medications Discharge Medications: cheese Allergy (Verified 04/22/20 14:10) Discharge Plan Discharge Plan Hospital Course: Pt is a 40 year old female past medical history of Hypertension, DMT2, admitted for COVID-19 pneumonia with hypoxia and dehydration. Her hospital/treatment course included: IVF NS@125ml/h, Remdesivir, scheduled Bronchodilators Xopenex and Budesonide, Famotidine 40mg BID, Tussionex prn, immune supporting supplements, supplemental O2, SSI, I/S, Lovenox 30mg BID, Physical therapy, Respiratory therapy consult. Has received Actemra x 1 dose. Will order another dose of actemra. Hold at this time steroids due to significant hyperglycemia. I ncrease Lantus dose and when glucose at acceptable levels can consider introduction of steroids if indicated. Titrate/wean supplemental oxygen as tolerated. Continue to monitor and follow up labs/imaging in the morning. Patient Disposition: 01 HOME, SELF-CARE Condition: Stable Health Concerns: Post Hospitalization: new medications and changes needed to prevent readmission or further decline. Pt educated and given instructions on all concerns. Care Plan Goals: Problem: Respiratory Complications Goal: Improved Uncomplicated Respiratory Status Instructions: Follow provided instructions. Follow up with primary physician as directed. Contact primary care physician or report to the closest Emergency Room if condition worsens. Plan of Treatment: Continue with present treatment and follow up plan. Pt is to keep follow up appointment as instructed and take medications as ordered. Prescriptions: Continued albuterol sulfate 90 mcg/actuation HFA aerosol inhaler 2 puff IN Q6H PRN (Reason: shortness of breath or wheezing) Qty: 8.5 RF: 0 alprazolam 0.5 mg tablet 0.5 mg PO BID PRN (Reason: Anxiety) RF: 0 famotidine 20 mg tablet 20 mg PO BID PRNRF: 0 metformin 1,000 mg tablet 1,000 mg PO BID RF: 0 glimepiride 4 mg tablet 4 mg PO BID RF: 0 gabapentin 300 mg capsule 300 mg PO BID RF: 0 furosemide 20 mg tablet 20 mg PO DAILY PRNRF: 0 ibuprofen 800 mg tablet 800 mg PO Q6H PRN (Reason: w/food, for aches/fever) Qty: 20 RF: 0 hydrocodone-acetaminophen 5-325 mg tablet 1 tab PO Q4-6H MDD 6 PRN (Reason: for severe pain/cough) Qty: 12 RF: 0 cinnamon bark [Cinnamon] 500 mg Capsule 1,000 mg PO DAILY RF: 0 diphenhydramine HCl 25 mg Capsule 25 mg PO Q6H PRNRF: 0 promethazine 25 mg tablet 25 mg PO Q6H PRN (Reason: Nausea) RF: 0 labetalol 100 mg Tablet 100 mg PO BID RF: 0 Combivent Respimat 20-100 mcg/actuation Mist 1 puff INHALATION Q4H PRNQty: 30 RF: 0 montelukast [Singulair] 10 mg Tablet 10 mg PO QHS PRNQty: 30 RF: 0 Discontinued dexamethasone [Decadron] 4 mg tablet 4 mg PO TID Qty: 15 RF: 0 Orders to Discharge Patient Discharge Orders: Discharge (Routine); Ordered 06/30/21 Ordered By: Cameron John Follow ups/Referrals Follow ups/Referrals: Cameron John [Primary Care Provider] - 07/07/21 1:20 pm Instructions Instructions: Home Oxygen Use, Adult, Hypoxia, Type 2 Diabetes Mellitus, Diagnosis, Adult, [id number] Stand Alone Forms: Excuse From Work or School, Precautions for COVID19, [facility], Patient Portal, Social Distancing
[2021-06-30] MEDS: NovoLIN R (or HumuLIN R) SC PRN (11:12)
[2021-06-30] MEDS ORDERED: SNACK - Diabetic Appropriate PO SCH (20:00)
[2021-06-30] MEDS ORDERED: LANTUS SC SCH (21:00)
== END 2021-06-30 11:50 | disposition home or self-care (01) ==
LOC: ICU
PROVIDERS: ADMIT Family Medicine; ATTEND Family Medicine
DX: R26.89 Other abnormalities of gait and mobility; R06.02 Shortness of breath; R53.1 Weakness; E86.0 Dehydration; E11.65 Type 2 diabetes mellitus with hyperglycemia; J12.82 Pneumonia due to coronavirus disease 2019; U07.1 COVID-19; I10 Essential (primary) hypertension

== ENCOUNTER 2023-01-12 17:02 | Observation (INO) ==
[2023-01-12 17:14] VITALS: BMI 35.9
--- NOTE | 2023-01-12 17:18 | DR.WEAKNES ---
HPI Time Seen Time Seen by Provider: 01/12/23 17:18 Primary Care Physician Primary Care Physician: Alvaro Matrinez Chief Complaint Doctors Comments: 42 y/o presents for evaluation. Had onset of symptoms 2 mornings ago, awoke spouse by her shaking in bed. Having difficulty with speech since, trouble speeking freely, getting her words out. Having w eakness of both legs, hands, with tingling/numbness. Having some chest tightness, at rest. Denies fever, URI symptoms, cough, vomiting or diarrhea. Chief Complaint:: Patient unloaded from car by staff, her says she is having stroke like symptoms. Patient brought to ED via wheel chair. CAOx3. She has stuttering speech but clear. States she is light headed, weak, forgetting stuff, and has tightness in her chest. Patient was seen Wednesday in ED for same issues. Reviewed Nurses Notes Reviewed: Yes Source History Provided: Patient Mode of Arrival Mode of Arrival: Ambulatory Timing Onset of Chief Complaint: 01/10/23 Symptom Onset: Known (2 1/2 days ago) Context Stroke Symptoms: Aphasia (difficulty with expressive flow of words), Weakness of limb and Numbness of limbs PMH PMH Past Medical History: Yes Past Medical History: Anemia, Anxiety, Depression, Diabetes, Dyslipidemia, GERD and Hypertension Past Surgical History: Yes Surgical History: Cholecystectomy Family History History of Family Medical Conditions: Yes Family Medical History: Diabetes Mellitus and Hypertension Social History Does patient currently use any type of tobacco product: No Have you used tobacco products in the last 12 months: No Type of Tobacco Use: None Does any household member use tobacco: No Alcohol Use: None Do you use any recreational Drugs:: No Lives With: Spouse Lives Where: Home Travel Risk Coronavirus risk:travel/contact w/high risk person: No Has patient experienced Coronavirus symptoms: No Infectious screening In the last 2 months have you had wt loss of >10#?: NO Have you had fever, night sweats or hemotysis?: No Have you traveled outside the country in the last 6 months?: No Isolation: Standard ROS Review of Systems Constitutional: Malaise and Weakness Eyes: No Symptoms Reported ENTM: No Symptoms Reported Respiratoy: No Symptoms Reported Cardiovascular: Chest Pain Gastrointestinal/Abdominal: No Symptoms Reported Genitourinary: No Symptoms Reported Neurological: Numbness, Paresthesia, Tremors and Weakness Musculoskeletal: No Symptoms Reported Integumentary: No Symptoms Reported Hematologic/Lymphatic: No Symptoms Reported All Other Systems: Reviewed and Negative PE Vital Signs Vitals: Vital Signs Temperature 98.2 F Pulse Rate 89 Pulse Rate 93 Pulse Rate 94 Pulse Rate 99 Pulse Rate 96 Pulse Rate 98 Pulse Rate 105 Pulse Rate 99 Pulse Rate 104 Pulse Rate 107 Pulse Rate 101 Pulse Rate 106 Respiratory Rate 16 Respiratory Rate 27 Respiratory Rate 24 Respiratory Rate 20 Respiratory Rate 31 Respiratory Rate 17 Respiratory Rate 16 Respiratory Rate 18 Respiratory Rate 19 Respiratory Rate 27 Respiratory Rate 16 Respiratory Rate 20 Blood Pressure 145/77 Blood Pressure 160/89 Blood Pressure 183/108 O2 Sat by Pulse Oximetry 97 O2 Sat by Pulse Oximetry 96 O2 Sat by Pulse Oximetry 97 O2 Sat by Pulse Oximetry 98 O2 Sat by Pulse Oximetry 97 O2 Sat by Pulse Oximetry 97 O2 Sat by Pulse Oximetry 96 O2 Sat by Pulse Oximetry 98 O2 Sat by Pulse Oximetry 100 O2 Sat by Pulse Oximetry 97 O2 Sat by Pulse Oximetry 97 General General Appearance: Alert and In No Apparent Distress Head Head Exam: Normal Inspection, Atraumatic and Normocephalic Eyes Eye exam: PERRL and EOMI ENT ENT Exam: Normal Oropharynx and Mucous Membranes Moist Neck Neck Exam: Normal Inspection and Full ROM; negative Tenderness Respiratory Respiratory Exam: Normal Lung Sounds Bilat; negative Accessory Muscle Use or Respiratory Distress Cardiovascular Cardiovascular Exam: Regular Rate and Normal Rhythm Abdominal Exam Abdominal Exam: Normal Bowel Sounds and Soft; negative Tenderness Extremities Extremities Exam: Normal Inspection; negative Tenderness or Edema Neurologic Neurological Exam: Alert, Oriented X3, CN II-XII Intact and Other (+ generalized weakness, can keep arms up without drift. Can keep feet off bed, but barely. Normal finger to nose. Has hesitent speech, but clear. ) Skin Skin Exam: Warm and Dry COURSE Treatment Treatment: 42 y/o female with persistent neurological symptoms. Here 2 days ago, seen by me, w/u was negative then. Symptoms have persisted. Presentation not c/w acute CVA, CT brain 2 days ago had a clean brain, no chronic microvascular changes. 1823 - pt with increasing headache/chest pain after CT. Ekg was without ischemic changes. Pt givne IV dilaudid/zofran for pain. 1899 - labs overall acceptable, BS elevated, 372, + h/o DM with frequent elevated sugars. No obvious explanation for pt's symptoms. Considered onset of [place] an option, with bilateral weakness, but has brisk DTR's. Recommend observation admission, Consider MRI in the AM. Discussed with her PCP, Dr John. ROR Labs Reviewed 01/12/23 17:40 01/12/23 17:40 Laboratory: WBC 7.0 X10^3/uL (3.6-10.0) 01/12/23 17:40 RBC 5.33 X10^6/uL (3.5-5.4) 01/12/23 17:40 Hgb 15.3 g/dL (12.0-16.0) 01/12/23 17:40 Hct 44.4 % (36.0-47.0) 01/12/23 17:40 MCV 83.3 fL (80.0-100.0) 01/12/23 17:40 MCH 28.8 pg (27.0-34.0) 01/12/23 17:40 MCHC 34.5 g/dL (33.0-35.0) 01/12/23 17:40 RDW 12.9 % (11.6-16.5) 01/12/23 17:40 Plt Count 304 X10^3/uL (150.0-450.0) 01/12/23 17:40 MPV 9.1 fL (7.4-11.0) 01/12/23 17:40 Neut % (Auto) 35.4 % (42.0-75.0) L 01/12/23 17:40 Lymph % (Auto) 52.4 % (21.0-51.0) H 01/12/23 17:40 [place] % (Auto) 5.9 % (0.0-13.0) 01/12/23 17:40 Eos % (Auto) 5.1 % (0.9-2.9) H 01/12/23 17:40 Baso % (Auto) 1.2 % (0.2-1.0) H 01/12/23 17:40 Neut # (Auto) 2.5 x10^3/uL (2.2-4.8) 01/12/23 17:40 Lymph # (Auto) 3.6 X10^3/uL (1.3-2.9) H 01/12/23 17:40 [place] # (Auto) 0.4 x10^3/uL (0.3-0.8) 01/12/23 17:40 Eos # (Auto) 0.4 x10^3/uL (0.0-0.2) H 01/12/23 17:40 Baso # (Auto) 0.1 X10^3/uL (0.0-0.1) 01/12/23 17:40 Absolute Nucleated RBC 0.1 /100WBC 01/12/23 17:40 ESR 37 MM/HOUR (0-20) H 01/12/23 17:40 Sodium 135 mmol/L (136-145) L 01/12/23 17:40 Corrected Sodium 142 mmol/L (136-145) 01/12/23 17:40 Potassium 4.6 mmol/L (3.5-5.1) 01/12/23 17:40 Chloride 98 mmol/L (98-107) 01/12/23 17:40 Carbon Dioxide 28.7 mmol/L (21-32) 01/12/23 17:40 BUN 4 mg/dL (7-18) L 01/12/23 17:40 Creatinine 0.89 mg/dL (0.55-1.02) 01/12/23 17:40 Est GFR (MDRD) Af Amer > 60 (>60) 01/12/23 17:40 Est GFR (MDRD) Non-Af > 60 (>60) 01/12/23 17:40 Glucose 372 mg/dL (65-99) H 01/12/23 17:40 Calcium 9.8 mg/dL (8.5-10.1) 01/12/23 17:40 Corrected Calcium TNP 01/12/23 17:40 Phosphorus 3.5 mg/dL (2.6-4.7) 01/12/23 17:40 Magnesium 1.9 mg/dL (2.0-2.9) L 01/12/23 17:40 Total Bilirubin 0.30 mg/dL (0.2-1.0) 01/12/23 17:40 AST 15 Units/L (15-37) 01/12/23 17:40 ALT 21 Units/L (12-78) 01/12/23 17:40 Alkaline Phosphatase 146 Units/L (46-116) H 01/12/23 17:40 Troponin I High Sens < 4.0 ng/L (4.0-60.0) L 01/12/23 17:40 C-Reactive Protein 2.80 mg/L (0-3.0) 01/12/23 17:40 Total Protein 8.1 g/dL (6.4-8.2) 01/12/23 17:40 Albumin 4.0 g/dL (3.4-5.0) 01/12/23 17:40 Globulin 4.1 g/dL (2.5-4.5) 01/12/23 17:40 Albumin/Globulin Ratio 1.0 Ratio (1.1-2.1) L 01/12/23 17:40 TSH 3rd Generation 0.757 uIU/mL (0.358-3.74) 01/12/23 17:40 EKG Rate: 125 [place]: Normal Rhythm: ST Block: None ST: Normal Opioid Opioid Risk Tool Age (Chip box if 16-45): No History of Preadolescent Sexual Abuse: No Total: 0 Total Score Risk Category: Low Risk Copyright: Álvaro ARNOLD predicting aberrant behaviors Discharge Plan Discharge Plan Patient Disposition: HOME, SELF-CARE Condition: Stable Prescriptions: No Action gabapentin 600 mg tablet 600 mg PO QDAY atorvastatin 20 mg tablet 20 mg PO QPM ipratropium-albuterol 0.5 mg-3 mg(2.5 mg base)/3 mL solution for nebulization 1 INHALATION Q4-6H PRN glipizide 10 mg tablet 10 mg PO BID (DME) True Metrix Glucose Test Strip Strip MISCELLANEOUS BID hydrocodone-acetaminophen 10-325 mg tablet 1 tab PO BID PRN alprazolam 0.5 mg tablet 0.5 mg PO BID PRN famotidine 20 mg tablet 20 mg PO BID PRN metformin 1,000 mg tablet 1,000 mg PO BID glimepiride 4 mg tablet 4 mg PO BID promethazine 25 mg tablet 25 mg PO QDAY PRN (Reason: nausea/vomiting) sertraline 25 mg tablet 25 mg PO QDAY montelukast 10 mg tablet 10 mg PO QDAY hydroxyzine HCl 25 mg tablet 25 mg PO QDAY PRN (Reason: itch) furosemide 20 mg tablet 20 mg PO QDAY PRN (Reason: swelling) labetalol 100 mg tablet 100 mg PO BID rosuvastatin 10 mg tablet 10 mg PO QDAY insulin degludec [Tresiba FlexTouch U-200] 200 unit/mL (3 mL) insulin pen 35 unit SUBCUT BID Ozempic 0.25 mg or 0.5 mg (2 mg/3 mL) pen injector 0.5 mg SUBCUT QWEEK Orders to Discharge Patient Discharge Orders: Transfer (Routine); Ordered 01/12/23 Ordered By: Jose Daniel Cm
[2023-01-12] MEDS ORDERED: NS 1,000 ML IV 1,000 ML IV ONE (17:34)
[2023-01-12] MEDS ORDERED: NS 1,000 ML IV 1,000 ML ONE (17:36)
--- NOTE | 2023-01-12 17:37 | EKG ---
Test Reason : weakness Blood Pressure : */* mmHG Vent. Rate : 125 BPM Atrial Rate : 125 BPM P-R Int : 132 ms QRS Dur : 70 ms QT Int : 320 ms P-R-T Axes : 51 33 11 degrees QTc Int : 461 ms Sinus tachycardia Otherwise normal ECG When compared with ECG of 10-JAN-2023 06:24, No significant change was found Confirmed by Ever Johnson ([id number]) on 01/13/2023 8:25:50 AM Referred By: Confirmed By: Ever Johnson
[2023-01-12 17:51] LABS: BASOPHILS # (AUTO) 0.1 X10^3/uL (0.0-0.1); BASOPHILS % (AUTO) 1.2 % (0.2-1.0); EOSINOPHILS # (AUTO) 0.4 x10^3/uL (0.0-0.2); EOSINOPHILS % (AUTO) 5.1 % (0.9-2.9); HEMATOCRIT 44.4 % (36.0-47.0); HEMOGLOBIN 15.3 g/dL (12.0-16.0); LYMPHOCYTES # (AUTO) 3.6 X10^3/uL (1.3-2.9); LYMPHOCYTES % (AUTO) 52.4 % (21.0-51.0); MEAN CORPUSCULAR HEMOGLOBIN 28.8 pg (27.0-34.0); MEAN CORPUSCULAR HGB CONC 34.5 g/dL (33.0-35.0); MEAN CORPUSCULAR VOLUME 83.3 fL (80.0-100.0); MEAN PLATELET VOLUME 9.1 fL (7.4-11.0); MONOCYTES # (AUTO) 0.4 x10^3/uL (0.3-0.8); MONOCYTES % (AUTO) 5.9 % (0.0-13.0); NEUTROPHILS # (AUTO) 2.5 x10^3/uL (2.2-4.8); NEUTROPHILS % (AUTO) 35.4 % (42.0-75.0); PLATELET COUNT 304 X10^3/uL (150.0-450.0); RED BLOOD COUNT 5.33 X10^6/uL (3.5-5.4); RED CELL DISTRIBUTION WIDTH 12.9 % (11.6-16.5)
[2023-01-12 17:57] LABS: BLOOD UREA NITROGEN 4 mg/dL (7-18); CALCIUM 9.8 mg/dL (8.5-10.1); CARBON DIOXIDE 28.7 mmol/L (21-32); CHLORIDE 98 mmol/L (98-107); COR NA(FOR HYPERGLY) 142 mmol/L (136-145); CREATININE 0.89 mg/dL (0.55-1.02); ERYTHROCYTE SEDIMENTATION RATE 37 MM/HOUR (0-20); GLUCOSE 372 mg/dL (65-99); POTASSIUM 4.6 mmol/L (3.5-5.1); SODIUM 135 mmol/L (136-145); eGFR NON BLACK RACES > 60 (>60)
[2023-01-12 18:20] LABS: ALANINE AMINOTRANSFERASE 21 Units/L (12-78); ALKALINE PHOSPHATASE 146 Units/L (46-116); ASPARTATE AMINO TRANSFERASE 15 Units/L (15-37); MAGNESIUM 1.9 mg/dL (2.0-2.9); PHOSPHORUS 3.5 mg/dL (2.6-4.7); TOTAL PROTEIN 8.1 g/dL (6.4-8.2); TSH (3RD GENERATION) 0.757 uIU/mL (0.358-3.74)
[2023-01-12] MEDS ORDERED: ZOFRAN INJ 4 MG VIAL IVP ONE (18:25)
[2023-01-12] MEDS ORDERED: DILAUDID INJ IVP ONE (18:25)
--- NOTE | 2023-01-12 18:25 | CT ---
HISTORYhusband says she is having stroke like symptoms. She has stuttering speech but clear. States she is light headed, weak, forgetting stuff, and has tightness in her chest. Patient was seen Wednesday in ED for same issues.STUDYBRAIN W/O CONCOMPARISONCT of the brain January 10, 2023TECHNIQUEMultiple axial images of the head without contrast. Dose reduction techniques including Automated Exposure Control (AEC) and adjustment of mA and kV were utilized.FINDINGSMild mucoperiosteal thickening in the right ethmoid air cells. The middle ears are clear. No skull lesion. No hemorrhage or extra-axial collection. Normal kaiser-white matter differentiation. Appropriate ventricular size.IMPRESSIONNo acute intracranial process.Electronically signed by: Dante Dominguez (Jan 12, 2023 18:24:29)
[2023-01-12] MEDS ORDERED: ZOFRAN INJ 4 MG VIAL ONE (18:44)
[2023-01-12] MEDS ORDERED: DILAUDID INJ ONE (18:44)
[2023-01-12] MEDS ORDERED: ATARAX TAB 25 MG PO PRN (19:29)
[2023-01-12] MEDS ORDERED: PATIENT'S HOME MEDICATION (Alprazolam 0.5 mg tablet) PO PRN (19:29)
[2023-01-12] MEDS: SNACK - Diabetic Appropriate PO SCH (19:59)
[2023-01-12] MEDS ORDERED: ATARAX TAB 25 MG PO ONE (20:12)
[2023-01-12] MEDS ORDERED: GLUCOPHAGE ONE (20:42)
[2023-01-12] MEDS ORDERED: NovoLIN R (or HumuLIN R) ONE ×2 (20:45→20:59)
[2023-01-12] MEDS: GLUCOPHAGE PO SCH ×2 (20:50→20:52)
[2023-01-12] MEDS: NORMODYNE TAB 100 MG PO SCH (20:51)
[2023-01-12] MEDS: GLUCOTROL PO SCH (20:51)
[2023-01-12] MEDS: NovoLIN R (or HumuLIN R) SUBCUT PRN (20:59)
[2023-01-12] MEDS ORDERED: NORCO 10/325 TAB ONE (22:37)
[2023-01-12] MEDS: NORCO 10/325 TAB PO PRN (22:38)
[2023-01-13 05:42] LABS: BASOPHILS # (AUTO) 0.1 X10^3/uL (0.0-0.1); BASOPHILS % (AUTO) 1.2 % (0.2-1.0); EOSINOPHILS # (AUTO) 0.4 x10^3/uL (0.0-0.2); EOSINOPHILS % (AUTO) 5.8 % (0.9-2.9); LYMPHOCYTES # (AUTO) 3.2 X10^3/uL (1.3-2.9); LYMPHOCYTES % (AUTO) 52.6 % (21.0-51.0); MEAN CORPUSCULAR HEMOGLOBIN 28.6 pg (27.0-34.0); MEAN CORPUSCULAR HGB CONC 34.1 g/dL (33.0-35.0); MEAN CORPUSCULAR VOLUME 83.7 fL (80.0-100.0); MEAN PLATELET VOLUME 8.9 fL (7.4-11.0); MONOCYTES # (AUTO) 0.4 x10^3/uL (0.3-0.8); MONOCYTES % (AUTO) 6.6 % (0.0-13.0); NEUTROPHILS # (AUTO) 2.1 x10^3/uL (2.2-4.8); NEUTROPHILS % (AUTO) 33.8 % (42.0-75.0); PLATELET COUNT 302 X10^3/uL (150.0-450.0); RED CELL DISTRIBUTION WIDTH 13.1 % (11.6-16.5); WHITE BLOOD COUNT 6.1 X10^3/uL (3.6-10.0)
[2023-01-13 05:43] LABS: BLOOD UREA NITROGEN 4 mg/dL (7-18); CALCIUM 9.1 mg/dL (8.5-10.1); CARBON DIOXIDE 29.9 mmol/L (21-32); CHLORIDE 102 mmol/L (98-107); COR NA(FOR HYPERGLY) 141 mmol/L (136-145); CREATININE 0.72 mg/dL (0.55-1.02); GLUCOSE 165 mg/dL (65-99); POTASSIUM 3.5 mmol/L (3.5-5.1); SODIUM 139 mmol/L (136-145); eGFR NON BLACK RACES > 60 (>60)
[2023-01-13] MEDS ORDERED: AMARYL TAB 4 MG ONE (05:52)
[2023-01-13] MEDS: AMARYL TAB 4 MG PO SCH ×2 (06:01→16:00)
[2023-01-13 06:09] LABS: ALANINE AMINOTRANSFERASE 16 Units/L (12-78); ALBUMIN 3.4 g/dL (3.4-5.0); ALKALINE PHOSPHATASE 121 Units/L (46-116); ASPARTATE AMINO TRANSFERASE 10 Units/L (15-37); TOTAL PROTEIN 6.8 g/dL (6.4-8.2)
[2023-01-13] MEDS ORDERED: CONSULT PHARMACY - POTASSIUM & MAGNESIUM XX SCH ×2 (07:00→20:00)
[2023-01-13] MEDS ORDERED: FIORICET TAB PO ONE ×2 (08:55→09:00)
[2023-01-13] MEDS: CRESTOR TAB 10 MG PO SCH (08:58)
[2023-01-13] MEDS: GLUCOPHAGE PO SCH ×2 (08:59→20:54)
[2023-01-13] MEDS: GLUCOTROL PO SCH ×2 (09:00→20:55)
[2023-01-13] MEDS ORDERED: K-DUR TAB 20 MEQ PO ONE ×2 (09:00→09:04)
[2023-01-13] MEDS: MAG-OX TAB PO SCH ×2 (09:00→10:24)
[2023-01-13] MEDS: NEURONTIN TAB 600 MG PO SCH (09:00)
[2023-01-13] MEDS: SINGULAIR TAB 10 MG PO SCH (09:02)
[2023-01-13] MEDS: ZOLOFT PO SCH (09:03)
[2023-01-13] MEDS ORDERED: NORMODYNE TAB 100 MG ONE (09:04)
[2023-01-13] MEDS: NORMODYNE TAB 100 MG PO SCH ×2 (09:07→21:03)
[2023-01-13] MEDS ORDERED: XANAX ONE (09:34)
[2023-01-13] MEDS: XANAX PO PRN ×2 (09:36→22:35)
[2023-01-13] MEDS: NovoLIN R (or HumuLIN R) SUBCUT PRN ×3 (11:50→22:30)
[2023-01-13] MEDS ORDERED: NovoLIN R (or HumuLIN R) ONE (11:52)
[2023-01-13] MEDS: NORCO 10/325 TAB PO PRN (16:00)
[2023-01-13] MEDS ORDERED: GLUCOPHAGE ONE (20:33)
[2023-01-13] MEDS: SNACK - Diabetic Appropriate PO SCH (20:35)
[2023-01-13] MEDS ORDERED: MAG-OX TAB PO SCH (21:00)
[2023-01-13] MEDS ORDERED: DUONEB 0.5 MG/3 MG (3 mL) NEB ONE (22:07)
[2023-01-13] MEDS: DUONEB 0.5 MG/3 MG (3 mL) NEB PRN (22:10)
[2023-01-13] MEDS ORDERED: POTASSIUM CHLORIDE LIQ PO ONE (23:00)
[2023-01-14] MEDS: NovoLIN R (or HumuLIN R) SUBCUT PRN ×2 (05:53→12:41)
[2023-01-14] MEDS: AMARYL TAB 4 MG PO SCH (06:54)
[2023-01-14 06:59] LABS: BASOPHILS # (AUTO) 0.1 X10^3/uL (0.0-0.1); BASOPHILS % (AUTO) 0.9 % (0.2-1.0); EOSINOPHILS # (AUTO) 0.4 x10^3/uL (0.0-0.2); EOSINOPHILS % (AUTO) 6.1 % (0.9-2.9); HEMOGLOBIN 13.9 g/dL (12.0-16.0); LYMPHOCYTES # (AUTO) 2.8 X10^3/uL (1.3-2.9); LYMPHOCYTES % (AUTO) 41.4 % (21.0-51.0); MEAN CORPUSCULAR HEMOGLOBIN 28.2 pg (27.0-34.0); MEAN PLATELET VOLUME 9.5 fL (7.4-11.0); MONOCYTES # (AUTO) 0.4 x10^3/uL (0.3-0.8); NEUTROPHILS # (AUTO) 3.1 x10^3/uL (2.2-4.8); NEUTROPHILS % (AUTO) 45.6 % (42.0-75.0); PLATELET COUNT 276 X10^3/uL (150.0-450.0); RED BLOOD COUNT 4.93 X10^6/uL (3.5-5.4); RED CELL DISTRIBUTION WIDTH 12.9 % (11.6-16.5); WHITE BLOOD COUNT 6.8 X10^3/uL (3.6-10.0)
[2023-01-14 07:10] LABS: ALANINE AMINOTRANSFERASE 15 Units/L (12-78); ALBUMIN 3.5 g/dL (3.4-5.0); ALKALINE PHOSPHATASE 121 Units/L (46-116); ASPARTATE AMINO TRANSFERASE 11 Units/L (15-37); BLOOD UREA NITROGEN 4 mg/dL (7-18); CARBON DIOXIDE 26.1 mmol/L (21-32); CHLORIDE 100 mmol/L (98-107); COR NA(FOR HYPERGLY) 138 mmol/L (136-145); CREATININE 0.76 mg/dL (0.55-1.02); GLUCOSE 193 mg/dL (65-99); MAGNESIUM 1.8 mg/dL (2.0-2.9); POTASSIUM 3.9 mmol/L (3.5-5.1); SODIUM 136 mmol/L (136-145); TOTAL PROTEIN 6.9 g/dL (6.4-8.2); eGFR NON BLACK RACES > 60 (>60)
[2023-01-14] MEDS ORDERED: CONSULT PHARMACY - POTASSIUM & MAGNESIUM XX SCH (08:00)
[2023-01-14] MEDS ORDERED: ZOFRAN INJ 4 MG VIAL IVP PRN (08:09)
[2023-01-14] MEDS ORDERED: GLUCOPHAGE ONE (08:30)
[2023-01-14] MEDS: CRESTOR TAB 10 MG PO SCH (08:37)
[2023-01-14] MEDS: SINGULAIR TAB 10 MG PO SCH (08:38)
[2023-01-14] MEDS: NEURONTIN TAB 600 MG PO SCH (08:38)
[2023-01-14] MEDS: DUONEB 0.5 MG/3 MG (3 mL) NEB PRN (08:38)
[2023-01-14] MEDS: ZOLOFT PO SCH (08:39)
[2023-01-14] MEDS: GLUCOPHAGE PO SCH (08:39)
[2023-01-14] MEDS: NORMODYNE TAB 100 MG PO SCH (08:39)
[2023-01-14] MEDS: GLUCOTROL PO SCH (08:39)
[2023-01-14] MEDS: NORCO 10/325 TAB PO PRN (08:40)
[2023-01-14] MEDS: MAG-OX TAB PO SCH ×2 (08:40→10:16)
[2023-01-14 09:23] VITALS: O2SAT 99
--- NOTE | 2023-01-14 11:23 | PCM.PROG ---
Progress Note Progress Note for Day of Date of Exam: 01/14/23 Subjective Subjective: The patient was walking to the bathroom this morning when I entered her room. She reports she does not feel any better today. I asked her if she felt like going home when she does not. She is speaking clearly at this time and does not appear to have any trouble getting her words out but when I examined her she seems to have right upper extremity weakness compared to the left. She has no noticeable drooping of the corner of the mouth nor ptosis of the eyelid. She was diagnosed with heat exhaustion a few days ago when initially her symptoms began. She had 2 CTs of the brain yesterday and on January 10, 2023, that were both normal. Given the neurological symptoms that she had on admission and the ER visits on the days prior I think we should at least obtain an MRI of the patient's brain before discharge home. Past Medical Family Social History Past Med/Fam/Surg Hx: No changes since H&P Allergies: Allergies cheese Allergy (Verified 01/10/23 05:50) Vital Signs and I&O's Vital Signs: Vital Signs Temperature 99.0 F Temperature 98.0 F Pulse Rate [Right Brachial] 102 Pulse Rate [Right Brachial] 95 Respiratory Rate 20 Respiratory Rate 18 Respiratory Rate 20 Blood Pressure [Left Arm] 127/71 Blood Pressure [Left Arm] 118/73 O2 Sat by Pulse Oximetry 99 O2 Sat by Pulse Oximetry 100 Intake and Output: Intake & Output 01/11/23 01/12/23 01/13/23 01/14/23 11:59 11:59 11:59 11:59 Intake Total 410 / 410 940 / 940 Output Total 300 / 300 Balance 110 / 110 940 / 940 Physical Exam Oriented: Normal Eyes: Normal Ear: Normal Nose: Normal Throat: Normal Respiratory: Normal Cardiovascular: Normal : Normal Auscultation: Bowel Sounds: Normal Tenderness: Normal Skin: Normal Musculoskeletal: Normal, Right, Hand and Motor Deficit (4/5 strength on right and 5/5 strength on left) Psychiatric: Normal Mood Description: Calm Affect: Normal Speech Pattern: Clear and Appropriate Laboratory and Diagnostics 01/14/23 05:56 01/14/23 05:56 Labs: Laboratory WBC 6.8 X10^3/uL (3.6-10.0) 01/14/23 05:56 RBC 4.93 X10^6/uL (3.5-5.4) 01/14/23 05:56 Hgb 13.9 g/dL (12.0-16.0) 01/14/23 05:56 Hct 41.0 % (36.0-47.0) 01/14/23 05:56 MCV 83.0 fL (80.0-100.0) 01/14/23 05:56 MCH 28.2 pg (27.0-34.0) 01/14/23 05:56 MCHC 34.0 g/dL (33.0-35.0) 01/14/23 05:56 RDW 12.9 % (11.6-16.5) 01/14/23 05:56 Plt Count 276 X10^3/uL (150.0-450.0) 01/14/23 05:56 MPV 9.5 fL (7.4-11.0) 01/14/23 05:56 Neut % (Auto) 45.6 % (42.0-75.0) 01/14/23 05:56 Lymph % (Auto) 41.4 % (21.0-51.0) 01/14/23 05:56 [facility] % (Auto) 6.0 % (0.0-13.0) 01/14/23 05:56 Eos % (Auto) 6.1 % (0.9-2.9) H 01/14/23 05:56 Baso % (Auto) 0.9 % (0.2-1.0) 01/14/23 05:56 Neut # (Auto) 3.1 x10^3/uL (2.2-4.8) 01/14/23 05:56 Lymph # (Auto) 2.8 X10^3/uL (1.3-2.9) 01/14/23 05:56 [facility] # (Auto) 0.4 x10^3/uL (0.3-0.8) 01/14/23 05:56 Eos # (Auto) 0.4 x10^3/uL (0.0-0.2) H 01/14/23 05:56 Baso # (Auto) 0.1 X10^3/uL (0.0-0.1) 01/14/23 05:56 Absolute Nucleated RBC 0.1 /100WBC 01/14/23 05:56 ESR 37 MM/HOUR (0-20) H 01/12/23 17:40 Sodium 136 mmol/L (136-145) 01/14/23 05:56 Corrected Sodium 138 mmol/L (136-145) 01/14/23 05:56 Potassium 3.9 mmol/L (3.5-5.1) 01/14/23 05:56 Chloride 100 mmol/L (98-107) 01/14/23 05:56 Carbon Dioxide 26.1 mmol/L (21-32) 01/14/23 05:56 BUN 4 mg/dL (7-18) L 01/14/23 05:56 Creatinine 0.76 mg/dL (0.55-1.02) 01/14/23 05:56 Est GFR (MDRD) Af Amer > 60 (>60) 01/14/23 05:56 Est GFR (MDRD) Non-Af > 60 (>60) 01/14/23 05:56 Glucose 193 mg/dL (65-99) H 01/14/23 05:56 POC Glucose (mg/dL) 201 mg/dL (65-99) H 01/14/23 05:52 Calcium 9.0 mg/dL (8.5-10.1) 01/14/23 05:56 Corrected Calcium TNP 01/14/23 05:56 Phosphorus 3.5 mg/dL (2.6-4.7) 01/12/23 17:40 Magnesium 1.8 mg/dL (2.0-2.9) L 01/14/23 05:56 Total Bilirubin 0.40 mg/dL (0.2-1.0) 01/14/23 05:56 AST 11 Units/L (15-37) L 01/14/23 05:56 ALT 15 Units/L (12-78) 01/14/23 05:56 Alkaline Phosphatase 121 Units/L (46-116) H 01/14/23 05:56 Troponin I High Sens < 4.0 ng/L (4.0-60.0) L 01/12/23 17:40 C-Reactive Protein 2.80 mg/L (0-3.0) 01/12/23 17:40 Total Protein 6.9 g/dL (6.4-8.2) 01/14/23 05:56 Albumin 3.5 g/dL (3.4-5.0) 01/14/23 05:56 Globulin 3.4 g/dL (2.5-4.5) 01/14/23 05:56 Albumin/Globulin Ratio 1.0 Ratio (1.1-2.1) L 01/14/23 05:56 TSH 3rd Generation 0.757 uIU/mL (0.358-3.74) 01/12/23 17:40 Plan (1) Right arm weakness: Status: Acute Plan: The patient needs an MRI of the brain since CTs x2 were normal. If the patient has had a recent neurological event that was ischemic CTs will not show any abnormalities. However, an MRI will show early acute ischemic changes. We will go ahead and proceed with an MRI of the brain. (2) Heat exhaustion: Status: Acute Qualifiers: Encounter type: sequela Qualified Code(s): T67.5XXS - Heat exhaustion, unspecified, sequela Narrative Support Text: If the patient did truly in fact had an episode of heat exhaustion it is also noted that it could cause some neurological symptoms. Plan: Continue IV hydration. (3) Generalized weakness: Status: Acute (4) Altered mental status: Status: Acute (5) Atypical migraine: Status: Acute
[2023-01-14] MEDS: XANAX PO PRN (12:33)
[2023-01-14 13:13] VITALS: BP 135/64; PULSE 95; RESP 18; TEMP 98.3
--- NOTE | 2023-01-14 14:57 | VAS ---
HISTORYReason For StudySTUDYCAROTID USCOMPARISONNone.TECHNIQUERealtime ultrasound, color doppler flow study and the spectral analysis.FINDINGSNo dominant calcified or noncalcified plaquesRIGHT:The maximum peak systolic velocity of the right PROXIMAL common carotid artery is 69 cm per second.The maximum peak systolic velocity of the right DISTAL common carotid artery is 101 cm per second.The maximum peak systolic velocity of the right PROXIMAL internal carotid artery is 77 cm per second.The maximum peak systolic velocity of the right MID internal carotid artery is 88 cm per second.The maximum peak systolic velocity of the right DISTAL internal carotid artery is 78 cm per second.The maximum peak systolic velocity of the right external carotid artery is 92 cm per second.The peak systolic velocity ratio of the right ICA/CCA ratio is 0.8LEFT:The maximum peak systolic velocity of the left PROXIMAL common carotid artery is 79 cm per second.The maximum peak systolic velocity of the left DISTAL common carotid artery is 67 cm per second.The maximum end diastolic velocity of the left PROXIMAL internal carotid artery is 88 cm per second.The maximum end diastolic velocity of the left MID internal carotid artery is 63 cm per second.The maximum end diastolic velocity of the left DISTAL internal carotid artery is 66 cm per second.The maximum peak systolic velocity of the left external carotid artery is 73 cm per second.The peak systolic velocity ratio of the left ICA/CCA is 1.2.The vertebral arteries are patent and demonstrate normal [antegrade] flow bilaterally.IMPRESSIONNo sonographic evidence of hemodynamically significant bilateral internal carotid arteries stenosis.Electronically signed by: Kelli Dotson (Jan 14, 2023 14:51:56)
--- NOTE | 2023-01-14 14:57 | MRI ---
HISTORYbilateral weakness, speech difficulty, memory lossSTUDYBRAIN W/O CONCOMPARISONCT head dated 01/12/2023TECHNIQUEMultiplanar multi-sequence MRI of the brain was obtained utilizing standard departmental protocol. Sagittal and axial T1 weighted images were obtained. Axial T2 and flair weighted images were performed as well. Axial diffusion weighted and ADC trace mapping was performed.FINDINGSThe ventricles are normal in size and symmetric. There is no evidence of an acute infarct,no focal areas of restricted diffusion.There is normal midline anatomy. No sellar masses. The cervicocranial junction is unremarkable, no nasopharyngeal masses.The main arterial and venous flow voids are presentThere is no abnormal signal in the mastoid cells.There is mucosal thickening of the posterior right ethmoidal cells.No orbital masses. No evidence of white matter low areasNo intra or extra-axial fluid collections. No abnormal intraparenchymal susceptibility artifact.IMPRESSIONNo evidence of acute infarcts no dominant areas of white matter disease or abnormal signal on FLAIR imagesMild mucosal thickening of the right posterior ethmoidal cells.Electronically signed by: Kelli Dotson (Jan 14, 2023 14:49:08)
[2023-01-14] MEDS ORDERED: MAG-OX TAB PO SCH (21:00)
--- NOTE | 2023-01-20 09:54 | DR.H&P ---
H&P History & Physical for Day of: H&P Date: 01/13/23 Chief Complaint Chief Complaint: Headache Generalized weakness Allergies Allergies Allergy/AdvReac Type Severity Reaction Status Date / Time cheese Allergy Verified 01/10/23 05:50 History of Present Illness History of Present Illness: Pt is a 42 year old female presenting with generalized weakness, stuttering speech, and headache. She reports symptoms started a few days ago and gradually worsened. Labs/imaging: Wbc 6.1, Hgb 14, Plt 302, Na 139, K 3.5, Creatinine 0.72, Glucose 165, CT brain negative for acu te intracranial process. On exam patient resting comfortably in bed. Her speech is back to normal. She exhibits some weakness in raising her legs and her left arm. CT of the brain was negative. Due to headache possibly atypical migraine etiology. No signs of infection. Will order physical therapy to evaluate. Order MRI, carotid ultrasound for further evaluation. Continue closely monitor and follow-up labs imaging in the morning. Past Medical History Past Medical History: Anemia, Anxiety, Depression, Diabetes, Dyslipidemia, GERD and Hypertension Past Surgical History Surgical History: Cholecystectomy Family History Family Medical History: Diabetes Mellitus and Hypertension Social History Does patient currently use any type of tobacco product: No Have you used tobacco products in the last 12 months: No Type of Tobacco Use: None Does any household member use tobacco: No Alcohol Use: None Drug Use: None Medications Home Medications: Home Medications Medication Instructions Recorded Confirmed Type alprazolam 0.5 mg tablet 0.5 mg PO BID PRN 01/12/23 01/12/23 History blood sugar diagnostic (True 01/12/23 01/12/23 History Metrix Glucose Test Strip) famotidine 20 mg tablet 20 mg PO BID PRN 01/12/23 01/12/23 History furosemide 20 mg tablet 20 mg PO QDAY PRN swelling 01/12/23 01/12/23 History gabapentin 600 mg tablet 600 mg PO QDAY 01/12/23 01/12/23 History glimepiride 4 mg tablet 4 mg PO BID 01/12/23 01/12/23 History glipizide 10 mg tablet 10 mg PO BID 01/12/23 01/12/23 History hydrocodone 10 mg-acetaminophen 1 tab PO BID PRN 01/12/23 01/12/23 History 325 mg tablet hydroxyzine HCl 25 mg tablet 25 mg PO QDAY PRN itch 01/12/23 01/12/23 History insulin degludec 200 unit/mL (3 35 unit subcut BID 01/12/23 01/12/23 History mL) subcutaneous pen (Tresiba FlexTouch U-200 insulin) ipratropium 0.5 mg-albuterol 3 mg 3 ml inhalation Q4-6H PRN 01/12/23 01/12/23 History (2.5 mg base)/3 mL nebulization soln labetalol 100 mg tablet 100 mg PO BID 01/12/23 01/12/23 History metformin 1,000 mg tablet 1,000 mg PO BID 01/12/23 01/12/23 History montelukast 10 mg tablet 10 mg PO QDAY 01/12/23 01/12/23 History promethazine 25 mg tablet 25 mg PO QDAY PRN nausea/vomiting 01/12/23 01/12/23 History rosuvastatin 10 mg tablet 10 mg PO QDAY 01/12/23 01/12/23 History semaglutide 0.25 mg or 0.5 mg (2 0.5 mg subcut QWEEK 01/12/23 01/12/23 History mg/3 mL) subcutaneous pen injector (Ozempic) sertraline 25 mg tablet 25 mg PO QDAY 01/12/23 01/12/23 History Labs 01/14/23 05:56 01/14/23 05:56 Labs: Laboratory WBC 6.1 X10^3/uL (3.6-10.0) 01/13/23 05:16 RBC 4.90 X10^6/uL (3.5-5.4) 01/13/23 05:16 Hgb 14.0 g/dL (12.0-16.0) 01/13/23 05:16 Hct 41.0 % (36.0-47.0) 01/13/23 05:16 MCV 83.7 fL (80.0-100.0) 01/13/23 05:16 MCH 28.6 pg (27.0-34.0) 01/13/23 05:16 MCHC 34.1 g/dL (33.0-35.0) 01/13/23 05:16 RDW 13.1 % (11.6-16.5) 01/13/23 05:16 Plt Count 302 X10^3/uL (150.0-450.0) 01/13/23 05:16 MPV 8.9 fL (7.4-11.0) 01/13/23 05:16 Neut % (Auto) 33.8 % (42.0-75.0) L 01/13/23 05:16 Lymph % (Auto) 52.6 % (21.0-51.0) H 01/13/23 05:16 Pender % (Auto) 6.6 % (0.0-13.0) 01/13/23 05:16 Eos % (Auto) 5.8 % (0.9-2.9) H 01/13/23 05:16 Baso % (Auto) 1.2 % (0.2-1.0) H 01/13/23 05:16 Neut # (Auto) 2.1 x10^3/uL (2.2-4.8) L 01/13/23 05:16 Lymph # (Auto) 3.2 X10^3/uL (1.3-2.9) H 01/13/23 05:16 Pender # (Auto) 0.4 x10^3/uL (0.3-0.8) 01/13/23 05:16 Eos # (Auto) 0.4 x10^3/uL (0.0-0.2) H 01/13/23 05:16 Baso # (Auto) 0.1 X10^3/uL (0.0-0.1) 01/13/23 05:16 Absolute Nucleated RBC 0.1 /100WBC 01/13/23 05:16 ESR 37 MM/HOUR (0-20) H 01/12/23 17:40 Sodium 139 mmol/L (136-145) 01/13/23 05:16 Corrected Sodium 141 mmol/L (136-145) 01/13/23 05:16 Potassium 3.5 mmol/L (3.5-5.1) 01/13/23 05:16 Chloride 102 mmol/L (98-107) 01/13/23 05:16 Carbon Dioxide 29.9 mmol/L (21-32) 01/13/23 05:16 BUN 4 mg/dL (7-18) L 01/13/23 05:16 Creatinine 0.72 mg/dL (0.55-1.02) 01/13/23 05:16 Est GFR (MDRD) Af Amer > 60 (>60) 01/13/23 05:16 Est GFR (MDRD) Non-Af > 60 (>60) 01/13/23 05:16 Glucose 165 mg/dL (65-99) H 01/13/23 05:16 POC Glucose (mg/dL) 201 mg/dL (65-99) H 01/14/23 05:52 Calcium 9.1 mg/dL (8.5-10.1) 01/13/23 05:16 Corrected Calcium TNP 01/13/23 05:16 Phosphorus 3.5 mg/dL (2.6-4.7) 01/12/23 17:40 Magnesium 1.8 mg/dL (2.0-2.9) L 01/13/23 05:16 Total Bilirubin 0.30 mg/dL (0.2-1.0) 01/13/23 05:16 AST 10 Units/L (15-37) L 01/13/23 05:16 ALT 16 Units/L (12-78) 01/13/23 05:16 Alkaline Phosphatase 121 Units/L (46-116) H 01/13/23 05:16 Troponin I High Sens < 4.0 ng/L (4.0-60.0) L 01/12/23 17:40 C-Reactive Protein 2.80 mg/L (0-3.0) 01/12/23 17:40 Total Protein 6.8 g/dL (6.4-8.2) 01/13/23 05:16 Albumin 3.4 g/dL (3.4-5.0) 01/13/23 05:16 Globulin 3.4 g/dL (2.5-4.5) 01/13/23 05:16 Albumin/Globulin Ratio 1.0 Ratio (1.1-2.1) L 01/13/23 05:16 TSH 3rd Generation 0.757 uIU/mL (0.358-3.74) 01/12/23 17:40 Review of Systems Constitutional: No Symptoms Reported Eyes: No Symptoms Reported ENT: No Symptoms Reported Respiratory: No Symptoms Reported Cardiovascular: No Symptoms Reported Gastrointestinal: No Symptoms Reported Genitourinary: No Symptoms Reported Musculoskeletal: No Symptoms Reported Skin: No Symptoms Reported Neurological: Weakness and Change in Speech Physical Exam Vital Signs: Vital Signs Temperature 98.0 F Temperature 97.5 F Pulse Rate [Right Brachial] 95 Pulse Rate [Right Brachial] 95 Respiratory Rate 20 Respiratory Rate 18 Blood Pressure [Left Arm] 118/73 Blood Pressure [Left Arm] 131/84 O2 Sat by Pulse Oximetry 100 O2 Sat by Pulse Oximetry 100 Oriented: Normal Eyes: Normal Ear: Normal Nose: Normal Throat: Normal Respiratory: Clear Throughout Cardiovascular: Normal : Normal Auscultation: Bowel Sounds: Normal Palpation: Normal Tenderness: Normal Skin: Normal Musculoskeletal: Motor Deficit (weakness in bilateral lower extremity and left upper arm) Psychiatric: Normal Mood Description: Calm and Appropriate Affect: Normal Speech Pattern: Clear and Appropriate Assessment/Plan (1) Generalized weakness: Status: Acute Plan: Will get MRI for further evaluation. (2) Altered mental status: Status: Acute Plan: resolved (3) Atypical migraine: Status: Acute Plan: Will give a dose of fioricet. Review H&P Reviewed: Yes Patient was examined?: Yes
== END 2023-01-14 15:45 | disposition home or self-care (01) ==
LOC: U 17:02 → ER 17:02 → U 19:45 → MED/SURG 01-13 11:30
PROVIDERS: ADMIT Family Medicine; ATTEND Family Medicine
DX: R13.0 Aphagia; E11.65 Type 2 diabetes mellitus with hyperglycemia; R41.89 Other symptoms and signs involving cognitive functions and awareness; T67.5XXS Heat exhaustion, unspecified, sequela; I10 Essential (primary) hypertension; R41.82 Altered mental status, unspecified; K21.9 Gastro-esophageal reflux disease without esophagitis; E87.1 Hypo-osmolality and hyponatremia; E78.2 Mixed hyperlipidemia; R29.898 Other symptoms and signs involving the musculoskeletal system; R74.8 Abnormal levels of other serum enzymes; G43.009 Migraine without aura, not intractable, without status migrainosus; R26.89 Other abnormalities of gait and mobility; R70.0 Elevated erythrocyte sedimentation rate; R00.0 Tachycardia, unspecified; R53.1 Weakness; E83.42 Hypomagnesemia